=== PATIENT | male | born 1950 | race Caucasian/White ===

== ENCOUNTER 2017-04-18 08:47 | Outpatient (CLI) | payer BC, MEDICARE ==
[2017-04-18] MEDS ORDERED: ADENOSINE 90 MG/30 ML VIAL IVP ONE (10:00)
--- NOTE | 2017-04-18 12:04 | CARDIAC PROCEDURE NOTE ---
DATE OF SERVICE: 04/18/2017 00:00:00 PRIMARY CARE PHYSICIAN: Saadia Diane PA-C PROCEDURE: Pharmacological cardiac stress test. PROCEDURE SYMPTOMS: Chest pain and atrial fibrillation. CARDIAC RISK FACTORS: Include age, hypertension and hyperlipidemia. No previous cardiac procedures. CLINICAL HISTORY: A 66-year-old male without known coronary artery disease. INITIAL RESTING VITAL SIGNS: BP 138/92, heart rate 69, height 71 inches, weight 210 pounds, BMI 29.3. PROCEDURE AND FINDINGS: The patient's identity and date verified. Consent signed. Safety stop. Pharmacologic stress testing was performed with adenosine at a dose of 140 mcg/kg per minute over 6 m inutes. The heart rate increased to 95 beats per minute from the infusion. The blood pressure respons e was normal during the stress procedure. The patient developed minor infusion related symptoms, whic h resolved spontaneously. The resting electrocardiogram demonstrated atrial fibrillation with no ST o r T-wave changes. Maximum ST segment depression with stress was zero. There was no ectopy. FINAL IMPRESSION 1. Negative electrocardiogram for ischemia in the setting of vasodilator stress. 2. Negative stress test for angina. 3. Await myocardial perfusion report. JOB #: [id number] EXT JOB #:[id number]
--- NOTE | 2017-04-18 12:56 | Nuclear Medicine Prelim Report ---
Exam: NM Myocardial Perfusion STR/RST IMPRESSION: 1. Small, mild, fixed distal anteroseptal defect versus chest wall attenuation artifact. No convincin g reversible perfusion defects. 2. Normal left ventricular ejection fraction of 60%. 3. Normal segmental and global wall motion. 4. Normal left ventricular cavity size, no change with stress. [facility] SITE ID: [id number]
--- NOTE | 2017-04-18 12:58 | Nuclear Medicine Report ---
EXAM: SINGLE-ISOTOPE PHARMACOLOGICAL STRESS TEST WITH ADENOSINE. SINGLE-ISOTOPE AND SAME-DAY REST/STRESS MY OCARDIAL PERFUSION SCANS WITH TOMOGRAPHIC IMAGING, QUANTITATIVE ANALYSIS, WALL MOTION ANALYSIS AND CA LCULATION OF EJECTION FRACTION. EXAM DATE: 04/18/2017 09:53 AM. CLINICAL HISTORY: CHEST PAIN, AFIB. COMPARISON: None. TECHNIQUE: Following the intravenous administration of 8.9 mCi of Tc-99m sestamibi, a rest myocardial perfusion scan was done with tomography. Motion correction was applied when appropriate. After a delay of several hours on the same day, a pharmacological stress was performed with the infus ion of 80 mg of adenosine. According to protocol, 37.6 mCi of Tc-99m sestamibi was injected for stres s myocardial perfusion scan. Stress myocardial perfusion was done with tomography without attenuation correction. Motion correction was applied when appropriate. Gated tomographic images were obtained for wall motion analysis and computation of left ventricular ejection fraction. FINDINGS: There is some mild apical thinning noted. There is a small, mild, fixed distal anteroseptal wall defect. No reversible defects are identified. No focal wall motion abnormality is evident. The left ventricular end-diastolic volume is 99 cc. The left ventricular end-systolic volume is 39 cc . The left ventricular ejection fraction is calculated to be 60%. IMPRESSION: 1. Small, mild, fixed distal anteroseptal defect versus chest wall attenuation artifact. No convincin g reversible perfusion defects. 2. Normal left ventricular ejection fraction of 60%. 3. Normal segmental and global wall motion. 4. Normal left ventricular cavity size, no change with stress. [facility] Referring Provider Line: [phone] SITE ID: [id number]
[2017-04-18 13:26] VITALS: BP 136/92
== END 2017-04-18 08:48 | disposition home or self-care (01) ==
LOC: DI 08:47
PROVIDERS: ATTEND Physician Assistant Medical
DX: R07.9 Chest pain, unspecified (principal); I48.0 Paroxysmal atrial fibrillation
CPT/HCPCS: 78452; 93017; A9500; J0153

== ENCOUNTER 2017-06-19 13:53 | Day surgery (SDC) | payer BC, MEDICARE ==
[~2017-06-19 13:53] MED LIST: MIDAZOLAM 2 MG/2 ML VIAL IVP ONE; fentaNYL 100 MCG/2 ML VIAL IVP ONE
[2017-06-19] MEDS ORDERED: LACTATED RINGERS 1,000 ML IV ONE (14:17)
[2017-06-19 16:33] VITALS: BP 122/70
== END 2017-06-19 13:54 | disposition home or self-care (01) ==
LOC: SDS 13:53
PROVIDERS: ATTEND Internal Medicine
PROC: 0DJD8ZZ Inspection of Lower Intestinal Tract, Via Natural or Artificial Opening Endoscopic (ICD-10-PCS; principal; 2017-06-19 15:00)
DX: Z12.11 Encounter for screening for malignant neoplasm of colon (principal); K64.8 Other hemorrhoids; I48.91 Unspecified atrial fibrillation; Z79.01 Long term (current) use of anticoagulants; J45.909 Unspecified asthma, uncomplicated
CPT/HCPCS: G0121; J7120

== ENCOUNTER 2017-08-20 12:55 | Outpatient (CLI) | payer BC, MEDICARE | END 2017-08-20 12:56 | disposition home or self-care (01) | LOC: LAB.WCP 12:55 | PROVIDERS: ATTEND Physician Assistant Medical | DX: Z12.5 Encounter for screening for malignant neoplasm of prostate (principal) | CPT/HCPCS: 84153 ==

== ENCOUNTER 2017-10-15 12:13 | Outpatient (CLI) | payer BC, MEDICARE ==
--- NOTE | 2017-10-15 12:54 | CT Report ---
EXAM: CT HEAD EXAM DATE: 10/15/2017 12:36 PM. CLINICAL HISTORY: HEADACHE, ANTICOAGULATION THERAPY. COMPARISON: None. TECHNIQUE: Multiaxial CT images were obtained from the foramen magnum to the vertex. Reformats: Coron al. IV contrast: None. In accordance with CT protocol optimization, one or more of the following dose reduction techniques w ere utilized for this exam: automated exposure control, adjustment of mA and/or KV based on patient s ize, or use of iterative reconstructive technique. FINDINGS: Parenchyma: No intraparenchymal hemorrhage. No evidence of mass, midline shift, or CT findings of inf arction. Alnd-white differentiation is distinct. Extraaxial Spaces: Normal for age. No subdural or epidural collections identified. Ventricles: Mild enlargement due to age-related tissue loss. No hydrocephalus. Sinuses and Orbits: Trace right maxillary sinus membrane thickening. Bones: No evidence of fracture or calvarial defect. Other: None. IMPRESSION: No acute findings on head CT. [facility] Referring Provider Line: [phone] SITE ID: [id number]
== END 2017-10-15 12:14 | disposition home or self-care (01) ==
LOC: DI 12:13
PROVIDERS: ATTEND Family Medicine
DX: R51 Headache (principal); Z79.01 Long term (current) use of anticoagulants
CPT/HCPCS: 70450

== ENCOUNTER 2017-10-17 08:26 | Outpatient (CLI) | payer BC, MEDICARE ==
--- NOTE | 2017-10-21 08:46 | Ultrasound Report ---
ABDOMEN ULTRASOUND LIMITED RIGHT UPPER QUADRANT: 10/17/2017 COMPARISON: No comparison. INDICATION: Abnormal liver function test. TECHNIQUE: Real-time scanning of the right upper quadrant was performed with financial representative static images obtained. FINDINGS: The liver appears normal in size, contour and echogenicity. No masses. Portal venous flow is directed towards liver. There is no ascites. The gallbladder is unremarkable without stones, wall thickening or pericholecystic fluid. The pancreas is poorly evaluated due to bowel gas. The common duct measures 4 mm. There is no biliary dilation. The right kidney appears unremarkable. 10.5 cm. IMPRESSION: NEGATIVE RIGHT UPPER QUADRANT ULTRASOUND. TD: 10/21/2017 08:45 [place]
== END 2017-10-17 08:27 | disposition home or self-care (01) ==
LOC: DI 08:26
PROVIDERS: ATTEND Family Medicine
DX: R94.5 Abnormal results of liver function studies (principal)
CPT/HCPCS: 76705

== ENCOUNTER 2018-10-16 08:00 | Outpatient (CLI) | payer BC, MEDICARE | END 2018-10-16 23:59 | disposition home or self-care (01) | LOC: LAB.WCP 08:00 | PROVIDERS: ATTEND Family Medicine | DX: I48.91 Unspecified atrial fibrillation (principal); Z79.01 Long term (current) use of anticoagulants ==

== ENCOUNTER 2018-10-27 08:00 | Outpatient (CLI) | payer BC, MEDICARE | END 2018-10-27 23:59 | disposition home or self-care (01) | LOC: LAB.WCP 08:00 | PROVIDERS: ATTEND Family Medicine | DX: I48.91 Unspecified atrial fibrillation (principal); Z79.01 Long term (current) use of anticoagulants ==

== ENCOUNTER 2019-05-13 13:00 | Outpatient (CLI) | payer BC, MEDICARE | END 2019-05-13 23:59 | LOC: LAB.R 13:00 | PROVIDERS: ATTEND Physician Assistant | DX: N39.0 Urinary tract infection, site not specified (principal) | CPT/HCPCS: 87086 ==

== ENCOUNTER 2019-07-08 13:51 | Outpatient (CLI) | payer BC, MEDICARE ==
--- NOTE | 2019-07-09 15:28 | XRAY Report ---
Reason: LOW BACK PAIN Procedure Date: 07/08/2019 Accession Number: [id number] / [id number] Procedure: WCP - Lumbar Spine 2 View CPT Code: Final Report FULL RESULT: EXAM: LUMBOSACRAL SPINE RADIOGRAPHY EXAM DATE: 07/08/2019 01:51 PM. CLINICAL HISTORY: LOW BACK PAIN. COMPARISONS: None. TECHNIQUE: 2 views. FINDINGS: Alignment: Dextroscoliosis of lumbar spine. Bones: Five [id number] lumbar vertebral bodies are present. No fractures or bone lesions. There is bony fusion of the L4-L5 spinous processes. Disks: Severe degenerative disk disease L4-L5 and L5-S1. Facets: No degenerative changes. Sacroiliac Joints: Unremarkable. Soft Tissues: Atherosclerotic disease. IMPRESSION: 1. Severe degenerative disk disease L4-L5 and L5-S1. 2. There is bony fusion of the L4-L5 spinous processes. [facility]
== END 2019-07-08 23:59 | disposition home or self-care (01) ==
LOC: DI.WCP 13:51
PROVIDERS: ATTEND Nurse Practitioner Family
DX: M51.36 Other intervertebral disc degeneration, lumbar region (principal); M51.37 Other intervertebral disc degeneration, lumbosacral region; M43.26 Fusion of spine, lumbar region
CPT/HCPCS: 72100

== ENCOUNTER 2019-08-17 08:41 | Outpatient (CLI) | payer BC, MEDICARE ==
--- NOTE | 2019-08-17 11:31 | CARDIAC PROCEDURE NOTE ---
DATE OF SERVICE: 08/17/2019 Physician: Nolvia Brock MD, [facility] INDICATION: Persistent atrial fibrillation. CARDIAC RISK FACTORS 1. Male gender. 2. Advanced age. DESCRIPTION OF PROCEDURE: After signing informed consent, patient underwent a Francesco-protocol treadmill stress test. There was no imaging ordered with this test. RESTING HEART RATE: 90-120 in atrial fibrillation. PEAK HEART RATE: 176 (116% predicted maximum heart rate for age). RESTING BLOOD PRESSURE: 136/97. PEAK BLOOD PRESSURE: 141/86. SUMMARY: Patient exercised for 3 minutes on a Francesco-protocol treadmill stress test. The patient's resting heart rate was already tachycardic at rest. He achieved a peak heart rate of 176 (116% PMHR) and 4.7 METS. The patient had a normal heart rate and blood pressure response to exercise. He had perceived exertion of 11-13/20 on a Gerardo scale at peak. He denied any significant shortness of breath or chest pain. Oxygen saturation was 95-98% on room air throughout the entire test. RESTING EKG: Atrial fibrillation, rate 90-120, RSR' in V1, snd nonspecific T- wave flattening in leads I and aVL. EKG AT PEAK: No new ST segment or T-wave abnormalities. SUMMARY 1. Abnormal resting EKG. The patient is already tachycardic at rest. He reported that he took no morning medications, but did not know his medication names. 2. No significant ischemic EKG changes develop with exercise. 3. No imaging was ordered with this test. cc: Gama Rivera MD TD: 08/17/2019 11:21 MTDD
== END 2019-08-17 08:42 | disposition home or self-care (01) ==
LOC: DI 08:41
PROVIDERS: ATTEND Internal Medicine Cardiovascular Disease
DX: I48.19 Other persistent atrial fibrillation (principal)
CPT/HCPCS: 93017

== ENCOUNTER 2019-09-04 10:19 | Outpatient (CLI) | payer BC, MEDICARE ==
--- NOTE | 2019-09-04 11:00 | XRAY Report ---
Reason: RIB PAIN Procedure Date: 09/04/2019 Accession Number: [id number] / [id number] Procedure: WCP - Chest 2 View X-Ray CPT Code: 16727 Final Report FULL RESULT: EXAM: CHEST RADIOGRAPHY EXAM DATE: 09/04/2019 10:19 AM. CLINICAL HISTORY: Rib pain. COMPARISON: CHEST 2 VIEW PA/LAT 03/20/2017 11:13 AM. TECHNIQUE: 2 views. FINDINGS: Lungs/Pleura: No focal opacities evident. No pleural effusion. No pneumothorax. Normal volumes. Mediastinum: Heart and mediastinal contours are unremarkable. Other: None. IMPRESSION: No acute cardiopulmonary abnormality is detected. [facility]
== END 2019-09-04 23:59 | disposition home or self-care (01) ==
LOC: DI.WCP 10:19
PROVIDERS: ATTEND Family Medicine
DX: R07.81 Pleurodynia (principal)
CPT/HCPCS: 71046

== ENCOUNTER 2019-09-26 04:37 | Inpatient (IN) | payer BC, MEDICARE ==
[2019-09-26] MEDS ORDERED: SODIUM CHLORIDE 0.9% 1,000 ML IV ONE (05:22)
[2019-09-26 05:24] LABS: BASOPHILS % (AUTO) 0.4 %; EOSINOPHILS % (AUTO) 0.3 %; HGB - HEMOGLOBIN 14.7 g/dL (14.0-18.0); LYMPHOCYTES # (AUTO) 1.4 10^3/uL (1.5-3.5); LYMPHOCYTES % (AUTO) 13.7 %; MEAN CORPUSCULAR HEMOGLOBIN 32.2 pg (27.0-31.0); MEAN CORPUSCULAR HGB CONC 36.1 g/dL (32.0-36.0); MEAN CORPUSCULAR VOLUME 89.3 fL (80.0-94.0); MONOCYTES # (AUTO) 0.3 10^3/uL (0.0-1.0); MONOCYTES % (AUTO) 3.1 %; NEUTROPHILS # (AUTO) 8.3 10^3/uL (1.5-6.6); PLT - PLATELET COUNT 272 10^3/uL (130-450); RED BLOOD COUNT 4.56 10^6/uL (4.70-6.10); RED CELL DISTRIBUTION WIDTH 12.2 % (12.0-15.0); WHITE BLOOD COUNT 10.2 x10^3/uL (4.8-10.8)
[2019-09-26] MEDS ORDERED: diltiaZEM INJ 5 MG/ML VIAL IVP STA ×2 (05:26→08:04)
[2019-09-26 05:32] LABS: CALCIUM 8.6 mg/dL (8.5-10.3); MAGNESIUM 1.5 mg/dL (1.7-2.8)
[2019-09-26 05:37] LABS: ALBUMIN 3.8 g/dL (3.2-5.5); ALBUMIN/GLOBULIN RATIO 1.1 (1.0-2.2); BILIRUBIN,TOTAL 0.9 mg/dL (0.2-1.0); CALCIUM 8.5 mg/dL (8.5-10.3); TOTAL PROTEIN 7.2 g/dL (6.7-8.2)
--- NOTE | 2019-09-26 05:48 | ED Physician Documentation ---
<Dg Barrientos - Last Filed: 09/26/19 05:48> History of Present Illness - Stated complaint Stated Complaint: R LEG CRAMPS - Chief complaint Chief Complaint: Ext Problem PD PAST MEDICAL HISTORY - Past Medical History Past Medical History: Yes Cardiovascular: High cholesterol, Atrial fibrillation Respiratory: COPD, Other GI: GERD, Hiatal hernia : None Psych: None Musculoskeletal: Chronic back pain - Past Surgical History Past Surgical History: Yes General: Colonoscopy Ortho: Spine surgery - Present Medications Home Medications: Ambulatory Orders Medication Instructions Recorded Confirmed Melatonin 5 mg PO DAILY 06/18/17 09/26/19 Omeprazole 20 mg PO DAILY 06/18/17 09/26/19 Trazodone HCl 200 mg PO QPM 06/18/17 09/26/19 Warfarin [Coumadin] 5 mg PO DAILY 06/18/17 09/26/19 Alfuzosin HCl [Alfuzosin HCl ER] 10 mg PO DAILY 09/26/19 09/26/19 Cyclobenzaprine HCl 10 mg PO TID PRN 09/26/19 09/26/19 Famotidine 20 mg PO DAILY 09/26/19 09/26/19 Furosemide [Lasix] 20 mg PO DAILY 09/26/19 09/26/19 Metoclopramide HCl 5 mg PO DAILY 09/26/19 09/26/19 Multivitamin [Multivitamins] 1 cap PO DAILY 09/26/19 09/26/19 Oxybutynin Chloride [Ditropan Xl] 10 mg PO DAILY 09/26/19 09/26/19 Pramipexole [Mirapex] 2 tab PO DAILY 09/26/19 09/26/19 - Allergies Allergies/Adverse Reactions: Allergies Allergy/AdvReac Type Severity Reaction Status Date / Time methadone AdvReac sleep apnea Verified 09/26/19 05:11 - Social History Does the pt smoke?: No Smoking Status: Never smoker Does the pt drink ETOH?: Yes ETOH Use: Beer Does the pt have substance abuse?: No - Immunizations Immunizations are current?: Yes Departure - Departure Disposition: 66 [facility] DC/Xfer Clinical Impression: Atrial fibrillation with RVR, Dehydration Cellulitis Qualifiers: Site of cellulitis: extremity Site of cellulitis of extremity: upper extremity Laterality: right Qualified Code(s): L03.113 - Cellulitis of right upper limb Condition: Stable <Plastino,Robin B - Last Filed: 09/26/19 09:53> History of Present Illness - History obtained from History obtained from: Patient, Family - History of Present Illness Timing: How many days ago (2) - Additonal information Additional information: 69-year-old male with a history of atrial fibrillation that is persistent has d eveloped cramping in his right thigh and in his right arm. He has been in to see his doctor with this was diagnosed with bursitis yesterday he was awakened at 3:00 in the morning with cramping to the right thigh and noticed his right arm is now swollen and red. Review of Systems Constitutional: reports: Chills, Myalgias, Fatigue. denies: Fever Eyes: denies: Decreased vision Ears: denies: Ear pain Nose: denies: Rhinorrhea / runny nose, Congestion Throat: denies: Sore throat Cardiac: reports: Palpitations. denies: Chest pain / pressure Respiratory: denies: Dyspnea, Cough GI: denies: Abdominal Pain, Abdominal Swelling, Nausea, Vomiting : denies: Dysuria Skin: denies: Rash Musculoskeletal: reports: Extremity pain, Joint pain, Extremity swelling. denies: Neck pain, Back pain Neurologic: reports: Generalized weakness. denies: Focal weakness, Numbness PD ED PE NORMAL - Vitals Vital signs reviewed: Yes (Tachycardic and hypertensive) - General General: Alert and oriented X 3, Well developed/nourished, Other (tachypneic with dry mucous membrans ) - HEENT HEENT: Atraumatic, PERRL, EOMI - Cardiac Cardiac: Other (Irregularly irregular rate and rhythm with a 2 out of 6 holosystolic murmur) - Respiratory Respiratory: No respiratory distress, Clear bilaterally - Abdomen Abdomen: Soft, Non tender - Back Back: No CVA TTP, No spinal TTP - Derm Derm: Normal color, Warm and dry, No rash - Extremities Extremities: No deformity, Other (There is erythema to the right arm from the distal forearm to the mid arm with swelling mild tenderness over the olecranon. There is no fluctuance noted. Distal neurovascular components are intact.) - Neuro Neuro: Alert and oriented X 3, doormaker 2-12 intact, No motor deficit, No sensory deficit, Normal speech Eye Opening: Spontaneous Motor: Obeys Commands Verbal: Oriented GCS Score: 15 - Psych Psych: Normal mood, Normal affect Results - Vitals Vitals: Vital Signs - 24 hr 09/26/19 09/26/19 09/26/19 04:40 05:20 05:31 Temperature 37.3 C Heart Rate 140 H 151 H 149 H Respiratory 22 25 H 22 Rate Blood Pressure 148/101 H 165/93 H 152/78 H O2 Saturation 94 95 98 09/26/19 09/26/19 09/26/19 05:39 05:44 06:02 Temperature 37.8 C H Heart Rate 112 H 121 H 153 H Respiratory 25 H 19 23 Rate Blood Pressure 115/68 115/68 105/71 O2 Saturation 95 95 97 09/26/19 09/26/19 09/26/19 06:27 06:54 07:30 Temperature 38.3 C H 37.0 C 38.2 C H Heart Rate 149 H 134 H 150 H Respiratory 22 18 20 Rate Blood Pressure 105/71 122/75 118/73 O2 Saturation 94 94 95 09/26/19 09/26/19 08:30 09:30 Temperature 37.4 C Heart Rate 112 H 106 H Respiratory 16 13 Rate Blood Pressure 97/60 100/70 O2 Saturation 97 94 Oxygen O2 Source Room air - EKG (time done) 0505 QRS: Low voltage Ischemia: ST depression (minimal inferior) Compare to prior EKG: Old EKG unavailable Computer interpretation: Agree with computer - Labs Labs: Laboratory Tests 09/26/19 09/26/19 09/26/19 05:00 05:00 05:00 WBC 10.2 RBC 4.56 L Hgb 14.7 Hct 40.7 L MCV 89.3 MCH 32.2 H MCHC 36.1 H RDW 12.2 Plt Count 272 MPV 10.0 Neut # (Auto) 8.3 H Lymph # (Auto) 1.4 L [place] # (Auto) 0.3 Eos # (Auto) 0.0 Baso # (Auto) 0.0 Absolute Nucleated RBC 0.00 Nucleated RBC % 0.0 PT INR APTT Sodium 130 L Potassium 3.6 Chloride 93 L Carbon Dioxide 25 Anion Gap 12.0 BUN 12 Creatinine 1.0 Estimated GFR (MDRD) 74 L Glucose 121 H Lactic Acid Calcium 8.5 8.6 Magnesium 1.5 L Total Bilirubin 0.9 AST 22 ALT 18 Alkaline Phosphatase 80 Lactate Dehydrogenase Troponin I High Sens Total Protein 7.2 Albumin 3.8 Globulin 3.4 Albumin/Globulin Ratio 1.1 Lipase 22 09/26/19 09/26/19 09/26/19 05:00 05:00 05:20 WBC RBC Hgb Hct MCV MCH MCHC RDW Plt Count MPV Neut # (Auto) Lymph # (Auto) [place] # (Auto) Eos # (Auto) Baso # (Auto) Absolute Nucleated RBC Nucleated RBC % PT 28.6 H INR 2.7 H APTT 36.1 H Sodium Potassium Chloride Carbon Dioxide Anion Gap BUN Creatinine Estimated GFR (MDRD) Glucose Lactic Acid Calcium Magnesium Total Bilirubin AST ALT Alkaline Phosphatase Lactate Dehydrogenase 143 Troponin I High Sens 6.5 Total Protein Albumin Globulin Albumin/Globulin Ratio Lipase 09/26/19 07:00 WBC RBC Hgb Hct MCV MCH MCHC RDW Plt Count MPV Neut # (Auto) Lymph # (Auto) [place] # (Auto) Eos # (Auto) Baso # (Auto) Absolute Nucleated RBC Nucleated RBC % PT INR APTT Sodium Potassium Chloride Carbon Dioxide Anion Gap BUN Creatinine Estimated GFR (MDRD) Glucose Lactic Acid 1.4 Calcium Magnesium Total Bilirubin AST ALT Alkaline Phosphatase Lactate Dehydrogenase Troponin I High Sens Total Protein Albumin Globulin Albumin/Globulin Ratio Lipase Procedures - IVC sono (time) 0815 Bedside IVC sono: IVC measures (cm) (1.18), Dehydration (est 1 liter deficit) PD MEDICAL DECISION MAKING - ED course Complexity details: reviewed results, re-evaluated patient, considered differential, d/w patient, d/w family ED course: 69-year-old male with history of atrial fibrillation who is on Coumadin is developed some cramping in his thigh and pain in his right arm and overnight erythema and swelling is developed in the right arm consistent with acute cellulitis that extends from the distal forearm to the mid arm. The patient arrives to the emergency department tachycardic and febrile with acute onset of febrile illness. He is found to be dehydrated on interrogation of the IVC and he is administered IV saline as well a rocephin. He is administered IV diltiazem 15 and then 20mg IV. This has only minimal effect on the heart rate.
[2019-09-26 06:01] LABS: INR 2.7 (0.8-1.2); PT - PROTHROMBIN TIME 28.6 secs (9.9-12.6)
[2019-09-26 06:08] LABS: PARTIAL THROMBOPLASTIN TIME 36.1 secs (24.9-33.3)
[2019-09-26] MEDS ORDERED: MORPHINE 2 MG/ML CARPUJECT IVP STA (06:26)
[2019-09-26] MEDS ORDERED: ACETAMINOPHEN 500 MG TABLET PO STA (06:27)
[2019-09-26] MEDS ORDERED: MAGNESIUM SULFATE 2 GRAM 2 GM/50 ML BAG IV ONE ×2 (08:25→11:55)
[2019-09-26] MEDS ORDERED: cefTRIAXone 1 GM in SODIUM CHLORIDE 0.9% MINIBAG 100 ML IV STA (09:13)
--- NOTE | 2019-09-26 10:45 | HISTORY & PHYSICAL EXAMINATION ---
Chief Complaint - Chief Complaint Chief Complaint: N/V, right elbow swelling History of Present Illness - Admitted From Admitted From:: ED - History Obtained From Records Reviewed: yes History obtained from: patient, patient's , chart review Exam Limitations: none - History of Present Illness HPI Comment/Other: Eddie Abarca (Nadir) is an ill appearing 69-year old white male with a past medical history of hypertension, hyperlipidemia, chronic atrial fibrillation on Warfarin, abnormal cardiac stress test, enlarged RV, laminectomy in 1998 to repair a herniated disk, staph infection with residual neurogenic bladder, h istory of home self-caths, recurrent UTIs, erectile dysfunction, chronic insomnia, chronic pain syndrome, osteoarthritis, vitamin D deficiency, costochondritis, ARMANDO without the use of a CPAP, peripheral neuropathy, chronic right sided weakness, right foot drop, ataxia, memory loss, esophageal strict ure, GERD, hiatal hernia, BPH with urinary retention, nocturia, abnormal LFTs, narcotic dependence, and 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 The patient was brought in early this morning via private car and his , Sheri for rigors described as more right than left trembling and shaking. The patient states that he woke up from it @ 0300. He went to his PCP, Cindy Garcia yesterday for right elbow pain, and was diagnosed with bursitis. After reviewing the records, he was prescribed prednisone by Cindy Garcia. He states that there was no fluid obtained from the joint, no antibiotics prescribed. The patient notes that he also had nausea with vomiting while at home this morning, but denied fevers, chills, bloody urine, new urinary incontinence, burning with urination, confusion, a new rash (other than his right elbow), diarrhea, weight loss, a recent illness, or any other events similar to this. The patient states that he did fall a few days ago and his right elbow landed on some saw-horses, but the skin remained intact, without bruising. The patient developed a fever up to 101 F while in the ED, was found to be in a fib with RVR heart rates 170s, hypotensive with B/Ps 97/60, on room air, respirations 16-20. Labs showed a normal WBC count, INR 2.7, sodium 130, K+ 3.6, GFR 74, glucose 121, magnesium 1.5 and no other abnormalities. Blood cu ltures were obtained, urine culture is pending, an indwelling stone was ordered, MUDDs tox screen given the patients narcotic abuse history and AMS. The patient was given IV fluids, IV Rocephin, with little improvement. The patient is admitted for inpatient care for sepsis, right arm cellulitis, with a low tolerance for an orthopedic surgery consult if his right elbow shows no improvement in 24 hours. Orders to obtain admission photos are pending. History - Past Medical History Cardiovascular: reports: Hypertension, High cholesterol, Coronary artery disease, Peripheral Vascular Disease, Atrial fibrillation, Murmur, Arrhythmia Respiratory: reports: COPD, Sleep apnea (noncompliant with CPAP) Neuro: reports: Dementia (memory loss for the past 2 years), Headaches, Peripheral neuropathy Endocrine/Autoimmune: reports: None GI: reports: GERD, Hiatal hernia, Other (esophageal dilation x2) : reports: Benign prostate hypertrophy, Retention, Nocturia, Frequency HEENT: reports: Chronic vision loss, Chronic sinusitis, Chronic hearing loss Psych: reports: None Musculoskeletal: reports: Chronic back pain Derm: reports: None MRSA Hx?: No - Past Surgical History General: reports: Colonoscopy, EGD (esophageal dilitation x2) Ortho: reports: Spine surgery (Laminectomy) Cardiovascular: reports: Other (cardiac stress test-abnormal per patient) - Family & Social History Family History: Mother: , Diabetes, Type 2, Father: Family History Comment/Other: Father of old age. Mother had DM, of complications related to her DM Living arrangement: At home Living Situation: With spouse/s.o. (-Sheri), With family (son-Gurdeep) Social History Notes: The patient lives independently with his Sheri, and his son Gurdeep. 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 He was injured while working as he fell off a ladder which required a laminectomy leading to narcotic dependence. He spends his time watching TV or playing on his phone daily. They have no pets at home. He admits to tobacco dependence from age [age], occasional alcohol use (a few beers weekly), and denies illicit drug use. He wishes to be a FULL code. - Substance History Use: Uses substance without health or social issues: NONE Abuse: Recurrent use of substance despite neg consequences: NONE Dependence: Experiences withdrawal or developed tolerances: NONE - POLST Patient has POLST: No POLST Status: Full Code Meds/Allgy - Home Medications Home Medications: Ambulatory Orders Medication Instructions Recorded Confirmed Melatonin 5 mg PO DAILY 06/18/17 09/26/19 Omeprazole 20 mg PO BIDAC 06/18/17 09/26/19 Trazodone HCl 200 mg PO QPM 06/18/17 09/26/19 Warfarin [Coumadin] 5 mg PO SUMOWEFRSA 06/18/17 06/19/17 Alfuzosin HCl [Alfuzosin HCl ER] 10 mg PO DAILY 09/26/19 09/26/19 Cyclobenzaprine HCl 10 mg PO TID PRN 09/26/19 09/26/19 Famotidine 20 mg PO DAILY 09/26/19 09/26/19 Furosemide [Lasix] 20 mg PO DAILY 09/26/19 09/26/19 Metoclopramide HCl 5 mg PO TID 09/26/19 09/26/19 Multivitamin [Multivitamins] 1 cap PO DAILY 09/26/19 09/26/19 Oxybutynin Chloride [Ditropan Xl] 10 mg PO DAILY 09/26/19 09/26/19 Pramipexole [Mirapex] 2 tab PO DAILY 09/26/19 Warfarin [Coumadin] 7.5 mg PO TU 09/26/19 - Allergies Allergies/Adverse Reactions: Allergies Allergy/AdvReac Type Severity Reaction Status Date / Time methadone AdvReac sleep apnea Verified 09/26/19 05:11 Review of Systems - Constitutional Constitutional: reports: Fatigue, Weakness, Poor appetite - Ears, Nose & Throat Ears, Nose & Throat: reports: Hearing loss, Postnasal drainage, Hoarseness, Dental decay - Cardiovascular Cariovascular: reports: Irregular heart rate, Decr. exercise tolerance, Or thopnea - Respiratory Respiratory: reports: Cough (chronic), Orthopnea, SOB with exertion - Gastrointestinal Gastrointestinal: reports: Abdominal distention, Nausea, Vomiting, Reflux/heartburn, Bloating, Poor appetite - Musculoskeletal Musculoskeletal: reports: Back pain, Stiffness, Limited range of motion, Muscle weakness - Integumentary Integumentary: reports: Dryness, Pigment changes - Neurological Neurological: reports: General weakness, Headache, Memory problems, Pre-existing deficit, Abnormal gait (chronic ataxia, right foot drop) - Hematologic/Lymphatic Hematologic/Lymphatic: reports: Bruising, Bleeding tendencies (chronic coumadin) - All Other Systems All Other Systems: reports: Reviewed and negative Prior Level of Functionality: Sedentary life style, recent fall resulting in a right elbow injury (closed), patient has a chronic right foot drop, drives a car, no use of a walker, o ccasional use of a cane. Exam - Vital Signs Reviewed Vital Signs: Yes Vital Signs: Vital Signs x48h Temp Pulse Resp BP Pulse Ox 09/26/19 10:30 98.4 C H 121 H 15 113/85 H 98 09/26/19 09:30 106 H 13 100/70 94 09/26/19 08:30 37.4 C 112 H 16 97/60 97 09/26/19 07:30 38.2 C H 150 H 20 118/73 95 09/26/19 06:54 37.0 C 134 H 18 122/75 94 09/26/19 06:27 38.3 C H 149 H 22 105/71 94 09/26/19 06:02 153 H 23 105/71 97 09/26/19 05:44 37.8 C H 121 H 19 115/68 95 09/26/19 05:39 112 H 25 H 115/68 95 09/26/19 05:31 149 H 22 152/78 H 98 09/26/19 05:20 151 H 25 H 165/93 H 95 09/26/19 04:40 37.3 C 140 H 22 148/101 H 94 - Physical Exam General Appearance: positive: Alert, Mild distress Eyes Bilateral: positive: No lid inflammation ENT: positive: Pharyngeal erythema, Dry mucous membranes Neck: positive: Thyroid nml, No JVD, Trachea midline Respiratory: positive: Chest non-tender, No respiratory distress, Other (scattered crackles in bilateral low lung bases) Cardiovascular: positive: Irregularly irregular, Tachycardia, Systolic murmur, Decreased pulse(s) Peripheral Pulses: positive: 1+ Abdomen: positive: Non-tender, Nml bowel sounds, Hepatomegaly, Other (rounded, soft) Back: positive: Nml inspection Skin: positive: No rash, Warm, Diaphoresis, Other (flushed, increased redness around right elbow (outlined with marking pen)) Extremities: positive: Non-tender, No pedal edema, Joint swelling, Other (Very little hair noted to BLEs, loss of sensation to feet, right chronic foot drop) Neurologic/Psychiatric: positive: Oriented x3, Weakness, Sensory loss, Other (right sided weakness-baseline since laminectomy) Reflexes: Bicep (R): 1+ (unequal hand assistant prosecuting attorney, weaker on right, patient is right handed), Bicep (L): 3+, Ankle (R): 2+, Ankle (L): 2+ Sepsis Event Note (H) - Evaluation Current Stage of Sepsis: Sepsis Possible source of Sepsis: positive: Genitourinary, Skin/soft tissue - Sepsis Criteria Sepsis Criteria: Recorded Temperature greater than 38.3C or Less than 36C, Recorded Heart Rate greater than 90 bpm, Recorded Respiratory Rate greater than 20, HAND CANDY DIPPER: altered consciousness (unrelated to primary neuro pathology), SBP drop more than 40mHg, SBP less than 90 mmHg Conclusion/Plan - Problem List (1) Sepsis Conclusion/Plan: -Patient had rigors at home, leading to coming to the ED -Hypotension, a fib RVR with rates in the 170s, febrile, temp max 101, nausea, vomiting, slight confusion -Blood cultures are pending, chest x-ray obtained, UA with culture pending -Patient is dehydrated, dry mucous membranes, now with fevers -Start IV vanco, IV cefepime, IV fluids, await echo Acute metabolic encephalopathy -Baseline memory impairment (dementia) -No history of strokes, but with chronic right sided weakness, right foot drop -No hallucinations -Sheri notes that the patient has not been acting his normal self -Likely due to sepsis -Monitor for improvement Hypomagnesaemia -Serum magnesium is only 1.5 -May have contributed to RVR -Magnesium rider x1, start oral magnesium oxide at 400 mg PO BID -Routine labs, continue telemetry Right elbow cellulitis -Saw at PCP office on 09/25/2019, no noted redness, just swelling, diagnosed with bursitis -Prescribed Prednisone, 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 Pendleton, Cardiology on 06/11/2019, who recommended a repeat nuclear stress test since he continues to have angina. Last stress test was in 2017 -Abnormal stress test noting a small, mixed fixed distal anteroseptal defect -Anticoagulated with Coumadin -INR 2.7 -Ordering Warfarin per pharmacy to help with appropriate dose, labs -No rate control medications, was given IV diltiazem in the ED -Consider adding rate control meds after echo results -Monitor on telemetry Fall -Patient has baseline ataxia since having the staph infection which caused a right sided weakness & neurogenic bladder -Patient denies a loss of consciousness -Patient does not use a walker at home -Patient admits to chronic peripheral neuropathy, claudication bilaterally, and notes that he has chronic numbness to his feet, very little hair found on legs upon my exam -Admits to a fall a few days ago resulting in soreness/pain to his right elbow -PT/OT if indicated, no needed right now Essential hypertension -Takes only furosemide at home without any other antihypertensive medication -Holding all home meds for now -Continue on telemetry, await echo results, and monitor vital signs Hyperlipidemia -Takes nothing at home, no fish oil, no statins -No recent lipid panel -Sees Dr. Pendleton Cardiology, who recommended a repeat cardiac nuclear stress test from June 2019, no follow up yet -History of elevated LFTs, may be a contraindication to statin therapy -Suggest a statin upon discharge Neurogenic bladder -Last seen by Urology on 08/25/2019 Allie Ye MD -No longer requires self catheterizations, no recent UTI, history of recurrent infections -Medically treated using uroxatral, trospium, & oxybutynin -Now home meds are on hold to allow for aggressive treatment of sepsis as we will be using IV therapy, which could potentially be too nephrotoxic in com bination with his usual meds -Indwelling stone for accurate I/Os, patient comfort -Resume when patient has improved clinical findings and infection is determined GERD -Patient is prescribed a PPI, Reglan, and famotidine at home -Hx of hiatal hernia -Status post esophageal dilations x2, sees GI for this -Continue usual home meds, monitor labs for low magnesium Restless leg syndrome -Patient was prescribed flexeril, and Mirapex at home, waiting for pharmacy to review -Also with a history of insomnia, narcotic dependence -Resume home meds after pharmacy review Insomnia -Takes high dose Trazadone 200 mg at night, melatonin -Untreated ARMANDO, nocturia getting up at least 3 times per night are contributing factors -Resume of trazodone dose due to confusion, sepsis -Monitor ARMANDO (obstructive sleep apnea) -Patient cannot recall his age when first diagnosed -Noncompliant with home CPAP, did not like the way the mask fit -No recent sleep study -No recent echo -History of RV enlargement -Exam findings of a very enlarged abdomen, gastric complaints, chronic atrial fibrillation -Await echo results, suggest a sleep study outpatient in the near future Osteoarthritis -Since laminectomy surgery in 1998, patient has been on narcotics -Consequently, has vitamin D deficiency, micro and macro vessel dysfunction -Chronic, hospice music therapy PPI use, leading to chronically low magnesium, consequently potentially leading to bone loss -No recent bone scan -No recent fractures -Chronic pain syndrome, neck and joint pain -Treat acute pain using IV pain meds, tylenol - Lab Results Lab results reviewed: Yes Fish Bones: 09/26/19 05:00 09/26/19 05:00 Core Measures - Anticipated LOS I expect patient to be DC'd or transferred within 96 hours.: Yes - DVT/VTE - Prophylaxis VTE/DVT Device ordered at admit?: Yes VTE/DVT Prophylaxis med ordered at admit?: No Not Ordered - Medical Reason: Contraindicated - Stroke - Rehab Assessment Rehab services assessment to be ordered?: No Not Ordered - Medical Reason: Contraindicated - AMI - Statin at Admit Aspirin Prescribed on Admit: Yes
--- NOTE | 2019-09-26 11:05 | XRAY Report ---
Reason: sepsis, fever, chronic cough Procedure Date: 09/26/2019 Accession Number: [id number] / [id number] Procedure: XR - Chest 1 View X-Ray CPT Code: 97396 Final Report FULL RESULT: EXAM: CHEST RADIOGRAPHY EXAM DATE: 09/26/2019 10:54 AM. CLINICAL HISTORY: Sepsis, fever, chronic cough. COMPARISON: CHEST 2 VIEW 09/04/2019 9:52 AM. TECHNIQUE: 1 view. FINDINGS: Lungs/Pleura: New patchy opacity at the left mid to lower lung consistent with pneumonia in the correct clinical context. No significant pleural effusion or evidence of pneumothorax. Mediastinum: Within exam limitations, the cardiomediastinal contour is normal. Other: None. IMPRESSION: Left mid to lower lung opacity consistent with pneumonia in the correct clinical context. This finding should be followed radiographically to resolution. RADIA
[2019-09-26] MEDS ORDERED: LIDOCAINE 2% URO-JET 5 ML SYRINGE UR ONE (11:53)
[2019-09-26] MEDS ORDERED: VANCOMYCIN PER PHARMACY 100 GM in SODIUM CHLORIDE 0.9% 250 ML IV SCH (12:00)
[2019-09-26] MEDS: LACTATED RINGERS 1,000 ML IV SCH (12:39)
--- NOTE | 2019-09-26 13:03 | PHARMACY PROGRESS NOTE ---
- Therapy Status Vancomycin regimen day #: 1 Therapy status: Awaiting steady state Basis for treatment: Empirical Treatment indication: UROSEPSIS Trough goal: 15-20 Concurrent antibiotics: CEFEPIME Q12H + ROCEPINX1 IN ED - ALICIA Risk Risk level for Acute Kidney Injury: Moderate Acute Kidney Injury risk factors: Goal trough >15, Acute hypotensive event, S epsis - Monitoring and Recommendation Clinical response to treatment: I&O Previous 24 hours 09/24/19 09/25/19 09/26/19 23:59 23:59 23:59 Intake Total 1168 Balance 1168 Lab Results 09/26/19 05:00 BUN 12 Creatinine 1.0 Estimated GFR (MDRD) 74 L Monitoring plan: Daily serum creatinine Next trough due prior to maintenance dose #: 5 Next trough due (date/time): 09/28 @ 1330 Areas for additional monitoring: Therapy de-escalation based on culture results Pharmacy recommendation: Continue current regime
[2019-09-26 13:20] LABS: MUDS CUTOFF CONCENTRATIONS CUTOFF CONC BELOW:
[2019-09-26 13:28] LABS: BILIRUBIN,URINE NEGATIVE (NEGATIVE); GLUCOSE, URINE (UA) NEGATIVE (NEGATIVE); KETONES,URINE (UA) NEGATIVE (NEGATIVE); LEUKOCYTE ESTERASE, URINE NEGATIVE (NEGATIVE); NITRITE,URINE NEGATIVE (NEGATIVE); OCCULT BLOOD,URINE NEGATIVE (NEGATIVE); PROTEIN,URINE NEGATIVE (NEGATIVE); UROBILINOGEN,URINE 0.2 (NORMAL) E.U./dL (NORMAL)
[2019-09-26 13:34] LABS: CLARITY,URINE CLEAR (CLEAR)
[2019-09-26 13:35] LABS: AMPHETAMINE SCREEN,URINE NEGATIVE (NEGATIVE); BENZODIAZEPINES SCREEN, URINE NEGATIVE (NEGATIVE); COCAINE SCREEN URINE NEGATIVE (NEGATIVE); METHADONE SCREEN, URINE NEGATIVE (NEGATIVE); METHAMPHETAMINES SCREEN, URINE NEGATIVE (NEGATIVE); OPIATE SCREEN, URINE POSITIVE (NEGATIVE); TRICYCLIC ANTIDEPRESSANT,URINE POSITIVE (NEGATIVE)
[2019-09-26 13:36] LABS: OXYCODONE SCREEN, URINE NEGATIVE (NEGATIVE); PROPOXYPHENE SCREEN, URINE NEGATIVE (NEGATIVE)
[2019-09-26] MEDS: CEFEPIME 2 GM in SODIUM CHLORIDE 0.9% MINIBAG 100 ML IV SCH (13:55)
[2019-09-26] MEDS: FAMOTIDINE 20 MG TABLET PO SCH (13:56)
[2019-09-26 14:03] LABS: RBC,URINE None Seen /HPF (0-5)
[2019-09-26 14:04] LABS: BACTERIA,URINE None Seen /HPF (None Seen); EPITHELIAL CELLS,UR RARE Renal Tubular /HPF (<= Few); SQUAMOUS EPITHELIAL CELL,UR NONE SEEN (<= Few)
[2019-09-26] MEDS: VANCOMYCIN INJ 1 GM, VANCOMYCIN INJ 500 MG in SODIUM CHLORIDE 0.9% 500 ML IV SCH (14:52)
--- NOTE | 2019-09-26 15:43 | PHARMACY PROGRESS NOTE ---
- Best Possible Medication History Admit Date and Time: 09/26/19 1033 Processed by: Pharmacy Medication History completed: Yes Patient Interview: Completed Secondary Source(s): Pharmacy records, Insurance records As the person ultimately responsible for medication therapy, providers are able to order a medication from an existing home medication list in [facility] via the "Reconcile Routine" prior to Confirmation of that medication by developer support engineer. Such practice is discouraged except when the physician, in their clinical judgment, deems that a medical need exists for a medication without regard to previous use.
[2019-09-26] MEDS: MAGNESIUM OXIDE 400 MG TABLET PO SCH (16:11)
[2019-09-26] MEDS: METOPROLOL SUCCINATE 25 MG TABLET PO SCH (16:11)
[2019-09-26] MEDS: ACETAMINOPHEN 325 MG TABLET PO PRN ×2 (16:11→20:07)
[2019-09-26] MEDS: SODIUM CHLORIDE FLUSH 0.9% 10 ML SYRINGE IVP SCH (16:11)
[2019-09-26] MEDS: WARFARIN 5 MG TABLET PO SCH (17:17)
[2019-09-26] MEDS: traZODone 50 MG TABLET PO SCH (20:08)
[2019-09-26] MEDS: NON FORMULARY MED (Melatonin [Melatonin] 10 MG) PO SCH (20:09)
[2019-09-27] MEDS: SODIUM CHLORIDE FLUSH 0.9% 10 ML SYRINGE IVP SCH ×3 (00:40→15:58)
[2019-09-27] MEDS: CEFEPIME 2 GM in SODIUM CHLORIDE 0.9% MINIBAG 100 ML IV SCH ×2 (00:40→14:15)
[2019-09-27] MEDS: ACETAMINOPHEN 325 MG TABLET PO PRN ×4 (00:46→20:19)
[2019-09-27] MEDS: VANCOMYCIN INJ 1 GM, VANCOMYCIN INJ 500 MG in SODIUM CHLORIDE 0.9% 500 ML IV SCH ×2 (02:11→14:59)
[2019-09-27 05:51] LABS: BASOPHILS % (AUTO) 0.4 %; EOSINOPHILS # (AUTO) 0.1 10^3/uL (0.0-0.7); EOSINOPHILS % (AUTO) 0.9 %; HGB - HEMOGLOBIN 12.2 g/dL (14.0-18.0); LYMPHOCYTES # (AUTO) 1.5 10^3/uL (1.5-3.5); LYMPHOCYTES % (AUTO) 13.7 %; MEAN CORPUSCULAR HEMOGLOBIN 31.5 pg (27.0-31.0); MEAN CORPUSCULAR HGB CONC 34.6 g/dL (32.0-36.0); MEAN CORPUSCULAR VOLUME 91.2 fL (80.0-94.0); MEAN PLATELET VOLUME 9.7 fL (7.4-11.4); MONOCYTES # (AUTO) 0.7 10^3/uL (0.0-1.0); NEUTROPHILS # (AUTO) 8.6 10^3/uL (1.5-6.6); NEUTROPHILS % (AUTO) 78.5 %; PLT - PLATELET COUNT 200 10^3/uL (130-450); RED BLOOD COUNT 3.87 10^6/uL (4.70-6.10); RED CELL DISTRIBUTION WIDTH 12.7 % (12.0-15.0); WHITE BLOOD COUNT 10.9 x10^3/uL (4.8-10.8)
[2019-09-27 05:55] LABS: INR 3.4 (0.8-1.2); PT - PROTHROMBIN TIME 36.6 secs (9.9-12.6)
[2019-09-27 06:01] LABS: CALCIUM 7.9 mg/dL (8.5-10.3); CREATININE 0.9 mg/dL (0.6-1.2); MAGNESIUM 2.3 mg/dL (1.7-2.8)
[2019-09-27] MEDS: FAMOTIDINE 20 MG TABLET PO SCH (08:45)
[2019-09-27] MEDS: MAGNESIUM OXIDE 400 MG TABLET PO SCH ×2 (08:46→15:58)
[2019-09-27] MEDS: METOPROLOL SUCCINATE 25 MG TABLET PO SCH ×2 (08:46→17:22)
[2019-09-27] MEDS: LACTATED RINGERS 1,000 ML IV SCH (08:47)
--- NOTE | 2019-09-27 10:37 | PROVIDER PROGRESS NOTE ---
Subjective - Prog Note Date Prog Note Date: 09/27/19 Prog Note Time: 10:34 - Subjective Pt reports feeling: Improved Subjective: Nadir complains of increased pain to his right elbow, more swelling to the area, and a new dry cough. He states that his bladder sometimes feels as if he needs to urinate, despite the new indwelling stone. He was given a medical update regarding his medical condition with family present. He was given a copy of his diagnosis list for future use. Teaching about new medications was thankfully performed by his superb RN Saadia. His IV fluids are stopped, spironolactone started, resumed his muscle relaxer to help with the bladder spasms, and we will slowly resume his urinary retention meds. Current Medications - Current Medications Current Medications: Active Medications: Acetaminophen (Tylenol) 650 mg PO Q4HR PRN Famotidine (Pepcid) 20 mg PO DAILY [facility] Cefepime HCl 2 gm/ Sodium (Chloride) 100 mls @ 200 mls/hr IV Q12H [facility] Vancomycin HCl 500 mls @ 250 mls/hr IV Q12H [facility] Magnesium Oxide (Mag Ox) 400 mg PO BIDWM [facility] Metoprolol Succinate (Toprol Xl) 25 mg PO BIDWM [facility] Non-Formulary Medication (Melatonin [Melatonin]) 10 mg PO QPM [facility] Spironolactone (Aldactone) 25 mg PO DAILY [facility] Trazodone HCl (Desyrel) 100 mg PO QPM [facility] Warfarin Sodium (Coumadin) 5 mg PO QDDINNER [facility] Warfarin Sodium (Coumadin) 7.5 mg PO TuFr@1700 [facility] HOME meds: Melatonin 10 mg PO QPM 06/18/17 Omeprazole 20 mg PO BIDAC 06/18/17 Trazodone HCl 100 mg PO QPM 06/18/17 Warfarin [Coumadin] 5 mg PO [place] 06/18/17 Alfuzosin HCl [Alfuzosin HCl ER] 10 mg PO DAILY 09/26/19 Cyclobenzaprine HCl 10 mg PO TID PRN 09/26/19 Famotidine 20 mg PO DAILY 09/26/19 Furosemide [Lasix] 20 mg PO DAILY 09/26/19 Metoclopramide HCl 5 mg PO TID 09/26/19 Multivitamin [Multivitamins] 1 cap PO DAILY 09/26/19 Oxybutynin Chloride [Ditropan Xl] 10 mg PO DAILY 09/26/19 Pramipexole [Mirapex] 0.25 mg PO DAILY 09/26/19 Warfarin [Coumadin] 7.5 mg PO TUFR 09/26/19 Objective - Vital Signs/Intake & Output Reviewed Vital Signs: Yes Vital Signs: Vital Signs x48h Temp Pulse Pulse Resp BP Pulse Ox 09/27/19 08:00 36.4 C L 87 18 125/85 H 96 09/27/19 04:06 36.4 C L 104 H 20 93 Intake & Output: Intake & Output 09/24/19 09/25/19 09/26/19 09/27/19 23:59 23:59 23:59 23:59 Intake Total 3638.663 1169.337 Output Total 2975 450 Balance 663.663 719.337 - Objective General Appearance: positive: No acute distress, Alert Eyes Bilateral: positive: Normal inspection, No lid inflammation Eyes: OU Conjunctivae pale ENT: positive: Pharyngeal erythema, Dry mucous membranes Neck: positive: Thyroid nml, Trachea midline, Stiff neck Respiratory: positive: Chest non-tender, No respiratory distress, Wheezes (scant expiratory), Other (scattered crackles, bilaterally, + cough today) Cardiovascular: positive: No gallop, Irregularly irregular, Tachycardia, Systo lic murmur Peripheral Pulses: 1+ Radial (R), 1+ Radial (L) Abdomen: positive: Non-tender, Nml bowel sounds, Hepatomegaly, Other (rounded, soft) Back: positive: Nml inspection Skin: positive: No rash, Warm, Dry Extremities: positive: Non-tender, Full ROM, Nml appearance, Pedal edema (trace, bilaterally, + abdominal edema), Joint swelling Neurologic/Psychiatric: positive: Oriented x3, CN's nml (2-12), Motor nml, Weakness, Sensory loss, Depressed mood/affect (flat) Reflexes: Bicep (R): 1+, Bicep (L): 3+ - Lab Results Fish Bones: 09/27/19 05:39 09/27/19 05:39 Other Labs: Lab Results x24hrs 09/27/19 09/27/19 09/27/19 Range/Units 05:39 05:39 05:39 WBC (4.8-10.8) x10^3/uL RBC (4.70-6.10) 10^6/uL Hgb (14.0-18.0) g/dL Hct (42.0-52.0) % MCV (80.0-94.0) fL MCH (27.0-31.0) pg MCHC (32.0-36.0) g/dL RDW (12.0-15.0) % Plt Count (130-450) 10^3/uL MPV (7.4-11.4) fL Neut # (Auto) (1.5-6.6) 10^3/uL Lymph # (Auto) (1.5-3.5) 10^3/uL Atlantic # (Auto) (0.0-1.0) 10^3/uL Eos # (Auto) (0.0-0.7) 10^3/uL Baso # (Auto) (0.0-0.1) 10^3/uL Absolute Nucleated RBC x10^3/uL Nucleated RBC % /100WBC PT 36.6 H (9.9-12.6) secs INR 3.4 H (0.8-1.2) Sodium 135 (135-145) mmol/L Potassium 3.5 (3.5-5.0) mmol/L Chloride 103 (101-111) mmol/L Carbon Dioxide 23 (21-32) mmol/L Anion Gap 9.0 (6-13) BUN 15 (6-20) mg/dL Creatinine 0.9 (0.6-1.2) mg/dL Estimated GFR (MDRD) 84 L (>89) Glucose 101 H (70-100) mg/dL Lactic Acid 0.8 (0.5-2.2) mmol/L Calcium 7.9 L (8.5-10.3) mg/dL Magnesium 2.3 (1.7-2.8) mg/dL Urine Color Urine Clarity (CLEAR) Urine pH (5.0-7.5) PH Ur Specific Shelly (1.002-1.030) Urine Protein (NEGATIVE) mg/dL Urine Glucose (UA) (NEGATIVE) mg/dL Urine Ketones (NEGATIVE) mg/dL Urine Occult Blood (NEGATIVE) Urine Nitrite (NEGATIVE) Urine Bilirubin (NEGATIVE) Urine Urobilinogen (NORMAL) E.U./dL Ur Leukocyte Esterase (NEGATIVE) Urine RBC (0-5) /HPF Urine WBC (0-3) /HPF Ur Epithelial Cells (<= Few) /HPF Ur Squamous Epith Cells (<= Few) Urine Bacteria (None Seen) /HPF Urine Culture Comments Urine Opiates Screen (NEGATIVE) Ur Oxycodone Screen (NEGATIVE) Urine Methadone Screen (NEGATIVE) Ur Propoxyphene Screen (NEGATIVE) Ur Barbiturates Screen (NEGATIVE) Ur Tricyclics Screen (NEGATIVE) Ur Phencyclidine Scrn (NEGATIVE) Ur Amphetamine Screen (NEGATIVE) U Methamphetamines Scrn (NEGATIVE) U Benzodiazepines Scrn (NEGATIVE) Urine Cocaine Screen (NEGATIVE) U Cannabinoids Screen (NEGATIVE) 09/27/19 09/26/19 Range/Units 05:39 13:10 WBC 10.9 H (4.8-10.8) x10^3/uL RBC 3.87 L (4.70-6.10) 10^6/uL Hgb 12.2 L (14.0-18.0) g/dL Hct 35.3 L (42.0-52.0) % MCV 91.2 (80.0-94.0) fL MCH 31.5 H (27.0-31.0) pg MCHC 34.6 (32.0-36.0) g/dL RDW 12.7 (12.0-15.0) % Plt Count 200 (130-450) 10^3/uL MPV 9.7 (7.4-11.4) fL Neut # (Auto) 8.6 H (1.5-6.6) 10^3/uL Lymph # (Auto) 1.5 (1.5-3.5) 10^3/uL Atlantic # (Auto) 0.7 (0.0-1.0) 10^3/uL Eos # (Auto) 0.1 (0.0-0.7) 10^3/uL Baso # (Auto) 0.0 (0.0-0.1) 10^3/uL Absolute Nucleated RBC 0.00 x10^3/uL Nucleated RBC % 0.0 /100WBC PT (9.9-12.6) secs INR (0.8-1.2) Sodium (135-145) mmol/L Potassium (3.5-5.0) mmol/L Chloride (101-111) mmol/L Carbon Dioxide (21-32) mmol/L Anion Gap (6-13) BUN (6-20) mg/dL Creatinine (0.6-1.2) mg/dL Estimated GFR (MDRD) (>89) Glucose (70-100) mg/dL Lactic Acid (0.5-2.2) mmol/L Calcium (8.5-10.3) mg/dL Magnesium (1.7-2.8) mg/dL Urine Color YELLOW Urine Clarity CLEAR (CLEAR) Urine pH 6.0 (5.0-7.5) PH Ur Specific Shelly <=1.005 (1.002-1.030) Urine Protein NEGATIVE (NEGATIVE) mg/dL Urine Glucose (UA) NEGATIVE (NEGATIVE) mg/dL Urine Ketones NEGATIVE (NEGATIVE) mg/dL Urine Occult Blood NEGATIVE (NEGATIVE) Urine Nitrite NEGATIVE (NEGATIVE) Urine Bilirubin NEGATIVE (NEGATIVE) Urine Urobilinogen 0.2 (NORMAL) (NORMAL) E.U./dL Ur Leukocyte Esterase NEGATIVE (NEGATIVE) Urine RBC None Seen (0-5) /HPF Urine WBC 0-3 (0-3) /HPF Ur Epithelial Cells RARE Renal Tubular (<= Few) /HPF Ur Squamous Epith Cells NONE SEEN (<= Few) Urine Bacteria None Seen (None Seen) /HPF Urine Culture Comments NOT INDICATED Urine Opiates Screen POSITIVE H (NEGATIVE) Ur Oxycodone Screen NEGATIVE (NEGATIVE) Urine Methadone Screen NEGATIVE (NEGATIVE) Ur Propoxyphene Screen NEGATIVE (NEGATIVE) Ur Barbiturates Screen NEGATIVE (NEGATIVE) Ur Tricyclics Screen POSITIVE H (NEGATIVE) Ur Phencyclidine Scrn NEGATIVE (NEGATIVE) Ur Amphetamine Screen NEGATIVE (NEGATIVE) U Methamphetamines Scrn NEGATIVE (NEGATIVE) U Benzodiazepines Scrn NEGATIVE (NEGATIVE) Urine Cocaine Screen NEGATIVE (NEGATIVE) U Cannabinoids Screen NEGATIVE (NEGATIVE) ABX Reporting Has patient been on IV antibiotics over the past 48 hours?: Yes Sepsis Event Note (H) - Evaluation Current Stage of Sepsis: Resolved - Sepsis Criteria Sepsis Criteria: Recorded Heart Rate greater than 90 bpm Assessment/Plan - Problem List (1) Sepsis Impression: -Patient had rigors at home, leading to coming to the ED -Hypotension, a fib RVR with rates in the 170s, febrile, temp max 101, nausea, vomiting, slight confusion -Blood cultures show no growth, chest x-ray obtained, UA with culture without results -Sepsis is resolving today -Echo was negative for vegetation -Continue with IV vanco, IV cefepime Acute metabolic encephalopathy -Baseline memory impairment (dementia) -No history of strokes, but with chronic right sided weakness, right foot drop -No hallucinations -Resolved today -Monitor for improvement Hypomagnesaemia -Serum magnesium is only 1.5, now 2.3 -May have contributed to RVR -Continue oral magnesium oxide at 400 mg PO BID -Routine labs, continue telemetry Right elbow cellulitis -Saw at PCP office on 09/25/2019, no noted redness, just swelling, diagnosed with bursitis -Prescribed Prednisone, 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 Pendleton, Cardiology on 06/11/2019, who recommended a repeat nuclear stress test since he continues to have angina. 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 which caused a right sided weakness & neurogenic bladder -Patient denies a loss of consciousness -Patient does not use a walker at home -Patient admits to chronic peripheral neuropathy, claudication bilaterally, and notes that he has chronic numbness to his feet, very little hair found on legs upon my exam -Admits to a fall a few days ago resulting in soreness/pain to his right elbow -PT/OT if indicated, no needed right now Essential hypertension -Takes only furosemide at home without any other antihypertensive medication -Started on metoprolol, spironolactone -Continue to monitor vital signs Hyperlipidemia -Takes nothing at home, no fish oil, no statins -No recent lipid panel -Sees Dr. Pendleton Cardiology, who recommended a repeat cardiac nuclear stress test from June 2019, no follow up yet -History of elevated LFTs, may be a contraindication to statin therapy -Suggest a statin upon discharge Neurogenic bladder -Last seen by Urology on 08/25/2019 Allie Ye MD -No longer requires self catheterizations, no recent UTI, history of recurrent infections -Medically treated using uroxatral, trospium, & oxybutynin -Now home meds are on hold to allow for aggressive treatment of sepsis as we will be using IV therapy, which could potentially be too nephrotoxic in combination with his usual meds -Indwelling stone for accurate I/Os, patient comfort -Resumed muscle relaxer, resuming usual home meds for urinary retention in the AM -Resume when patient has improved clinical findings and infection is determined GERD -Patient is prescribed a PPI, Reglan, and famotidine at home -Hx of hiatal hernia -Status post esophageal dilations x2, sees GI for this -Only resumed famotidine for now -Continue usual home meds, monitor labs for low magnesium Restless leg syndrome -Continues on flexeril, holding Mirapex -Also with a history of insomnia, narcotic dependence -Continue to monitor Insomnia -Takes high dose Trazadone 200 mg at night, melatonin -Untreated ARMANDO, nocturia getting up at least 3 times per night are contributing factors -Resume of trazodone dose due to infection -Monitor ARMANDO (obstructive sleep apnea) -Patient cannot recall his age when first diagnosed -Noncompliant with home CPAP, did not like the way the mask fit -No recent sleep study -No recent echo -History of RV enlargement -Exam findings of a very enlarged abdomen, gastric complaints, chronic atrial fibrillation -Await echo results, suggest a sleep study outpatient in the near future Osteoarthritis -Since laminectomy surgery in 1998, patient has been on narcotics -Consequently, has vitamin D deficiency, micro and macro vessel dysfunction -Chronic, [facility] PPI use, leading to chronically low magnesium, consequently potentially leading to bone loss -No recent bone scan -No recent fractures -Chronic pain syndrome, neck and joint pain -Treat acute pain using IV pain meds, tylenol
[2019-09-27] MEDS: SPIRONOLACTONE 25 MG TABLET PO SCH (10:51)
[2019-09-27] MEDS: CYCLOBENZAPRINE 10 MG TABLET PO PRN ×2 (14:15→20:20)
[2019-09-27] MEDS: WARFARIN 5 MG TABLET PO SCH (17:23)
[2019-09-27] MEDS: traZODone 50 MG TABLET PO SCH (20:20)
[2019-09-27] MEDS: OXYBUTYNIN 5MG TABLET PO SCH (20:20)
[2019-09-27] MEDS: NON FORMULARY MED (Melatonin [Melatonin] 10 MG) PO SCH (20:21)
[2019-09-28] MEDS: ACETAMINOPHEN 325 MG TABLET PO PRN ×5 (01:10→21:33)
[2019-09-28] MEDS: CEFEPIME 2 GM in SODIUM CHLORIDE 0.9% MINIBAG 100 ML IV SCH ×2 (01:10→13:01)
[2019-09-28] MEDS: SODIUM CHLORIDE FLUSH 0.9% 10 ML SYRINGE IVP SCH ×3 (01:20→16:35)
[2019-09-28] MEDS: VANCOMYCIN INJ 1 GM, VANCOMYCIN INJ 500 MG in SODIUM CHLORIDE 0.9% 500 ML IV SCH ×2 (01:54→14:26)
[2019-09-28] MEDS: SODIUM CHLORIDE FLUSH 0.9% 10 ML SYRINGE IVP PRN (04:46)
[2019-09-28 05:28] LABS: BASOPHILS % (AUTO) 0.3 %; EOSINOPHILS # (AUTO) 0.2 10^3/uL (0.0-0.7); EOSINOPHILS % (AUTO) 1.7 %; HGB - HEMOGLOBIN 11.4 g/dL (14.0-18.0); LYMPHOCYTES # (AUTO) 1.5 10^3/uL (1.5-3.5); LYMPHOCYTES % (AUTO) 17.4 %; MEAN CORPUSCULAR HEMOGLOBIN 30.6 pg (27.0-31.0); MEAN CORPUSCULAR HGB CONC 33.4 g/dL (32.0-36.0); MEAN CORPUSCULAR VOLUME 91.7 fL (80.0-94.0); MONOCYTES # (AUTO) 0.6 10^3/uL (0.0-1.0); NEUTROPHILS # (AUTO) 6.3 10^3/uL (1.5-6.6); NEUTROPHILS % (AUTO) 73.1 %; PLT - PLATELET COUNT 210 10^3/uL (130-450); RED BLOOD COUNT 3.72 10^6/uL (4.70-6.10); RED CELL DISTRIBUTION WIDTH 12.8 % (12.0-15.0); WHITE BLOOD COUNT 8.7 x10^3/uL (4.8-10.8)
[2019-09-28 05:41] LABS: INR 2.4 (0.8-1.2); PT - PROTHROMBIN TIME 25.9 secs (9.9-12.6)
[2019-09-28 05:44] LABS: CALCIUM 8.1 mg/dL (8.5-10.3); CREATININE 0.8 mg/dL (0.6-1.2); CRP - C-REACTIVE PROTEIN 12.9 mg/dL (0-1.0); MAGNESIUM 2.1 mg/dL (1.7-2.8)
[2019-09-28] MEDS: MAGNESIUM OXIDE 400 MG TABLET PO SCH ×2 (07:55→17:07)
[2019-09-28] MEDS: METOPROLOL SUCCINATE 25 MG TABLET PO SCH (07:56)
[2019-09-28] MEDS: OXYBUTYNIN 5MG TABLET PO SCH ×2 (07:56→20:57)
[2019-09-28] MEDS: MULTIVITAMIN TABLET PO SCH (07:56)
[2019-09-28] MEDS: SPIRONOLACTONE 25 MG TABLET PO SCH (07:56)
[2019-09-28] MEDS: FAMOTIDINE 20 MG TABLET PO SCH (07:56)
[2019-09-28] MEDS: TAMSULOSIN 0.4 MG CAPSULE PO SCH (08:04)
[2019-09-28] MEDS: CYCLOBENZAPRINE 10 MG TABLET PO PRN (08:04)
--- NOTE | 2019-09-28 08:38 | PROVIDER PROGRESS NOTE ---
Subjective - Prog Note Date Prog Note Date: 09/28/19 Prog Note Time: 08:45 - Subjective Pt reports feeling: Improved Subjective: Nadir complains of new left knee stiffness, soreness which has developed just this AM. He wishes to have his stone out since his kidney labs have been favorable. He notes that he is not clausterphobic, and will do fine at this morning's MRI for his right elbow. He understands that this is the first day of slight improvement for his cellulitis, and will require at least one more day of IV treatment for this right bursa cellulitis, which has improved in the past 12 hours. He feels constipated this morning, and wishes to ambulate in the halls. Current Medications - Current Medications Current Medications: Active Medications: Acetaminophen (Tylenol) 650 mg PO Q4HR PRN Cyclobenzaprine HCl (Flexeril) 10 mg PO TID PRN Famotidine (Pepcid) 20 mg PO DAILY [facility] Furosemide (Lasix) 20 mg PO DAILY [facility] Cefepime HCl 2 gm/ Sodium (Chloride) 100 mls @ 200 mls/hr IV Q12H [facility] Vancomycin HCl 1 gm/Vancomycin HCl 500 mg/ Sodium Chloride 500 mls @ 250 mls/hr IV Q12H [facility] Lactulose (Enulose) 10 gm PO DAILY [facility] Magnesium Oxide (Mag Ox) 400 mg PO BIDWM [facility] Metoprolol Succinate (Toprol Xl) 25 mg PO BIDWM [facility] Multivitamins (Theragran) 1 tab PO DAILYWM [facility] Non-Formulary Medication (Melatonin [Melatonin]) 10 mg PO QPM [facility] Non-Formulary Medication (Omeprazole [Omeprazole]) 20 mg PO BIDAC [facility] Oxybutynin Chloride (Ditropan) 5 mg PO BID [facility] Polyethylene Glycol (Miralax) 17 gm PO DAILY [facility] Spironolactone (Aldactone) 25 mg PO DAILY [facility] Tamsulosin HCl (Flomax) 0.4 mg PO DAILY [facility] Trazodone HCl (Desyrel) 100 mg PO QPM [facility] Warfarin Sodium (Coumadin) 5 mg PO QDDINNER [facility] Warfarin Sodium (Coumadin) 7.5 mg PO TuFr@1700 [facility] meds: Melatonin 10 mg PO QPM 06/18/17 Omeprazole 20 mg PO BIDAC 06/18/17 Trazodone HCl 100 mg PO QPM 06/18/17 Warfarin [Coumadin] 5 mg PO [place] 06/18/17 Alfuzosin HCl [Alfuzosin HCl ER] 10 mg PO DAILY 09/26/19 Cyclobenzaprine HCl 10 mg PO TID PRN 09/26/19 Famotidine 20 mg PO DAILY 09/26/19 Furosemide [Lasix] 20 mg PO DAILY 09/26/19 Metoclopramide HCl 5 mg PO TID 09/26/19 Multivitamin [Multivitamins] 1 cap PO DAILY 09/26/19 Oxybutynin Chloride [Ditropan Xl] 10 mg PO DAILY 09/26/19 Pramipexole [Mirapex] 0.25 mg PO DAILY 09/26/19 Warfarin [Coumadin] 7.5 mg PO TUFR 09/26/19 Objective - Vital Signs/Intake & Output Reviewed Vital Signs: Yes Vital Signs: Vital Signs x48h Temp Pulse Resp BP Pulse Ox 09/28/19 07:51 36.7 C 86 20 138/90 H 94 Intake & Output: Intake & Output 09/25/19 09/26/19 09/27/19 09/28/19 23:59 23:59 23:59 23:59 Intake Total 3638.663 3153.337 1000 Output Total 2975 1550 500 Balance 173.773 7233.337 500 - Objective General Appearance: positive: Alert, Mild distress Eyes Bilateral: positive: PERRL, No lid inflammation Eyes: OU Conjunctivae pale ENT: positive: No signs of dehydration, Pharyngeal erythema Neck: positive: Thyroid nml, Trachea midline Respiratory: positive: Chest non-tender, No respiratory distress, Other (scattered crackles in low bases, clears after coughing, no wheezing) Cardiovascular: positive: No gallop, Irregularly irregular, Tachycardia, JVD present (scant), Systolic murmur Peripheral Pulses: 1+ Radial (R), 1+ Radial (L) Abdomen: positive: Non-tender, Nml bowel sounds, Hepatomegaly, Other (rounded, firm, enlarged compared to previous) Back: positive: Nml inspection Skin: positive: Color nml, No rash, Warm, Dry, Other (mildly flushed cheeks, no fevers) Extremities: positive: No pedal edema, Joint swelling (left knee mild swelling, no redness Right elbow, less redness than last PM, swelling with pitting edema, today redness is finally receding back from markers) Neurologic/Psychiatric: positive: Oriented x3, CN's nml (2-12), Motor nml, Sensation nml, Mood/affect nml Reflexes: Bicep (R): 1+, Bicep (L): 3+ - Lab Results Fish Bones: 09/28/19 04:50 09/28/19 04:50 Other Labs: Lab Results x24hrs 09/28/19 09/28/19 09/28/19 Range/Units 04:50 04:50 04:50 WBC 8.7 (4.8-10.8) x10^3/uL RBC 3.72 L (4.70-6.10) 10^6/uL Hgb 11.4 L (14.0-18.0) g/dL Hct 34.1 L (42.0-52.0) % MCV 91.7 (80.0-94.0) fL MCH 30.6 (27.0-31.0) pg MCHC 33.4 (32.0-36.0) g/dL RDW 12.8 (12.0-15.0) % Plt Count 210 (130-450) 10^3/uL MPV 10.0 (7.4-11.4) fL Neut # (Auto) 6.3 (1.5-6.6) 10^3/uL Lymph # (Auto) 1.5 (1.5-3.5) 10^3/uL Harmon # (Auto) 0.6 (0.0-1.0) 10^3/uL Eos # (Auto) 0.2 (0.0-0.7) 10^3/uL Baso # (Auto) 0.0 (0.0-0.1) 10^3/uL Absolute Nucleated RBC 0.00 x10^3/uL Nucleated RBC % 0.0 /100WBC PT 25.9 H (9.9-12.6) secs INR 2.4 H (0.8-1.2) Sodium 134 L (135-145) mmol/L Potassium 3.4 L (3.5-5.0) mmol/L Chloride 105 (101-111) mmol/L Carbon Dioxide 23 (21-32) mmol/L Anion Gap 6.0 (6-13) BUN 14 (6-20) mg/dL Creatinine 0.8 (0.6-1.2) mg/dL Estimated GFR (MDRD) 96 (>89) Glucose 90 (70-100) mg/dL Calcium 8.1 L (8.5-10.3) mg/dL Magnesium 2.1 (1.7-2.8) mg/dL C-Reactive Protein 12.9 H (0-1.0) mg/dL ABX Reporting Has patient been on IV antibiotics over the past 48 hours?: Yes Sepsis Event Note (H) - Evaluation Current Stage of Sepsis: Resolved Possible source of Sepsis: positive: Skin/soft tissue - Sepsis Criteria Sepsis Criteria: Recorded Heart Rate greater than 90 bpm Assessment/Plan - Problem List (1) Sepsis Impression: -Patient had rigors at home, leading to coming to the ED -Hypotension, a fib RVR with rates in the 170s, febrile, temp max 101, nausea, vomiting, slight confusion -Blood cultures show no growth, chest x-ray obtained, UA with culture without results -Sepsis is resolved -Echo was negative for vegetation -Continue with IV vanco, IV cefepime Acute metabolic encephalopathy -Baseline memory impairment (dementia) -No history of strokes, but with chronic right sided weakness, right foot drop -No hallucinations -Resolved -Monitor for improvement Hypomagnesaemia -Serum magnesium is only 1.5, now 2.1 -Continue oral magnesium oxide at 400 mg PO BID -Routine labs, continue telemetry Right elbow cellulitis -Saw at PCP office on 09/25/2019, no noted redness, just swelling, diagnosed with bursitis -Prescribed Prednisone, 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 Pendleton, Cardiology on 06/11/2019, who recommended a repeat nuclear stress test since he continues to have angina. Last stress test was in 2017 -Abnormal stress test noting a small, mixed fixed distal anteroseptal defect -Anticoagulated with Coumadin -INR 3.4, likely due to fluid overload (early liver congestion), now 2.4 since starting BB and Spironolactone -Warfarin per pharmacy to help with appropriate dose, labs -Continues on metoprolol for rate control -Xarelto sent to his regular pharmacy to check on the cost, since Silvino was al ready sent, but not covered by his insurance -Continue to monitor VS Fall -Patient has baseline ataxia since having the staph infection which caused a right sided weakness & neurogenic bladder -Patient denies a loss of consciousness -Patient does not use a walker at home -Patient admits to chronic peripheral neuropathy, claudication bilaterally, and notes that he has chronic numbness to his feet, very little hair found on legs upon my exam -Admits to a fall a ~5 days prior to admission; resulting in soreness/pain to his right elbow -PT/OT if indicated, no needed right now Essential hypertension -Takes only furosemide at home without any other antihypertensive medication -Continues on metoprolol, spironolactone, resuming home dose of lasix -Continue to monitor vital signs Hyperlipidemia -Takes nothing at home, no fish oil, no statins -No recent lipid panel -Sees Dr. Pendleton Cardiology, who recommended a repeat cardiac nuclear stress test from June 2019, no follow up yet -History of elevated LFTs, may be a contraindication to statin therapy -Suggest a statin upon discharge Neurogenic bladder -Last seen by Urology on 08/25/2019 Allie Ye MD -No longer requires self catheterizations, no recent UTI, history of recurrent infections -Medically treated using uroxatral, trospium, & oxybutynin -Now home meds are on hold to allow for aggressive treatment of sepsis as we will be using IV therapy, which could potentially be too nephrotoxic in combination with his usual meds -Indwelling stone for accurate I/Os, patient comfort -Resumed muscle relaxer, resuming usual home meds for urinary retention in the AM -Resume when patient has improved clinical findings and infection is determined GERD -Patient is prescribed a PPI, Reglan, and famotidine at home -Hx of hiatal hernia -Status post esophageal dilations x2, sees GI for this -Continues on famotidine, resumed PPI today -Continue usual home meds, monitor labs for low magnesium Restless leg syndrome -Continues on flexeril, holding Mirapex -Also with a history of insomnia, narcotic dependence -Continue to monitor Insomnia -Takes high dose Trazadone 200 mg at night, melatonin -Untreated ARMANDO, nocturia getting up at least 3 times per night are contributing factors -Resume of trazodone dose due to infection -Monitor ARMANDO (obstructive sleep apnea) -Patient cannot recall his age when first diagnosed -Noncompliant with home CPAP, did not like the way the mask fit -No recent sleep study -No recent echo -History of RV enlargement -Exam findings of a very enlarged abdomen, gastric complaints, chronic atrial fibrillation -Await echo results, suggest a sleep study outpatient in the near future Osteoarthritis -Since laminectomy surgery in 1998, patient has been on narcotics -Consequently, has vitamin D deficiency, micro and macro vessel dysfunction -Chronic, nursing home PPI use, leading to chronically low magnesium, consequently potentially leading to bone loss -No recent bone scan -No recent fractures -Chronic pain syndrome, neck and joint pain -Treat acute pain using pain meds, tylenol
[2019-09-28] MEDS ORDERED: ALFUZOSIN HCL 10 MG PO SCH (09:00)
[2019-09-28] MEDS: LACTULOSE 10 GM /15 ML UDC PO SCH (09:34)
[2019-09-28] MEDS: FUROSEMIDE 20 MG TABLET PO SCH (09:34)
[2019-09-28] MEDS: polyethylene glycoL 3350 17 GM PACKET PO SCH (09:34)
[2019-09-28] MEDS ORDERED: GADOBUTROL 10 MMOL/10 ML VIAL ONE (10:20)
[2019-09-28] MEDS ORDERED: GADOBUTROL 10 MMOL/10 ML VIAL IVP ONE (11:07)
--- NOTE | 2019-09-28 11:48 | MRI Report ---
Reason: bursitis Procedure Date: 09/28/2019 Accession Number: [id number] / [id number] Procedure: MRI - Elbow RT W/WO CPT Code: Final Report FULL RESULT: EXAM: RIGHT ELBOW MRI WITHOUT AND WITH CONTRAST EXAM DATE: 09/28/2019 11:26 AM. CLINICAL HISTORY: Redness/swelling since last Saturday. Pain throughout elbow. COMPARISON: None. TECHNIQUE: Multiplanar, multisequence T1-weighted and fluid-sensitive sequences of the elbow before and after administration of intravenous contrast. IV contrast: 10 mL of Gadavist. Other: None. FINDINGS: Bones: There are small osteophytes at the trochlea and olecranon, consistent with mild osteoarthritis. Articular Cartilage: Mild erosion of the humeral ulna cartilage. Ligaments: The ulnar collateral, lateral ulnar collateral, radial collateral, and annular ligaments are intact. Tendons: The common flexor and extensor tendons are unremarkable. The distal biceps, brachialis, and triceps tendons are unremarkable. Musculature: Unremarkable. Other: The cubital tunnel and ulnar nerve are unremarkable. The olecranon bursa is filled with fluid but does not enhance, which may indicate low-grade olecranon bursitis. There is extensive subcutaneous edema and enhancement surrounding the elbow, which may indicate cellulitis. There is no appreciable subcutaneous abscess. IMPRESSION: 1. Extensive subcutaneous edema without a visible abscess. 2. Fluid in the olecranon bursa which may indicate bursitis. 3. Mild osteoarthritis of the humeroulnar articulation. RADIA
[2019-09-28] MEDS: PANTOPRAZOLE 40 MG TABLET PO SCH (12:10)
[2019-09-28 14:22] LABS: VANCOMYCIN,TROUGH 17.8 ug/mL (10.0-20.0)
--- NOTE | 2019-09-28 16:01 | PHARMACY PROGRESS NOTE ---
- Therapy Status Vancomycin regimen day #: 3 Therapy status: Trough therapeutic Basis for treatment: Empirical Treatment indication: sepsis, right elbow cellulitis Trough goal: 15-20 Concurrent antibiotics: cefepime - ALICIA Risk Risk level for Acute Kidney Injury: Moderate Acute Kidney Injury risk factors: Goal trough >15, Acute hypotensive event, Sepsis - Monitoring and Recommendation Clinical response to treatment: I&O Previous 24 hours 09/26/19 09/27/19 09/28/19 23:59 23:59 23:59 Intake Total 3638.663 3153.337 1700 Output Total 2975 1550 1620 Balance 453.197 4456.337 80 Lab Results 09/28/19 09/27/19 09/26/19 04:50 05:39 05:00 BUN 14 15 12 Creatinine 0.8 0.9 1.0 Estimated GFR (MDRD) 96 84 L 74 L Vancomycin Monitoring 09/28/19 13:54 Vancomycin Trough 17.8 Cultures 09/26/19 07:10 Blood Blood Culture - Preliminary NO GROWTH AFTER 2 DAYS 09/26/19 07:00 Blood Blood Culture - Preliminary NO GROWTH AFTER 2 DAYS Monitoring plan: Daily serum creatinine Areas for additional monitoring: IV to PO when appropriate, Therapy de- escalation based on culture results, Acute Kidney Injury Pharmacy recommendation: Continue current regime
[2019-09-28] MEDS ORDERED: POTASSIUM CHLORIDE 10 MEQ CAPSULE PO ONE (16:05)
--- NOTE | 2019-09-28 16:26 | PHARMACY PROGRESS NOTE ---
- Monitoring Indication for anticoagulation: Atrial Fibrillation Goal INR: 2-3 (per provider) Previous home regime: warfarin 5 mg po daily except TUFR = 7.5 mg Potentially interacting medications: cefepime, trazodon, lactulose, spironolactone, vancomycin, melatonin,ac taminophen Risk factors for bleed: Hypertension, Heart disease or MT, Age >65 - Recommendations Dosing: Anticoagulation Monitoring 09/28/19 09/28/19 09/27/19 04:50 04:50 05:39 Hgb 11.4 L Hct 34.1 L PT 25.9 H 36.6 H INR 2.4 H 3.4 H 09/27/19 09/26/19 09/26/19 05:39 05:00 05:00 Hgb 12.2 L 14.7 Hct 35.3 L 40.7 L PT 28.6 H INR 2.7 H Last Dose Given: S&S of bleeding: home dosing was resumed, recommending daily INR monitoring, signs and symptoms of bleeding
[2019-09-28] MEDS ORDERED: PIPERACILLIN/TAZOBACTAM 3.375 GM in SODIUM CHLORIDE 0.9% MINIBAG 100 ML IV ONE (17:00)
[2019-09-28] MEDS: WARFARIN 5 MG TABLET PO SCH (17:07)
[2019-09-28] MEDS: NON FORMULARY MED (Melatonin [Melatonin] 10 MG) PO SCH (20:57)
[2019-09-28] MEDS: traZODone 50 MG TABLET PO SCH (20:57)
[2019-09-28] MEDS: PIPERACILLIN/TAZOBACTAM 3.375 GM in SODIUM CHLORIDE 0.9% MINIBAG 100 ML IV SCH (21:25)
[2019-09-29] MEDS: VANCOMYCIN INJ 1 GM, VANCOMYCIN INJ 500 MG in SODIUM CHLORIDE 0.9% 500 ML IV SCH ×2 (01:51→14:32)
[2019-09-29] MEDS: SODIUM CHLORIDE FLUSH 0.9% 10 ML SYRINGE IVP SCH ×3 (01:52→13:16)
[2019-09-29 05:22] LABS: BASOPHILS % (AUTO) 0.6 %; EOSINOPHILS # (AUTO) 0.2 10^3/uL (0.0-0.7); EOSINOPHILS % (AUTO) 2.4 %; HGB - HEMOGLOBIN 11.9 g/dL (14.0-18.0); LYMPHOCYTES # (AUTO) 1.4 10^3/uL (1.5-3.5); LYMPHOCYTES % (AUTO) 19.4 %; MEAN CORPUSCULAR HEMOGLOBIN 30.8 pg (27.0-31.0); MEAN CORPUSCULAR HGB CONC 34.2 g/dL (32.0-36.0); MEAN CORPUSCULAR VOLUME 90.2 fL (80.0-94.0); MEAN PLATELET VOLUME 9.6 fL (7.4-11.4); MONOCYTES # (AUTO) 0.5 10^3/uL (0.0-1.0); MONOCYTES % (AUTO) 7.1 %; NEUTROPHILS % (AUTO) 69.9 %; PLT - PLATELET COUNT 221 10^3/uL (130-450); RED BLOOD COUNT 3.86 10^6/uL (4.70-6.10); RED CELL DISTRIBUTION WIDTH 12.6 % (12.0-15.0); WHITE BLOOD COUNT 7.2 x10^3/uL (4.8-10.8)
[2019-09-29 05:26] LABS: INR 1.8 (0.8-1.2); PT - PROTHROMBIN TIME 19.8 secs (9.9-12.6)
[2019-09-29 05:42] LABS: ALBUMIN 2.8 g/dL (3.2-5.5); ALBUMIN/GLOBULIN RATIO 0.9 (1.0-2.2); BILIRUBIN,TOTAL 0.8 mg/dL (0.2-1.0); CALCIUM 8.2 mg/dL (8.5-10.3); CREATININE 0.9 mg/dL (0.6-1.2); CRP - C-REACTIVE PROTEIN 8.5 mg/dL (0-1.0); MAGNESIUM 1.8 mg/dL (1.7-2.8)
[2019-09-29] MEDS: PIPERACILLIN/TAZOBACTAM 3.375 GM in SODIUM CHLORIDE 0.9% MINIBAG 100 ML IV SCH ×3 (05:55→17:59)
[2019-09-29] MEDS: ACETAMINOPHEN 325 MG TABLET PO PRN ×2 (06:00→13:15)
[2019-09-29] MEDS ORDERED: METOPROLOL SUCCINATE 25 MG TABLET PO SCH (08:00)
[2019-09-29] MEDS: CYCLOBENZAPRINE 10 MG TABLET PO PRN (08:51)
[2019-09-29] MEDS: MULTIVITAMIN TABLET PO SCH (08:51)
[2019-09-29] MEDS: OXYBUTYNIN 5MG TABLET PO SCH ×2 (08:51→20:35)
[2019-09-29] MEDS: FAMOTIDINE 20 MG TABLET PO SCH (08:52)
[2019-09-29] MEDS: MAGNESIUM OXIDE 400 MG TABLET PO SCH ×2 (08:52→17:59)
[2019-09-29] MEDS: PANTOPRAZOLE 40 MG TABLET PO SCH (08:53)
[2019-09-29] MEDS: TAMSULOSIN 0.4 MG CAPSULE PO SCH (08:53)
[2019-09-29] MEDS: SPIRONOLACTONE 25 MG TABLET PO SCH (08:54)
[2019-09-29] MEDS: FUROSEMIDE 20 MG TABLET PO SCH (08:54)
[2019-09-29] MEDS: polyethylene glycoL 3350 17 GM PACKET PO SCH (08:55)
[2019-09-29] MEDS: LACTULOSE 10 GM /15 ML UDC PO SCH (08:55)
[2019-09-29] MEDS: oxyCODONE 5 MG TABLET PO PRN (14:59)
--- NOTE | 2019-09-29 16:47 | XRAY Report ---
Reason: swelling, pain, fall Procedure Date: 09/29/2019 Accession Number: [id number] / [id number] Procedure: XR - Knee 2 View LT CPT Code: Final Report FULL RESULT: EXAM: LEFT KNEE RADIOGRAPHY EXAM DATE: 09/29/2019 03:49 PM. CLINICAL HISTORY: Swelling, pain, fall. COMPARISON: None. TECHNIQUE: 3 views. FINDINGS: Bones: Normal. No fractures or bone lesions. Joints: Moderate tricompartmental degenerative changes of left knee joint Soft Tissues: Normal. No soft tissue swelling. IMPRESSION: Moderate tricompartmental degenerative changes of left knee joint. No acute displaced fracture or malalignment in clinical setting of trauma. RADIA
[2019-09-29] MEDS ORDERED: WARFARIN 2.5 MG TABLET PO SCH (17:00)
--- NOTE | 2019-09-29 17:23 | PROVIDER PROGRESS NOTE ---
Subjective - Prog Note Date Prog Note Date: 09/29/19 Prog Note Time: 17:21 - Subjective Pt reports feeling: Improved Subjective: Nadir continues to complain of pain in his left knee, and is concerned that is is related to his current right elbow cellulitis. There is obvious swelling and decreased ROM related to this. He notes that it is more painful when he puts weight on it. X-ray results of the left knee were shared, in that there are no fractures, arthritis, no other abnormalities. His family is at his bedside. The patient states he would like to have Xarelto at home, despite the $50 per month co-pay since this will require no INR labs. Current Medications - Current Medications Current Medications: Active Medications: Acetaminophen (Tylenol) 650 mg PO Q4HR PRN Cyclobenzaprine HCl (Flexeril) 10 mg PO TID PRN Famotidine (Pepcid) 20 mg PO DAILY DYLON Furosemide (Lasix) 20 mg PO DAILY DYLON Vancomycin HCl 1 gm/Vancomycin HCl 500 mg/ Sodium Chloride 500 mls @ 250 mls/hr IV Q12H DYLON Piperacillin Sod/[id number] mls @ 200 mls/hr IV Q6HR DYLON Ketorolac Tromethamine (Toradol Inj (15mg) 15 mg IVP Q6HR PRN Lactulose (Enulose) 10 gm PO DAILY DYLON Lisinopril (Zestril) 5 mg PO DAILY DYLON Magnesium Oxide (Mag Ox) 400 mg PO BIDWM [facility] Metoprolol Succinate (Toprol Xl) 25 [facility] Multivitamins (Theragran) 1 tab PO DAILY[facility] Non-Formulary Medication (Melatonin [Melatonin]) 10 mg PO QPM DYLON Ondansetron HCl (Zofran Inj) 4 mg IVP Q6HR PRN Oxybutynin Chloride (Ditropan) 5 mg PO BID DYLON Oxycodone HCl (Roxicodone) 5 mg PO Q4HR PRN Pantoprazole Sodium (Protonix) 40 mg PO DAILY DYLON Polyethylene Glycol (Miralax) 17 gm PO DAILY DYLON Rivaroxaban (Xarelto) 20 mg PO 1700 DYLON Spironolactone (Aldactone) 25 mg PO DAILY DYLON Tamsulosin HCl (Flomax) 0.4 mg PO DAILY DYLON Trazodone HCl (Desyrel) 100 mg PO QPM DYLON HOME meds: Melatonin 10 mg PO QPM 06/18/17 Omeprazole 20 mg PO BIDAC 06/18/17 Trazodone HCl 100 mg PO QPM 06/18/17 Alfuzosin HCl [Alfuzosin HCl ER] 10 mg PO DAILY 09/26/19 Cyclobenzaprine HCl 10 mg PO TID PRN 09/26/19 Famotidine 20 mg PO DAILY 09/26/19 Furosemide [Lasix] 20 mg PO DAILY 09/26/19 Metoclopramide HCl 5 mg PO TID 09/26/19 Multivitamin [Multivitamins] 1 cap PO DAILY 09/26/19 Oxybutynin Chloride [Ditropan Xl] 10 mg PO DAILY 09/26/19 Pramipexole [Mirapex] 0.25 mg PO DAILY 09/26/19 Xarelto 20mg PO daily (new), replaces Warfarin Objective - Vital Signs/Intake & Output Reviewed Vital Signs: Yes Vital Signs: Vital Signs x48h Temp Pulse Resp BP Pulse Ox 09/29/19 15:54 36.2 C L 90 20 130/99 H 100 Intake & Output: Intake & Output 09/26/19 09/27/19 09/28/19 09/29/19 23:59 23:59 23:59 23:59 Intake Total 3638.663 3153.337 2870 2256.667 Output Total 2975 1550 2170 2000 Balance 181.902 6514.337 700 256.667 - Objective General Appearance: positive: No acute distress, Alert Eyes Bilateral: positive: PERRL, No lid inflammation ENT: positive: Pharynx nml, No signs of dehydration Neck: positive: No JVD, Trachea midline Respiratory: positive: Chest non-tender, No respiratory distress, Breath sounds nml Cardiovascular: positive: Regular rate & rhythm, No gallop, Tachycardia, Systolic murmur, Decreased pulse(s) Peripheral Pulses: 1+ Radial (R), 1+ Radial (L) Abdomen: positive: Non-tender, Nml bowel sounds, Other (rounded, firm) Back: positive: Nml inspection Skin: positive: Color nml, No rash, Warm, Dry Extremities: positive: Pedal edema, Joint swelling (left knee) Neurologic/Psychiatric: positive: Oriented x3, CN's nml (2-12), Motor nml, Sensation nml, Weakness Reflexes: Bicep (R): 3+, Bicep (L): 3+ - Lab Results Fish Bones: 09/29/19 05:15 09/29/19 05:15 Other Labs: Lab Results x24hrs 09/29/19 09/29/19 09/29/19 Range/Units 05:15 05:15 05:15 WBC 7.2 (4.8-10.8) x10^3/uL RBC 3.86 L (4.70-6.10) 10^6/uL Hgb 11.9 L (14.0-18.0) g/dL Hct 34.8 L (42.0-52.0) % MCV 90.2 (80.0-94.0) fL MCH 30.8 (27.0-31.0) pg MCHC 34.2 (32.0-36.0) g/dL RDW 12.6 (12.0-15.0) % Plt Count 221 (130-450) 10^3/uL MPV 9.6 (7.4-11.4) fL Neut # (Auto) 5.0 (1.5-6.6) 10^3/uL Lymph # (Auto) 1.4 L (1.5-3.5) 10^3/uL [place] # (Auto) 0.5 (0.0-1.0) 10^3/uL Eos # (Auto) 0.2 (0.0-0.7) 10^3/uL Baso # (Auto) 0.0 (0.0-0.1) 10^3/uL Absolute Nucleated RBC 0.00 x10^3/uL Nucleated RBC % 0.0 /100WBC PT (9.9-12.6) secs INR (0.8-1.2) Sodium 137 (135-145) mmol/L Potassium 3.5 (3.5-5.0) mmol/L Chloride 104 (101-111) mmol/L Carbon Dioxide 24 (21-32) mmol/L Anion Gap 9.0 (6-13) BUN 11 (6-20) mg/dL Creatinine 0.9 (0.6-1.2) mg/dL Estimated GFR (MDRD) 84 L (>89) Glucose 108 H (70-100) mg/dL Lactic Acid 0.7 (0.5-2.2) mmol/L Uric Acid 4.0 (2.6-7.2) mg/dL Calcium 8.2 L (8.5-10.3) mg/dL Magnesium 1.8 (1.7-2.8) mg/dL Total Bilirubin 0.8 (0.2-1.0) mg/dL AST 21 (10-42) IU/L ALT 19 (10-60) IU/L Alkaline Phosphatase 84 (42-121) IU/L C-Reactive Protein 8.5 H (0-1.0) mg/dL Total Protein 6.0 L (6.7-8.2) g/dL Albumin 2.8 L (3.2-5.5) g/dL Globulin 3.2 (2.1-4.2) g/dL Albumin/Globulin Ratio 0.9 L (1.0-2.2) //20 Range/Units 05:15 WBC (4.8-10.8) x10^3/uL RBC (4.70-6.10) 10^6/uL Hgb (14.0-18.0) g/dL Hct (42.0-52.0) % MCV (80.0-94.0) fL MCH (27.0-31.0) pg MCHC (32.0-36.0) g/dL RDW (12.0-15.0) % Plt Count (130-450) 10^3/uL MPV (7.4-11.4) fL Neut # (Auto) (1.5-6.6) 10^3/uL Lymph # (Auto) (1.5-3.5) 10^3/uL [place] # (Auto) (0.0-1.0) 10^3/uL Eos # (Auto) (0.0-0.7) 10^3/uL Baso # (Auto) (0.0-0.1) 10^3/uL Absolute Nucleated RBC x10^3/uL Nucleated RBC % /100WBC PT 19.8 H (9.9-12.6) secs INR 1.8 H (0.8-1.2) Sodium (135-145) mmol/L Potassium (3.5-5.0) mmol/L Chloride (101-111) mmol/L Carbon Dioxide (21-32) mmol/L Anion Gap (6-13) BUN (6-20) mg/dL Creatinine (0.6-1.2) mg/dL Estimated GFR (MDRD) (>89) Glucose (70-100) mg/dL Lactic Acid (0.5-2.2) mmol/L Uric Acid (2.6-7.2) mg/dL Calcium (8.5-10.3) mg/dL Magnesium (1.7-2.8) mg/dL Total Bilirubin (0.2-1.0) mg/dL AST (10-42) IU/L ALT (10-60) IU/L Alkaline Phosphatase (42-121) IU/L C-Reactive Protein (0-1.0) mg/dL Total Protein (6.7-8.2) g/dL Albumin (3.2-5.5) g/dL Globulin (2.1-4.2) g/dL Albumin/Globulin Ratio (1.0-2.2) ABX Reporting Has patient been on IV antibiotics over the past 48 hours?: Yes Sepsis Event Note (H) - Evaluation Current Stage of Sepsis: Resolved Possible source of Sepsis: positive: Skin/soft tissue - Sepsis Criteria Sepsis Criteria: Recorded Heart Rate greater than 90 bpm Assessment/Plan - Problem List (1) Sepsis Impression: -Patient had rigors at home, leading to coming to the ED -Hypotension, a fib RVR with rates in the 170s, febrile, temp max 101, nausea, vomiting, slight confusion -Blood cultures show no growth, chest x-ray obtained, UA with culture without results -Sepsis is resolved -Echo was negative for vegetation -Continue with IV vanco, IV Zosyn Hypomagnesaemia -Serum magnesium is only 1.5, now 2.1 -Continue oral magnesium oxide at 400 mg PO BID -Routine labs, continue telemetry Right elbow cellulitis -Saw at PCP office on 09/25/2019, no noted redness, just swelling, diagnosed with bursitis -Prescribed Prednisone, but 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 Pendleton, Cardiology on 06/11/2019, who recommended a repeat nuclear stress test since he continues to have angina. 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 & neurogenic bladder -Patient denies a loss of consciousness -Patient does not use a walker at home -Patient admits to chronic peripheral neuropathy, claudication bilaterally, and notes that he has chronic numbness to his feet, very little hair found on legs upon my exam -Admits to a fall a ~5 days prior to admission; resulting in soreness/pain to his right elbow -2 day history of left knee discomfort, likely related to his recent fall, imaging is negative -PT/OT if indicated, not needed right now Essential hypertension -Takes only furosemide at home without any other antihypertensive medication -Continues on metoprolol, spironolactone, home dose of lasix -Continue to monitor vital signs Hyperlipidemia -Takes nothing at home, no fish oil, no statins -No recent lipid panel -Sees Dr. Pendleton Cardiology, who recommended a repeat cardiac nuclear stress test from June 2019, no follow up yet -History of elevated LFTs, may be a contraindication to statin therapy -Suggest a statin upon discharge Neurogenic bladder -Last seen by Urology on 08/25/2019 Allie Ye MD -No longer requires self catheterizations, no recent UTI, history of recurrent infections -Medically treated using uroxatral, trospium, & oxybutynin -Now home meds are on hold to allow for aggressive treatment of sepsis as we will be using IV therapy, which could potentially be too nephrotoxic in combination with his usual meds -Indwelling stone has been discontinued -Resumed muscle relaxer, resuming usual home meds for urinary retention -Resume when patient has improved clinical findings and infection is determined GERD -Patient is prescribed a PPI, Reglan, and famotidine at home -Hx of hiatal hernia -Status post esophageal dilations x2, sees GI for this -Continues on famotidine, resumed PPI -Continue usual home meds, monitor labs for low magnesium Restless leg syndrome -Continues on flexeril, holding Mirapex -Also with a history of insomnia, narcotic dependence -Continue to monitor Insomnia -Takes high dose Trazadone 200 mg at night, melatonin -Untreated ARMANDO, nocturia getting up at least 3 times per night are contributing factors -Resume of trazodone dose due to infection -Monitor ARMANDO (obstructive sleep apnea) -Patient cannot recall his age when first diagnosed -Noncompliant with home CPAP, did not like the way the mask fit -No recent sleep study -No recent echo -History of RV enlargement -Exam findings of a very enlarged abdomen, gastric complaints, chronic atrial fibrillation -Await echo results, suggest a sleep study outpatient in the near future Osteoarthritis -Since laminectomy surgery in 1998, patient has been on narcotics -Consequently, has vitamin D deficiency, micro and macro vessel dysfunction -Chronic, terminal makeup operator PPI use, leading to chronically low magnesium, consequently potentially leading to bone loss -No recent bone scan -No recent fractures -Chronic pain syndrome, neck and joint pain -Treat acute pain using pain meds, tylenol Acute metabolic encephalopathy -Baseline memory impairment (dementia) -No history of strokes, but with chronic right sided weakness, right foot drop -No hallucinations -Resolved -Monitor for improvement
[2019-09-29] MEDS ORDERED: MAGNESIUM CITRATE 296 ML BOTTLE PO ONE (17:54)
[2019-09-29] MEDS: RIVAROXABAN 10 MG TABLET PO SCH (18:39)
[2019-09-29] MEDS: lisinopriL 5 MG TABLET PO SCH (18:39)
[2019-09-29] MEDS: METOPROLOL SUCCINATE 25 MG TABLET PO SCH (18:39)
[2019-09-29] MEDS ORDERED: KETOROLAC 15 MG/ML VIAL IVP PRN (19:32)
[2019-09-29] MEDS ORDERED: ONDANSETRON 4 MG/2 ML VIAL IVP PRN (20:01)
[2019-09-29] MEDS: SODIUM CHLORIDE FLUSH 0.9% 10 ML SYRINGE IVP PRN (20:33)
[2019-09-29] MEDS: NON FORMULARY MED (Melatonin [Melatonin] 10 MG) PO SCH (20:35)
[2019-09-29] MEDS: traZODone 50 MG TABLET PO SCH (20:35)
[2019-09-29] MEDS ORDERED: SODIUM CHLORIDE 0.9% 500 ML ONE (23:47)
[2019-09-30] MEDS: SODIUM CHLORIDE FLUSH 0.9% 10 ML SYRINGE IVP SCH ×3 (00:07→16:38)
[2019-09-30] MEDS: PIPERACILLIN/TAZOBACTAM 3.375 GM in SODIUM CHLORIDE 0.9% MINIBAG 100 ML IV SCH ×2 (00:07→05:39)
[2019-09-30] MEDS: CYCLOBENZAPRINE 10 MG TABLET PO PRN (01:36)
[2019-09-30] MEDS: VANCOMYCIN INJ 1 GM, VANCOMYCIN INJ 500 MG in SODIUM CHLORIDE 0.9% 500 ML IV SCH (01:37)
--- NOTE | 2019-09-30 08:16 | Discharge Plan ---
Discharge Plan Problem Reviewed?: Yes Disposition: Home, Self Care Condition: Good Prescriptions: Clindamycin HCl [Clindamycin 300MG CAP] 300 mg PO QID #40 capsule lisinopriL [Lisinopril] 2.5 mg PO DAILY #30 tablet Magnesium Oxide [Mag Ox] 400 mg PO BIDWM #60 tablet Metoprolol Succinate [Toprol Xl] 25 mg PO BIDWM #60 tablet polyethylene glycoL 3350 [Miralax] 17 gm PO DAILY #30 packet Rivaroxaban [Xarelto] 20 mg PO DAILY #30 tablet Spironolactone [Aldactone] 25 mg PO DAILY #30 tablet Diet: Low Sodium Activity Restrictions: Activity as Tolerated Shower Restrictions: No Instruction Topics: Rivaroxaban oral tablets, Metoprolol extended-release tablets, Lisinopril tablets, Spironolactone tablets, ED CHF Right Side Health Concerns: Sepsis (This has resolved, but at first you had these symptoms including fevers, white blood cell count, low blood pressures, fast heart rate, all indicating a more severe infection) Hypomagnesemia (low magnesium in your blood) Cellulitis of right elbow (infection which became severe enough to be in the hospital, which originated from your right elbow bursa) Atrial fibrillation with Rapid Ventricular Rate (This has remained stable, but you have been started on a rate control medication to help preserve your heart, and changed from Coumadin to Xarelto) Fall (determined to be an accidental, mechanical fall, in other words, you did not lose consciousness) Essential hypertension (Added very low dose lisinopril, indicated for preservation of your heart) Cor Pulmonale (Right heart failure, your right heart is severely enlarged, resulting in fluid retention, and as a result you have an enlarged abdomen) Obstructive sleep apnea (You will need a sleep study to slow the progression of your right heart failure) Plan of Treatment: Continue to treat the cellulitis with Clindamyacin to be picked up at the pharmacy and taken with food four times per day x10 days Continue all medications which were stared to preserve your heart See your PCP within one week as a follow up to this hospital stay Expect a call from our [facility]-Pulmonary rehab to ensure you develop a good routine Care Goals: Have a complete recovery of the right elbow cellulitis Continue to have left knee resolution Prevent ED visits, or hospital stays Get routine checkups by your PCP or specialists Start to treat your sleep apnea after your sleep study Complete Pulmonary rehab Assessment: You were admitted for right elbow cellulitis and early sepsis, which improved with IV antibiotics. You had underlying right elbow bursitis caused by trauma, also a risk factor is (male gender). The final diagnosis is complicated bursitis since you had cellulitis as well. Current recommendations are to evaluate 2 sets of blood cultures to ensure the infection stays localized. The first set was negative, I will call you if the 2nd set shows anything. A right elbow MRI was obtained, showing no osteomyelitis, and no abscess, which would require surgical intervention. The MRI did show things we already knew such as extensive subcutaneous edema (swelling), & bursitis. An echocardiogram was done due to the sepsis, and a heart murmur heard on exam. The final conclusion was right sided heart failure due to your longstanding enlarged right heart. You have been on proper medical management including a rate control medication called metoprolol, a gentle diuretic to compliment the lasix called spironolactone, and a low dose lisinopril to preserve your heart. Reglan that you take at home should be stopped, unless the benefit will out weigh the risk, as it can cause the potential of a fatal heart arrhythmia. You developed left knee pain which is thought to be a late sign of your prior fall. Imaging of your left knee showed nothing concerning, just arthritis. Your bowels have been sluggish, and you were given magnesium citrate with r esults. Stay active at home to prevent this, the urinary medications that you take can have some drying effects. We spoke about the blood thinner options and the most preferred way to be anticoagulated is using Xarelto or Eliquis. Eliquis is not an option since your insurance will not cover this at all. We called your pharmacy to discuss what your cost would be, which is $50 per month. I gave you some time to consider this due to the cost. This will eliminate the need for your to get your ProTime or INR blood drawn regularly. After discussion, not getting the labs will be favorable, so Xarelto was prescribed. You had your first dose last evening, so we recommend continuing this each evening to stay on the same schedule. I have included a chart for comparing all the blood thinners for your information. You tolerated the new medications started to preserve your heart very well, which need to continue at home and have been sent to the pharmacy. Follow-Up Care: [facility] - Pulmonary No Smoking: If you smoke, Please STOP! Call for help. Follow-up with: Cindy Garcia PA [Primary Care Provider] -
[2019-09-30] MEDS: TAMSULOSIN 0.4 MG CAPSULE PO SCH (08:37)
[2019-09-30] MEDS: MULTIVITAMIN TABLET PO SCH (08:37)
[2019-09-30] MEDS: FAMOTIDINE 20 MG TABLET PO SCH (08:37)
[2019-09-30] MEDS: SPIRONOLACTONE 25 MG TABLET PO SCH (08:37)
[2019-09-30] MEDS: oxyCODONE 5 MG TABLET PO PRN (08:37)
[2019-09-30] MEDS: OXYBUTYNIN 5MG TABLET PO SCH (08:37)
[2019-09-30] MEDS: lisinopriL 5 MG TABLET PO SCH (08:37)
[2019-09-30] MEDS: MAGNESIUM OXIDE 400 MG TABLET PO SCH ×2 (08:37→17:10)
[2019-09-30] MEDS: PANTOPRAZOLE 40 MG TABLET PO SCH (08:37)
[2019-09-30] MEDS: METOPROLOL SUCCINATE 25 MG TABLET PO SCH ×2 (08:38→17:13)
[2019-09-30] MEDS: FUROSEMIDE 20 MG TABLET PO SCH (08:38)
[2019-09-30] MEDS: polyethylene glycoL 3350 17 GM PACKET PO SCH (08:38)
[2019-09-30] MEDS: LACTULOSE 10 GM /15 ML UDC PO SCH (08:38)
[2019-09-30] MEDS: CLINDAMYCIN 150 MG CAPSULE PO SCH ×2 (11:34→17:10)
[2019-09-30] MEDS ORDERED: RIVAROXABAN 10 MG TABLET PO SCH (17:00)
[2019-09-30 17:07] VITALS: BP 158/86
[2019-09-30] MEDS: RIVAROXABAN 10 MG TABLET PO SCH (17:10)
--- NOTE | 2019-09-30 17:40 | DISCHARGE SUMMARY ---
Discharge Summary Admit Date: 09/26/19 Discharge Date: 09/30/19 Discharging Provider: JASBIR Whitley Primary Care Provider: Cindy Garcia Code Status: Attempt Resuscitation Condition at Discharge: Good Discharge Disposition: 01 Home, Self Care - DIAGNOSES Admission Diagnoses: Sepsis Acute metabolic encephalopathy Hypomagnesemia Cellulitis of right elbow Atrial fibrillation with RVR Fall Essential hypertension Hyperlipidemia Neurogenic bladder GERD (gastroesophageal reflux disease) Restless leg syndrome Insomnia ARMANDO (obstructive sleep apnea) Osteoarthritis Discharge Diagnoses with Status of Each Condition: Sepsis-Present on admission, did not progress to severe sepsis, resolved Acute metabolic encephalopathy-Present on admission, resolved Hypomagnesemia-Chronic, continue magnesium at home Cellulitis of right elbow-Present on admission, stable, continue antibiotics Atrial fibrillation with RVR-Present on admission, resolved, remained in atrial fibrillation at a controlled rate, continue BB at home Cor Pulmonale-Found on echo, stable Chronic systolic right heart failure-Chronic, stable Fall-Chronic, stable Essential hypertension-Chronic, stable Hyperlipidemia-Chronic, stable Neurogenic bladder-Chronic, stable GERD (gastroesophageal reflux disease)-Chronic, stable Restless leg syndrome-Chronic, stable Insomnia-Chronic, stable ARMANDO (obstructive sleep apnea)-Chronic, stable Osteoarthritis-Chronic, stable Acute metabolic encephalopathy-Chronic, stable Left knee pain-Chronic, stable - HPI History of Present Illness: Eddie Abarca (Nadir) is an ill appearing 69-year old white male with a past medical history of hypertension, hyperlipidemia, chronic atrial fibrillation on Warfarin, abnormal cardiac stress test, enlarged RV, laminectomy in 1998 to r epair a herniated disk, staph infection with residual neurogenic bladder, history of home self-caths, recurrent UTIs, erectile dysfunction, chronic insomnia, chronic pain syndrome, osteoarthritis, vitamin D deficiency, costochondritis, ARMANDO without the use of a CPAP, peripheral neuropathy, chronic right sided weakness, right foot drop, ataxia, memory loss, esophageal stricture, GERD, hiatal hernia, BPH with urinary retention, nocturia, abnormal LFTs, narcotic dependence, and 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 The patient was brought in early this morning via private car and his , Sheri for rigors described as more right than left trembling and shaking. The patient states that he woke up from it @ 0300. He went to his PCP, Cindy Garcia yesterday for right elbow pain, and was diagnosed with bursitis. After reviewing the records, he was prescribed prednisone by Cindy Garcia. He states that there was no fluid obtained from the joint, no antibio tics prescribed. The patient notes that he also had nausea with vomiting while at home this morning, but denied fevers, chills, bloody urine, new urinary incontinence, burning with urination, confusion, a new rash (other than his right elbow), diarrhea, weight loss, a recent illness, or any other events similar to this. The patient states that he did fall a few days ago and his right elbow landed on some saw-horses, but the skin remained intact, without bruising. The patient developed a fever up to 101 F while in the ED, was found to be in a fib with RVR heart rates 170s, hypotensive with B/Ps 97/60, on room air, respirations 16-20. Labs showed a normal WBC count, INR 2.7, sodium 130, K+ 3.6, GFR 74, glucose 121, magnesium 1.5 and no other abnormalities. Blood cultures were obtained, urine culture is pending, an indwelling stone was ordered, MUDDs tox screen given the patients narcotic abuse history and AMS. The patient was given IV fluids, IV Rocephin, with little improvement. The patient is admitted for inpatient care for sepsis, right arm cellulitis, with a low tolerance for an orthopedic surgery consult if his right elbow shows no improvement in 24 hours. Orders to obtain admission photos are pending. - HOSPITAL COURSE Hospital Course: The patient was admitted for right elbow cellulitis and early sepsis, which improved with IV antibiotics. The patient had underlying right elbow bursitis caused by trauma, also a risk factor is (male gender). The final diagnosis is complicated bursitis since he had cellulitis as well. Current recommendations are to evaluate 2 sets of blood cultures to ensure the infection stays loc alized. The first set was negative, the 2nd is pending. A right elbow MRI was obtained, showing no osteomyelitis, and no abscess, which would require surgical intervention. The MRI did show things we already knew such as extensive subcutaneous edema (swelling), & bursitis. An echocardiogram was done due to the sepsis, and a heart murmur heard on exam. The final conclusion was right sided heart failure due to your longstanding enlarged right heart. The patient was started on proper medical management including a beta natty, a gentle diuretic to compliment the lasix, spironolactone, and a low dose lisinopril to preserve the ejection fraction of the heart. Reglan that the patient was taking was stopped, as it can cause the potential of a fatal heart arrhythmia. The patient developed left knee pain which is thought to be a late sign of his prior fall. Imaging of the left knee showed nothing concerning, just arthritis. The patient had sluggish bowels, with good results after he was given magnesium citrate. The patient was encouraged to stay active at home to prevent this. We spoke about the blood thinner options and the most preferred way to be anticoagulated is using Xarelto or Eliquis. Eliquis is not an option since his insurance will not cover this at all. We called his pharmacy to discuss what the cost would be, which is $50 per month. I gave the patient and his some time to consider this due to the cost. After discussion, not getting the labs was favorable, so Xarelto was prescribed. He was started on the Xarelto while in the hosptial. - ALLERGIES Allergies/Adverse Reactions: Allergies Allergy/AdvReac Type Severity Reaction Status Date / Time methadone AdvReac sleep apnea Verified 09/26/19 05:11 - MEDICATIONS Home Medications: Ambulatory Orders Medication Instructions Recorded Confirmed Melatonin 10 mg PO QPM 06/18/17 09/26/19 Omeprazole 20 mg PO BIDAC 06/18/17 09/26/19 Trazodone HCl 100 mg PO QPM 06/18/17 09/26/19 Alfuzosin HCl [Alfuzosin HCl ER] 10 mg PO DAILY 09/26/19 09/26/19 Cyclobenzaprine HCl 10 mg PO TID PRN 09/26/19 09/26/19 Famotidine 20 mg PO DAILY 09/26/19 09/26/19 Furosemide [Lasix] 20 mg PO DAILY 09/26/19 09/26/19 Multivitamin [Multivitamins] 1 cap PO DAILY 09/26/19 09/26/19 Oxybutynin Chloride [Ditropan Xl] 10 mg PO DAILY 09/26/19 09/26/19 Pramipexole [Mirapex] 0.25 mg PO DAILY 09/26/19 09/26/19 Rivaroxaban [Xarelto] 20 mg PO DAILY #30 tablet 09/27/19 Acetaminophen [Tylenol] 650 mg PO Q4HR PRN #0 tablet 09/30/19 Clindamycin HCl [Clindamycin 300MG 300 mg PO QID #40 capsule 09/30/19 CAP] Magnesium Oxide [Mag Ox] 400 mg PO BIDWM #60 tablet 09/30/19 Metoprolol Succinate [Toprol Xl] 25 mg PO BIDWM #60 tablet 09/30/19 Spironolactone [Aldactone] 25 mg PO DAILY #30 tablet 09/30/19 lisinopriL [Lisinopril] 2.5 mg PO DAILY #30 tablet 09/30/19 polyethylene glycoL 3350 [Miralax] 17 gm PO DAILY #30 packet 09/30/19 - PHYSICAL EXAM AT DISCHARGE General Appearance: positive: No acute distress, Alert Eyes Bilateral: positive: Normal inspection, PERRL ENT: positive: ENT inspection nml, Pharynx nml Neck: positive: Nml inspection, Thyroid nml, No JVD, Trachea midline Respiratory: positive: Chest non-tender, No respiratory distress, Breath sounds nml Cardiovascular: positive: Regular rate & rhythm, No gallop, Systolic murmur Peripheral Pulses: positive: 2+ Abdomen: positive: Non-tender, Nml bowel sounds, Other (rounded, soft) Back: positive: Nml inspection Skin: positive: Color nml, No rash, Warm, Dry Extremities: positive: No pedal edema, Joint swelling (left knee swelling with out redness, right elbow with only localized swelling, still with edema-reduced) Neurologic/Psychiatric: positive: Oriented x3, CN's nml (2-12), Motor nml, Sensation nml, Mood/affect nml Reflexes: Bicep (R): 2+, Bicep (L): 3+ - LABS Result Diagrams: 09/29/19 05:15 09/29/19 05:15 - SEPSIS Current Stage of Sepsis: Resolved Possible source of Sepsis: Skin/soft tissue - FOLLOW UP Follow Up: See your PCP within one week as a follow up to this hospital stay Expect a call from our [facility] to ensure you develop a good routine, PCP to re-order please. - TIME SPENT Time Spent in Discharge (Minutes): 55
== END 2019-09-30 17:30 | disposition home or self-care (01) | DRG 871 ==
LOC: ED 04:37 → MS2 10:33
PROVIDERS: ADMIT Nurse Practitioner; ATTEND Nurse Practitioner
DX: A41.9 Sepsis, unspecified organism (principal); G93.41 Metabolic encephalopathy; L03.113 Cellulitis of right upper limb; I48.19 Other persistent atrial fibrillation; F11.20 Opioid dependence, uncomplicated; M70.31 Other bursitis of elbow, right elbow; I10 Essential (primary) hypertension; E78.5 Hyperlipidemia, unspecified; N31.9 Neuromuscular dysfunction of bladder, unspecified; K21.9 Gastro-esophageal reflux disease without esophagitis; G25.81 Restless legs syndrome; F51.04 Psychophysiologic insomnia; G47.33 Obstructive sleep apnea (adult) (pediatric); I27.81 Cor pulmonale (chronic); M25.562 Pain in left knee; M17.12 Unilateral primary osteoarthritis, left knee; J43.9 Emphysema, unspecified; G89.4 Chronic pain syndrome; E55.9 Vitamin D deficiency, unspecified; N40.1 Benign prostatic hyperplasia with lower urinary tract symptoms; R33.8 Other retention of urine; R35.1 Nocturia; E86.0 Dehydration; R11.2 Nausea with vomiting, unspecified; I95.9 Hypotension, unspecified; F03.90 Unspecified dementia, unspecified severity, without behavioral disturbance, psychotic disturbance, mood disturbance, and anxiety; M21.371 Foot drop, right foot; R27.0 Ataxia, unspecified; T38.0X6A Underdosing of glucocorticoids and synthetic analogues, initial encounter; Z91.128 Patient's intentional underdosing of medication regimen for other reason; Y92.009 Unspecified place in unspecified non-institutional (private) residence as the place of occurrence of the external cause; G62.9 Polyneuropathy, unspecified; I73.9 Peripheral vascular disease, unspecified; K44.9 Diaphragmatic hernia without obstruction or gangrene; M54.2 Cervicalgia; N32.89 Other specified disorders of bladder; I25.119 Atherosclerotic heart disease of native coronary artery with unspecified angina pectoris; K59.00 Constipation, unspecified; Z87.891 Personal history of nicotine dependence; Z79.899 Other long term (current) drug therapy; Z91.19 Patient's noncompliance with other medical treatment and regimen; Z87.440 Personal history of urinary (tract) infections; Z79.01 Long term (current) use of anticoagulants; Z91.81 History of falling; Z86.19 Personal history of other infectious and parasitic diseases
CPT/HCPCS: 36415; 71045; 73223; 73560; 80048; 80053; 80202; 80306; 81001; 82310; 83605; 83615; 83690; 83735; 84484; 84550; 85025; 85610; 85730; 86140; 87040; 93005; 93306; 96361; 96365; 96368; 96375; 96376; 99285; A9270; A9585; J3370; J7120; 87086

== ENCOUNTER 2020-02-18 10:59 | Outpatient (CLI) | payer BC, MEDICARE ==
--- NOTE | 2020-02-18 11:47 | XRAY Report ---
PROCEDURE: Chest 2 View X-Ray INDICATIONS: Cough TECHNIQUE: 2 view(s) of the chest. COMPARISON: 09/26/2019 FINDINGS: Surgical changes and devices: None. Lungs and pleura: No pleural effusions or pneumothorax. Lungs are clear. Mediastinum: Mediastinal contours are normal. Heart size is normal. Bones and chest wall: No suspicious bony abnormalities. Soft tissues appear unremarkable. IMPRESSION: No acute cardiopulmonary process demonstrated radiographically. Reviewed by: Gurdeep Campbell MD on 02/18/2020 11:46 AM PDT Approved by: Gurdeep Campbell MD on 02/18/2020 11:46 AM PDT Station ID: [id number]
== END 2020-02-18 11:00 | disposition home or self-care (01) ==
LOC: DI.N 10:59
PROVIDERS: ATTEND Physician Assistant Medical
DX: R05 Cough (principal)
CPT/HCPCS: 71046

== ENCOUNTER 2020-05-18 10:01 | Outpatient (CLI) | payer BC, MEDICARE ==
--- NOTE | 2020-05-18 11:14 | SLEEP CARE CONSULTATION ---
Information from patient questionnaire entered by Lorna Najera. I have reviewed and concur with the information entered by Lorna Najera. This document represents the service I personally performed and the decisions made by me, Alicia Bundy ARNP. History of Present Illness Service Date and Time: 05/18/2020 1001 Reason for Visit: New patient, Previously diagnosed sleep apnea (16.6 in 2015) Chief Complaint: reports: Insomnia (hard to get to sleep and wake up frequently), Snoring, Observed pauses in breathing, Frequent awakenings at night. denies: Unrefreshed sleep, Excessive daytime sleepiness, Fatigue, Other Date of Onset: 5 years Usual bedtime: 10:30-11 pm Time it takes to fall asleep: 30-60 minutes Snores at night: Yes Observed to quit breathing while asleep: Yes Sleeps alone due to snoring: Yes Number of times waking at night: 3-4 Reasons for waking at night: reports: Pain, Bathroom, Other (restless legs and spacticity). denies: Choking, Snoring, Gasping for air Toss, Turn, or Twitch while sleeping: Yes Recalls having dreams: Yes Usually gets out of bed at: 9-10 am; wakes up about 3-4 AM and lays in bed until 9-10 Feels refreshed in the morning: Yes (sometimes) Morning headache: No Sleepy or fatigued during the day: Yes Ever fallen asleep while driving: No Takes day naps: No (can't fall asleep if lays down) Dreams during day naps: No Prior sleep studies: Yes Year and Where: [facility] Additional HPI information: I had the pleasure of seeing VIOLETA HASKINS today regarding the possibility of him having a sleep disorder. He is accompanied by his daughter today. His current complaints are insomnia, snoring, observed pauses in breathing, and frequent awakenings at night. He does have a previous diagnosis of ARMANDO on CPAP but has not been using it for over a year ago. He stopped using it because he felt he slept better without it and just did not feel it was comfortable. He may not have used it for more than a month before stopping treatment but he is not really clear on this. He states he did communicate with his previous sleep doctor's office but did not have a lot of followup, then he states he had them stop calling him after he stopped using the CPAP machine. He does have hypertension, atrial fibrillation, COPD and acid reflux. - Parasomnia Symptoms Ever been unable to move upon waking from sleep: No Walks in sleep: No Talks in sleep: No Ever acted out dreams in sleep: No Ever felt weak in the knees when startled or emotional: No Bothered by creepy, crawly, restless sensations in legs: Yes Problems with memory or concentration: Yes Subjective Initial [place] Sleepiness Scale score: 0 (in 2019) Past Medical History Past Medical History: reports: Hypertension, Arrythmia (atrial fibrillation), GERD, Other (hiatal hernia). denies: Congestive Heart Failure, Diabetes, Stroke, Coronary Heart Disease, Hypothyroidism, Anemia, Anxiety, Impotence, Depression, Mood disorder, Attention deficit Social History The patient's occupation is a Retired. Patient is and lives in [place]. Have you smoked in the past 12 months: No Cigarettes per day (20/pack): 40 Years of smokin Quit date: 1989 Smoking Pack Years: 44.0 Alcohol use: Yes Alcohol amount and frequency: 2-3 beers 2-3 times a week Caffeine use: Yes Caffeine amount and frequency: 4 cups a day Family History Family history of sleep disordered breathing: No Allergies and Home Medications Drug allergies reviewed: Yes (methadone) Home medication list reviewed: Yes Allergy and home medication list: multivitamin omeprazole 20 mg bid famotidine 20 mg daily alfuzosin 10 mg daily furosemide 20 mg daily oxybutynin 10 mg daily metoclopromide 5 mg 3 times a day pramipexole 0.125 mg bid trazadone 100 mg daily xarelto 20 mg daily spirolactone 25 mg daily metoprolol 50 mg bid melatonin 10 mg nightly cyclobenzaprine, prn Review of Systems Cardiovascular: reports: high blood pressure, irregular heart rate or pulse, leg or foot swelling. denies: palpitations, chest pain Respiratory: reports: chronic cough. denies: shortness of breath Gastrointestinal: reports: heartburn, difficulty swallowing Urinary: reports: incontinence, frequency, urgency Neurological: reports: gait or balance problems. denies: headaches, seizure, head trauma, speech dysfunction Psychiatric: denies: Attention Deficit Hyperactivity, anxiety, depression, mood disorder, claustrophobia Ear/Nose/Throat: reports: dry mouth/throat (dry mouth nightly, contributes to waking up), wisdom teeth removed. denies: nasal congestion, sinus problems, nose bleeds, injury to nose, tonsillectomy Endocrine: reports: increased urination. denies: thyroid disease Musculoskeletal: reports: neck pain, back pain, muscle pain or cramping, mobility problems Immunologic: reports: sneezing. denies: allergies to food or environment Physical Exam Blood Pressure: 112/81 Cuff size: wrist Heart Rate: 59 O2 Saturation: 96 Height: 5 ft 11 in Weight: 199 lb Body Mass Index: 27.7 BMI Classification: Overweight Neck circumference: 17.5 (inches) HEENT: No craniofacial malformation Nostrils: patent to airflow Turbinates: normal Septum: midline Mouth and throat: narrow oropharynx Soft palate: normal Hard palate: normal Uvula: normal Uvula visualization: 100% Mallampati Class I Tongue: enlarged in size with teeth stevens on lateral edges Tonsils: 2+ Chin and jaw: normal size and position Neck: normal w/o lymphadenopathy or thyromegaly Heart: irregular rhythm Lungs: clear bilaterally Impression and Plan 1. Suspected Obstructive Sleep Apnea-Hypopnea Syndrome, as previously diagnosed. He has not been using the CPAP therapy as prescribed by his last physician. He is here to re-establish care and will need to have another study to verify his diagnosis and severity. He continues to have irregular snoring, observed cessation of breath while asleep, frequent awakening during the night, insomnia and cognitive impairment. I reviewed with patient that a narrow oropharynx and obesity are common predisposing factors for obstructive sleep apnea-hypopnea syndrome. I recommend proceeding to polysomnography to confirm the diagnosis and to assess severity. If the patient has significant sleep disordered breathing, a manual CPAP titration study will also be performed to find the optimal treatment pressure. I informed the patient of what the sleep studies involve and after some discussion, obtained agreement to proceed. The pathophysiology of obstructive sleep apnea-hypopnea syndrome was discussed with the patient and health risks of cardiovascular and cerebrovascular disease if not treated. AASM brochure for obstructive sleep apnea-hypopnea syndrome given and reviewed. Risks of drowsy driving discussed in detail and patient advised to avoid long distance driving and to puller out at the first sign of drowsiness. Patient agreed to plan. * Schedule polysomnography +- manual CPAP titration study. * Avoid long distance driving or driving when feeling sleepy. * Avoid alcohol, sedative and muscle relaxant around bedtime. * Attempt to lose weight. * Review instructions provided by trained office staff on how to prepare for the sleep study. * Return for follow-up after sleep study completed. Counseling Topics: Weight loss health impact, Activity level Time Spent with Patient (minutes): 40
[2020-05-18 11:15] VITALS: BP 112/81
== END 2020-05-18 10:02 | disposition home or self-care (01) ==
LOC: SC 10:01
PROVIDERS: ATTEND Nurse Practitioner Family
DX: G47.8 Other sleep disorders (principal); R06.83 Snoring; R06.81 Apnea, not elsewhere classified; I48.91 Unspecified atrial fibrillation; E66.3 Overweight; Z68.27 Body mass index [BMI] 27.0-27.9, adult
CPT/HCPCS: 99203; 99212

== ENCOUNTER 2020-08-15 14:20 | Outpatient (CLI) | payer BC, MEDICARE ==
--- NOTE | 2020-08-15 16:22 | CT Report ---
PROCEDURE: HEAD WO INDICATIONS: MEMORY LOSS TECHNIQUE: Noncontrast 4.5 mm thick angled axial sections acquired from the foramen magnum to the vertex. For r adiation dose reduction, the following was used: automated exposure control, adjustment of mA and/or kV according to patient size. COMPARISON: 10/15/2017 FINDINGS: Image quality: Excellent. CSF spaces: Basal cisterns are patent. No extra-axial fluid collections. The ventricles are symmet aneta in size and shape. Brain: No intracranial bleeds or masses. There is cerebral volume loss for age, with resultant vent ricular and sulcal prominence. There are periventricular and deep white matter chronic small vessel ischemic changes. There is intracranial internal carotid artery and vertebral artery atherosclerosis . Skull and face: Calvarium and visualized facial bones appear intact, without suspicious lesions. Sinuses: Visualized sinuses and mastoids are clear. IMPRESSION: No acute intracranial disease process. Reviewed by: Re Waldrop MD, PhD on 08/15/2020 4:21 PM PST Approved by: Re Waldrop MD, PhD on 08/15/2020 4:21 PM PST Station ID: [id number]
--- NOTE | 2020-08-15 20:32 | Ultrasound Report ---
PROCEDURE: Carotid Doppler Complete INDICATIONS: MEMORY LOSS TECHNIQUE: Color and pulse Doppler interrogation was performed of both carotid systems, with image documentation and velocity measurements. COMPARISON: None. FINDINGS: Right side: Common carotid artery peak systolic velocity: 85 cm/sec. Internal carotid artery peak systolic velocity: 59 cm/sec. Internal carotid artery end diastolic velocity: 24 cm/sec. External carotid artery peak systolic velocity: 59 cm/sec. ICA/CCA peak systolic ratio: 0.69 . Land scale imaging description: Scattered atherosclerotic calcifications at the carotid bulb and lamin gin of the right internal carotid artery with less than 50% narrowing of the lumen. Percent internal carotid artery stenosis: Less than 50% stenosis . Vertebral artery: Flow direction is antegrade. Left side: Common carotid artery peak systolic velocity: 71 cm/sec. Internal carotid artery peak systolic velocity: 56 cm/sec. Internal carotid artery end diastolic velocity: 25 cm/sec. External carotid artery peak systolic velocity: 46 cm/sec. ICA/CCA peak systolic ratio: 0.79 . Land scale imaging description: Scattered atherosclerotic calcifications at the origin of the left i nternal carotid artery. Less than 50% stenosis of the lumen. Percent internal carotid artery stenosis: Less than 50% stenosis . Vertebral artery: Flow direction is antegrade. IMPRESSION: Proximal internal carotid atherosclerosis with less than 50% stenosis bilaterally. The estimate of stenosis included in the report of the imaging study was calculated using the NASCET method Reviewed by: Case Carter MD on 08/15/2020 7:31 PM [place] Approved by: Case Carter MD on 08/15/2020 7:31 PM [place] Station ID: [id number]
== END 2020-08-15 14:21 | disposition home or self-care (01) ==
LOC: DI 14:20
PROVIDERS: ATTEND Physician Assistant Medical
DX: R41.3 Other amnesia (principal); I65.23 Occlusion and stenosis of bilateral carotid arteries
CPT/HCPCS: 70450; 93880

== ENCOUNTER 2020-10-28 12:08 | Outpatient (CLI) | payer BC, MEDICARE ==
--- NOTE | 2020-10-28 12:58 | XRAY Report ---
PROCEDURE: Ribs w/PA Chest LT INDICATIONS: LEFT RIB PAIN TECHNIQUE: 2 views of the right ribs were acquired, along with a single view chest. COMPARISON: Prior chest plain film 09/26/2019 FINDINGS: Surgical changes and devices: None. Bones and chest wall: No fractures or dislocations. No suspicious bony lesions. Overlying soft tis sues appear unremarkable. Lungs and pleura: No pleural effusions or pneumothorax. Lungs appear clear. Mediastinum: Mediastinal contours appear normal. Heart size is normal. IMPRESSION: No rib fracture found, no pneumothorax seen. The area of surface marker placed indicating the site of maximal tenderness is low in position, superimposed on the upper abdomen in the area of the right up per quadrant laterally, and for this reason quality of visualization of the ribs is very limited area . Delayed plain films or nuclear medicine bone scan can improve accuracy of detection of nondisplaced rib fractures. Reviewed by: Walker Saenz MD on 10/28/2020 12:56 PM PDT Approved by: Walker Saenz MD on 10/28/2020 12:56 PM PDT Station ID: [id number]
== END 2020-10-28 12:09 | disposition home or self-care (01) ==
LOC: DI.N 12:08
PROVIDERS: ATTEND Physician Assistant Medical
DX: R07.81 Pleurodynia (principal)

== ENCOUNTER 2021-01-05 08:00 | Outpatient (CLI) | payer BC, MEDICARE | END 2021-01-05 23:59 | disposition home or self-care (01) | LOC: LAB.N 08:00 | PROVIDERS: ATTEND Family Medicine | DX: R30.0 Dysuria (principal) | CPT/HCPCS: 87086 ==

== ENCOUNTER 2021-05-29 16:21 | Emergency (ER) | payer BC, MEDICARE ==
[2021-05-29] MEDS ORDERED: IOVERSOL 320 100 ML VIAL IVP ONE ×2 (16:22→16:50)
--- NOTE | 2021-05-29 16:39 | ED Physician Documentation ---
PD HPI HEADACHE - Stated complaint Stated Complaint: VISION BLURRY,CONFUSSION - History obtained from History obtained from: Patient - Additional information Additional information: 70-year-old gentleman with history of A. fib on a DOAC presents with memory loss starting around 3 PM today. He states that he just cannot remember simple things. He has had an on and off mild headache at the vertex ever since. Currently no pain. Also has some blurry vision with this. No history of stroke or TIA. Review of Systems Ten Systems: 10 systems reviewed and negative Constitutional: reports: Reviewed and negative Eyes: reports: Reviewed and negative Ears: reports: Reviewed and negative Nose: reports: Reviewed and negative Throat: reports: Reviewed and negative Cardiac: reports: Reviewed and negative PD PAST MEDICAL HISTORY - Past Medical History Cardiovascular: Hypertension, High cholesterol, Coronary artery disease, Peripheral Vascular Disease, Atrial fibrillation, Murmur, Arrhythmia Respiratory: COPD, Sleep apnea Neuro: Dementia, Headaches, Peripheral neuropathy Endocrine/Autoimmune: None GI: GERD, Hiatal hernia, Other : Benign prostate hypertrophy, Retention, Nocturia, Frequency HEENT: Chronic vision loss, Chronic sinusitis, Chronic hearing loss Psych: None Musculoskeletal: Chronic back pain Derm: None - Past Surgical History Past Surgical History: Yes General: Colonoscopy, EGD Ortho: Spine surgery Cardiovascular: Other (cardiac stress test-abnormal per patient) - Present Medications Home Medications: Ambulatory Orders Medication Instructions Recorded Confirmed Melatonin 10 mg PO QPM 06/18/17 05/29/21 Omeprazole 20 mg PO BIDAC 06/18/17 05/29/21 Trazodone HCl 100 mg PO QPM 06/18/17 05/29/21 Alfuzosin HCl [Alfuzosin HCl ER] 10 mg PO DAILY 09/26/19 05/29/21 Cyclobenzaprine HCl 10 mg PO TID PRN 09/26/19 05/29/21 Famotidine 20 mg PO DAILY 09/26/19 05/29/21 Furosemide [Lasix] 20 mg PO DAILY 09/26/19 05/29/21 Multivitamin [Multivitamins] 1 cap PO DAILY 09/26/19 05/29/21 Oxybutynin Chloride [Ditropan Xl] 10 mg PO DAILY 09/26/19 05/29/21 Pramipexole [Mirapex] 0.25 mg PO DAILY 09/26/19 05/29/21 Rivaroxaban [Xarelto] 20 mg PO DAILY #30 tablet 09/27/19 05/29/21 Acetaminophen [Tylenol] 650 mg PO Q4HR PRN #0 tablet 09/30/19 05/29/21 Spironolactone [Aldactone] 25 mg PO DAILY #30 tablet 09/30/19 05/29/21 Diclofenac Sodium [Voltaren] 2 gm TP Q8H PRN #1 gel..gram. 01/15/20 05/29/21 Metoprolol Succinate [Toprol Xl] 50 mg PO BIDWM 01/15/20 05/29/21 Losartan Potassium 12.5 mg PO DAILY 05/29/21 05/29/21 Magnesium Oxide [Mag Ox] 400 mg PO DAILY 05/29/21 05/29/21 polyethylene glycoL 3350 [Miralax] 17 gm PO DAILY PRN 05/29/21 05/29/21 - Allergies Allergies/Adverse Reactions: Allergies Allergy/AdvReac Type Severity Reaction Status Date / Time methadone AdvReac sleep apnea Verified 05/29/21 16:38 - Social History Does the pt smoke?: No Smoking Status: Never smoker Does the pt drink ETOH?: Yes Does the pt have substance abuse?: No - Immunizations Immunizations are current?: Yes - POLST Patient has POLST: No POLST Status: Full Code PD ED PE NORMAL - Vitals Vital signs reviewed: Yes - General General: Alert and oriented X 3, Other (He is alert and oriented to person and place, thinks the month is April, and after struggling with it gets the year right. He is able to state his address. He knows his age. He remembers the events of earlier in the day.) - HEENT HEENT: PERRL, EOMI - Neck Neck: Supple, no meningeal sign, No bony TTP - Cardiac Cardiac: Other (Irregularly irregular) - Respiratory Respiratory: No respiratory distress, Clear bilaterally - Abdomen Abdomen: Soft, Non tender - Back Back: No CVA TTP, No spinal TTP - Derm Derm: Normal color, Warm and dry - Extremities Extremities: No edema, No calf tenderness / cord - Neuro Neuro: magnetizer 2-12 intact, No motor deficit, No sensory deficit, Normal speech, Other (NIH stroke scale of 1 for missing the month) Eye Opening: Spontaneous Motor: Obeys Commands Results - Vitals Vitals: Vital Signs - 24 hr 05/29/21 05/29/21 05/29/21 16:35 16:43 17:13 Temperature 36.6 C Heart Rate 81 67 74 Respiratory 17 12 16 Rate Blood Pressure 131/83 H 118/93 H 109/81 H O2 Saturation 99 98 97 05/29/21 05/29/21 05/29/21 17:48 18:16 18:30 Temperature 36.5 C 36.4 C L Heart Rate 74 69 86 Respiratory 14 14 12 Rate Blood Pressure 130/79 107/85 H 127/74 O2 Saturation 96 99 98 Oxygen O2 Source Room air - EKG (time done) 1646 Rate: Rate (enter#) (66) Rhythm: Atrial fibrillation [place]: Normal QRS: Low voltage Ischemia: Non specific changes. No: ST elevation c/w ischemia, ST depression - Labs Labs: Laboratory Tests 05/29/21 05/29/21 16:37 16:40 WBC 6.0 RBC 4.14 L Hgb 13.4 L Hct 37.8 L MCV 91.3 MCH 32.4 H MCHC 35.4 RDW 12.1 Plt Count 240 MPV 9.4 Neut # (Auto) 3.4 Lymph # (Auto) 1.9 [place] # (Auto) 0.5 Eos # (Auto) 0.1 Baso # (Auto) 0.0 Absolute Nucleated RBC 0.00 Nucleated RBC % 0.0 Sodium 125 L Potassium 4.0 Chloride 91 L Carbon Dioxide 25 Anion Gap 9.0 BUN 19 Creatinine 1.6 H Estimated GFR (MDRD) 43 L Glucose 123 H Calcium 8.6 - Rads (name of study) Angiography of the head and neck demonstrates mild bilateral carotid atherosclerosis without other focal or concerning findings. Radiology: Final report received, See rad report PD MEDICAL DECISION MAKING - ED course ED course: This is a 70-year-old gentleman who presents with a syndrome most consistent with transient global amnesia. During the course of his ED stay his memory returned to normal, he was remain able to remember the events earlier in the day as well as the month. Offered to place him in observation for observation and further work-up such as MRI in the morning, after discussion he and the declined and the will watch him at home. Departure - Departure Disposition: Home, Self Care Condition: Good Record reviewed to determine appropriate education?: Yes Instructions: ED Transient Ischemic Attack Comments: As discussed, it seems today that you likely had an episode of transient global amnesia which is a not common but not rare episode where you have trouble with memory, generally lasting a day or so. Follow-up with Regina Reilly for further evaluation and treatment. Return if worsening. Do not drive tonight.
[2021-05-29 16:46] LABS: BASOPHILS % (AUTO) 0.7 %; EOSINOPHILS # (AUTO) 0.1 10^3/uL (0.0-0.7); EOSINOPHILS % (AUTO) 1.7 %; HCT - HEMATOCRIT 37.8 % (42.0-52.0); HGB - HEMOGLOBIN 13.4 g/dL (14.0-18.0); LYMPHOCYTES # (AUTO) 1.9 10^3/uL (1.5-3.5); LYMPHOCYTES % (AUTO) 32.1 %; MEAN CORPUSCULAR HEMOGLOBIN 32.4 pg (27.0-31.0); MEAN CORPUSCULAR HGB CONC 35.4 g/dL (32.0-36.0); MEAN CORPUSCULAR VOLUME 91.3 fL (80.0-94.0); MEAN PLATELET VOLUME 9.4 fL (7.4-11.4); MONOCYTES # (AUTO) 0.5 10^3/uL (0.0-1.0); NEUTROPHILS # (AUTO) 3.4 10^3/uL (1.5-6.6); NEUTROPHILS % (AUTO) 56.2 %; PLT - PLATELET COUNT 240 10^3/uL (130-450); RED BLOOD COUNT 4.14 10^6/uL (4.70-6.10); RED CELL DISTRIBUTION WIDTH 12.1 % (12.0-15.0)
[2021-05-29 16:54] LABS: CALCIUM 8.6 mg/dL (8.5-10.3); CREATININE 1.6 mg/dL (0.6-1.2)
--- NOTE | 2021-05-29 18:38 | CT Report ---
PROCEDURE: ANGIO HEAD W/WO INDICATIONS: stroke like symptoms CONTRAST: IV CONTRAST: Optiray 320 ml: 80 PO CONTRAST: *NO PO CONTRAST TECHNIQUE: Precontrast 4.5 mm thick angled axial sections acquired from the foramen magnum to the vertex. Afte r the administration of intravenous contrast, 1 mm thick sections acquired through the [place] of [place] is. Postcontrast 4.5 mm thick sections then re-acquired from the foramen magnum to the vertex. 3-di mensional atbgtbw-zoiqtoqyy-tzujiwxqxd (MIP) and/or volume rendering reformats were acquired of the c entral intracranial vasculature. For radiation dose reduction, the following was used: automated ex posure control, adjustment of mA and/or kV according to patient size. COMPARISON: None. FINDINGS: Image quality: Excellent. Anterior circulation: Intracranial internal carotid arteries are normal in size and flow. Short sing le A2 segment with distal bifurcation, the flow within the paired anterior cerebral arteries distally is normal and symmetric. The flow within the middle cerebral arteries is normal and symmetric. The anterior communicating artery is seen. No aneurysms are seen. Posterior circulation: Visualized portions of the vertebral arteries demonstrate normal caliber, and join to form a normal appearing basilar artery. Flow within the posterior cerebral arteries is norm al and symmetric. No aneurysms are seen. CSF spaces: Ventricles are normal in size and shape. Basal cisterns are patent. No extra-axial flu id collections. Brain: No midline shift. No intracranial bleeds or masses. Land-white matter interface appears int act. There is prominent anterior falx calcification. Skull and face: Calvarium and facial bones appear intact, without suspicious lesions. Sinuses: Visualized sinuses and mastoids are clear. IMPRESSION: No focal intracranial stenosis or occlusion. No acute intracranial process. Reviewed by: Aramis Renner MD on 05/29/2021 6:36 PM PDT Approved by: Aramis Renner MD on 05/29/2021 6:36 PM PDT Station ID: [id number]
[2021-05-29] MEDS: HYDROcod/ACETAM 5/325 MG TABLET PO STA (18:39)
[2021-05-29 18:40] VITALS: BP 127/74
--- NOTE | 2021-05-29 18:42 | CT Report ---
PROCEDURE: ANGIO NECK W INDICATIONS: stroke like symptoms CONTRAST: IV CONTRAST: Optiray 320 ml: 80 PO CONTRAST: *NO PO CONTRAST TECHNIQUE: After the administration of intravenous contrast, 1.5 mm axial sections acquired from the aortic arch to the [place] of [place]. Coronal 3-D maximum intensity projection (MIP) and/or volume rendering ref ormats were then performed. For radiation dose reduction, the following was used: automated exposur e control, adjustment of mA and/or kV according to patient size. COMPARISON: None. FINDINGS: Image quality: Excellent. Carotid system: The great vessels demonstrate a conventional anatomy as they arise from the aortic a rc. The origins of the common carotid arteries appear patent. The common carotid arteries demonstr ate normal calibers and courses. The bifurcation regions appear normal bilaterally. The internal ca rotid arteries demonstrate normal caliber and course. Posterior circulation: The origins of the vertebral arteries appear patent. The more superior porti ons of the vertebral arteries demonstrate normal course and caliber. They join to form a normal appe aring basilar artery. Soft tissues: Visualized neck soft tissues demonstrate no suspicious abnormalities. The thyroid is normal in size and there are no incidental findings. Bones: No suspicious bony lesions. Visualized cervical spine appears normally aligned. IMPRESSION: Mild bilateral carotid atherosclerosis. No hemodynamically significant ICA stenosis. The estimate of stenosis included in the report of the imaging study was calculated using the NASCET method CLINICAL RECOMMENDATION STATEMENTS: In patients <35 years with an ITN detected on CT, MRI, or extrathyroidal ultrasound, the Committee re commends further evaluation with dedicated thyroid ultrasound if the nodule is "e1 cm and has no susp icious imaging features, and if the patient has normal life expectancy. In patients "e35 years with an ITN detected on CT, MRI, or extrathyroidal ultrasound, the Committee r ecommends further evaluation with dedicated thyroid ultrasound if the nodule is "e1.5 cm and has no s uspicious imaging features, and if the patient has normal life expectancy. (ACR, 2014) Reviewed by: Aramis Eddy MD on 05/29/2021 6:40 PM PDT Approved by: Aramis Eddy MD on 05/29/2021 6:40 PM PDT Station ID: [id number]
[2021-05-29] MEDS: IOVERSOL 320 100 ML VIAL IVP ONE (20:01)
== END 2021-05-29 19:07 | disposition home or self-care (01) ==
LOC: ED 16:21
DX: G45.4 Transient global amnesia (principal); I10 Essential (primary) hypertension; I48.91 Unspecified atrial fibrillation; Z79.01 Long term (current) use of anticoagulants
CPT/HCPCS: 36415; 70496; 70498; 80048; 85025; 93005; 99283; 99284; A9270; Q9967

== ENCOUNTER 2021-10-26 08:40 | Outpatient (CLI) | payer BC, MEDICARE ==
--- NOTE | 2021-10-26 10:45 | CARDIAC PROCEDURE NOTE ---
Stress Test Report Service Date: 10/26/21 Service Time: 09:00 Ordering Provider: Patrick Pendleton Indication for Test: Assess precordial chest pain. Significant Medical History: Eddie reports a history of hypertension treated for many years and diagnosis of atrial fibrillation 3 to 5 years ago, for which he remains on Xarelto and twice daily metoprolol. He is referred for stress imaging today, to assess the implication of intermittent episodes of upper chest pressure that have been present for several months, perhaps nearly 1 year. The episodes have never been exertional in occurrence and are not associated with diaphoresis or increased work of breathing. Symptoms come on at rest and typically last 1 to 2 hours in duration, without a discernible pattern. The discomfort is not such that he has sought any interventions to relieve it. Episodes are occurring about twice a month. Perhaps the discomfort becomes less noticeable if he becomes active with symptom onset. He notes that on one occasion he felt his chest wall was a lit tle bit tender in conjunction with the discomfort. He has a history of lower back issues post surgery and typically walks with a cane to stabilize his balance. He is modestly active at home, walking around the neighborhood a few times a week and sometimes pushing a powered lawnmower. He does not believe he has had any loss in stamina recently. Cardiac Risk Factors: Positive for history of hypertension and hyperlipidemia; negative for diabetes, known family history of coronary artery disease and significant smoking history (quit 30 yrs ago). Type of Stress Test: ETT with Myocardial Perfusion Imaging Procedure: -Exercise Treadmill Test- After signing informed consent, the patient underwent rest SPECT imaging and then performed treadmill exercise using a Modified Francesco protocol. The patient exercised for 9 minutes 22 seconds and achieved a peak heart rate of 174 (117 percent predicted maximum heart rate for age), and an estimated workload of 5.1 METS. The test was terminated due to shortness of breath and decreasing blood pressure. Resting heart rate: 88 Peak heart rate: 174 Normal response to exercise in patient with atrial fibrillation off metoprolol 24 hours prior to the test. Resting BP: 137/95 Peak BP: 147/102 Borderline hypertensive at rest with physiologic increase in stages 1 & 2 (to 147/102) with abnormal BP decrease in stage 3 (96-135/63-75). Rhythm during exercise: Atrial fibrillation throughout, with occasional aberrantly conducted versus premature ventricular complexes. Symptoms: Shortness of breath with walking was approaching being limiting; no description of any chest discomfort. EKG at rest showed atrial fibrillation, low limb lead and precordial QRS voltages, with minor ST segment "scooping" abnormality in some leads (especially inferior and lateral). EKG at peak stress showed ST depression of nearly 1.0 mm, but in leads with resting abnormality, thus reducing specificity for ischemia. ST segments returned to resting baseline early in Recovery. Nuclear imaging performed at rest and with stress and will be reported separately. IDylan MD, was present throughout this treadmill stress study and supervised it in its entirety. Summary: 1) Above average exercise tolerance for age as evidenced by TANK of -34.7%. 2) Abnormal resting EKG. 3) Adequate level of exercise was achieved on this treadmill stress test. 4) Abnormal BP response to exercise. 5) Borderline ischemic changes by EKG criteria were seen at peak stress. 6) Analysis of gated nuclear images reveals normal left ventricular size and systolic function; SPECT analysis reveals a small fixed anteroseptal defect (smaller than on prior study in 2016 and likely an attenuation artifact) with normal perfusion of the left ventricle otherwise at rest and following treadmill stress, thus no evidence of inducible ischemia. See separate report for more detail. CONCLUSIONS: 1) No chest discomfort reported with exercise, with equivocal EKG response. 2) Abnormal decrease in BP in stage 3, along with dyspnea, prompting test conclusion. 3) Small fixed anteroseptal defect, likely attenuation artifact, without SPECT evidence of inducible ischemia.
--- NOTE | 2021-10-26 13:56 | Nuclear Medicine Report ---
PROCEDURE: Rest and exercise myocardial perfusion SPECT with gated imaging and ejection fraction INDICATIONS: A FIB / JOCELYN RADIOPHARMACEUTICAL: 13.7 mCi Tc-99m Myoview IV at rest and 34.7 mCi Tc-99m Myoview IV at peak exerc ise. Oje-tkw-epebient was performed. TECHNIQUE: Radiopharmaceutical was injected at peak stress test, and also at rest. SPECT images wer e obtained. SPECT myocardial perfusion images were displayed in short axis, horizontal long axis, an d vertical long axis views. Gated images were reviewed using Auto[employer] software. COMPARISON: Myocardial perfusion scan, 04/18/2017. FINDINGS: Raw data: There is good myocardial labeling by radiotracer. No significant motion artifacts. Lung- to-heart ratio is 0.42 (normal is less than 0.46 for tetrafosmin tracer). Left ventricle function: Gated images demonstrate normal left ventricle wall thickening. No segment al wall motion abnormality. No transient ischemic dilation; TID is 0.94 (normal less than 1.30). Th e left ventricle resting end-diastolic volume is 58 mL. Left ventricle stress ejection fraction is 7 7%; normal values are above 45%. Myocardial perfusion: Small fixed anteroseptal defect seen on the last examination is less prominent , likely caused by attenuation artifact. There is otherwise normal distribution of activity in the le ft and right ventricular myocardium. No reversible perfusion defects to suggest myocardial ischemia. IMPRESSION: 1. Normal myocardial perfusion images. No perfusion defect to suggest myocardial ischemia or infarct. 2. Normal left ventricular volume and systolic function. 3. Please correlate with stress EKG result. PQRS ATTESTATIONS: Measure 322 - Is this imaging test primarily performed on a low-risk surgery patient for preoperative evaluation within 30 days preceding their low-risk non-cardiac surgery? Low-risk surgery is defined as cardiac or myocardial infarction less than 1%, including (but not limited to) endoscopic pr ocedures, superficial procedures, cataract surgery, and excisional breast surgery: Answer: No Measure 323 - Is this imaging test performed primarily for the monitoring of an asymptomatic patient who had percutaneous coronary intervention on the visit date or within 2 years of the visit date? An swer: No Measure 324 - Is this imaging test performed primarily for the initial detection and risk assessment on an asymptomatic, low coronary heart disease patient? Low CHD risk definition = clinicians should consider the maximum number of available patient factors used to estimate risk based on [place] (A TP III criteria), typically age, gender, diabetes, smoking status, and use of blood pressure medicati on, and integrate age appropriate estimates for missing elements, such as LDL or standard blood press ure. Answer: No Reviewed by: Mannie Figueroa MD on 10/26/2021 1:55 PM PDT Approved by: Mannie Figueroa MD on 10/26/2021 1:55 PM PDT Station ID: [id number]
== END 2021-10-26 08:41 | disposition home or self-care (01) ==
LOC: DI 08:40
PROVIDERS: ATTEND Internal Medicine Cardiovascular Disease
DX: R07.2 Precordial pain (principal); I48.91 Unspecified atrial fibrillation; Z79.01 Long term (current) use of anticoagulants; I10 Essential (primary) hypertension; R94.31 Abnormal electrocardiogram [ECG] [EKG]
CPT/HCPCS: 78452; 93016; 93017; 93018; A9500

== ENCOUNTER 2022-06-13 09:00 | Outpatient (CLI) | payer BC, MEDICARE ==
--- NOTE | 2022-06-13 16:25 | Mammography Report ---
MALE BILATERAL DIGITAL DIAGNOSTIC MAMMOGRAM 3D/2D: 06/13/2022 CLINICAL: Baseline exam.Patient has focal pain x2-3 months. lump palpated by referring physician. No prior exams were available for comparison. There is gynecomastia in both breasts. No significant masses, calcifications, or other findings are seen in either breast. Bilateral gyneco mastia. IMPRESSION: BENIGN Bilateral gynecomastia. Clinical followup and evaluation are recommended. This exam was interpreted at Station ID: [id number]. NOTE: For mammograms, a report in lay terms will be sent to the patient. Approximately 15% of breast malignancies will not be visualized mammographically. In the management of a palpable breast mass, a negative mammogram must not discourage biopsy of a clinically suspicious lesion. Electronically Signed By: Ajay Villalobos M.D. lc/:06/13/2022 10:09:16 ACR BI-RADS Category 2: Benign Finding(s) 3342F PARENCHYMAL PATTERN: (F) - The breast(s) demonstrate(s) diffuse fatty replacement. BI-RADS CATEGORY: (2) - 2 Unspecified - other recall n/a LATERALITY: (B)
== END 2022-06-13 09:01 | disposition home or self-care (01) ==
LOC: DI 09:00
PROVIDERS: ATTEND Physician Assistant Medical
DX: N64.4 Mastodynia (principal); N62 Hypertrophy of breast

== ENCOUNTER 2022-06-15 10:13 | Outpatient (CLI) | payer BC, MEDICARE ==
[2022-06-15 18:43] LABS: ALBUMIN 3.8 g/dL (3.2-5.5); ALKALINE PHOSPHATASE 78 IU/L (42-121); ALT ALANINE AMINOTRANSFERASE 16 IU/L (10-60); AST ASPARTATE AMINOTRANSFERASE 19 IU/L (10-42); BILIRUBIN,TOTAL 0.8 mg/dL (0.2-1.0); BUN - BLOOD UREA NITROGEN 14 mg/dL (6-20); CALCIUM 9.2 mg/dL (8.5-10.3); CARBON DIOXIDE - CO2 27 mmol/L (21-32); CHLORIDE 99 mmol/L (101-111); CHOL/HDL RATIO 2.7 (<5.0); CHOLESTEROL 147 mg/dL; GFR - MDRD 73 (>89); GLUCOSE 110 mg/dL (70-100); HDL CHOLESTEROL 54 mg/dL; LDL CHOLESTEROL,CALCULATED 78 mg/dL; LDL/HDL RATIO 1.4 (<3.6); POTASSIUM 4.2 mmol/L (3.5-5.0); SODIUM 135 mmol/L (135-145); TOTAL PROTEIN 7.7 g/dL (6.7-8.2); TRIGLYCERIDES 73 mg/dL; VLDL CHOLESTEROL 15 mg/dL
== END 2022-06-15 10:14 | disposition home or self-care (01) ==
LOC: LAB.N 10:13
PROVIDERS: ATTEND Physician Assistant Medical
DX: E78.5 Hyperlipidemia, unspecified (principal)
CPT/HCPCS: 36415; 80053; 80061; 83721

== ENCOUNTER 2022-08-21 22:47 | Emergency (ER) | payer BC, MEDICARE ==
[2022-08-21 23:44] LABS: BASOPHILS % (AUTO) 0.5 %; EOSINOPHILS % (AUTO) 0.5 %; HCT - HEMATOCRIT 37.6 % (42.0-52.0); HGB - HEMOGLOBIN 12.7 g/dL (14.0-18.0); LYMPHOCYTES # (AUTO) 1.2 10^3/uL (1.5-3.5); LYMPHOCYTES % (AUTO) 20.4 %; MEAN CORPUSCULAR HGB CONC 33.8 g/dL (32.0-36.0); MEAN CORPUSCULAR VOLUME 91.7 fL (80.0-94.0); MEAN PLATELET VOLUME 9.5 fL (7.4-11.4); MONOCYTES # (AUTO) 0.8 10^3/uL (0.0-1.0); MONOCYTES % (AUTO) 13.2 %; NEUTROPHILS # (AUTO) 3.7 10^3/uL (1.5-6.6); NEUTROPHILS % (AUTO) 65.2 %; PLT - PLATELET COUNT 213 10^3/uL (130-450); RED CELL DISTRIBUTION WIDTH 12.4 % (12.0-15.0); WHITE BLOOD COUNT 5.7 x10^3/uL (4.8-10.8)
[2022-08-22 00:03] LABS: ALBUMIN 3.3 g/dL (3.2-5.5); BILIRUBIN,TOTAL 0.9 mg/dL (0.2-1.0); CALCIUM 8.4 mg/dL (8.5-10.3); CREATININE 1.3 mg/dL (0.6-1.2); POTASSIUM 3.3 mmol/L (3.5-5.0); TOTAL PROTEIN 6.5 g/dL (6.7-8.2)
[2022-08-22 00:23] LABS: VBG BASE EXCESS 1.4 mmol/L (-2 - +2); VBG HCO3 24.4 mmol/L (23-28); VBG PCO2 33.8 mmHg (41-51); VBG PH 7.477 (7.31-7.41); VBG PO2 193.4 mmHg (25-47); VBG TOTAL CO2 25.5 mmol/L (24-29)
[2022-08-22 00:24] LABS: VBG OXYGEN SATURATION 99.1 % (60-80)
--- NOTE | 2022-08-22 01:00 | XRAY Report ---
PROCEDURE: Chest 2 View X-Ray INDICATIONS: soa, covid-19 TECHNIQUE: 2 views of the chest were acquired. COMPARISON: Chest x-ray 10/28/2020 FINDINGS: Surgical changes and devices: None. Lungs and pleura: No pleural effusions or pneumothorax. Lungs are clear. There is hyperinflation of the lungs with flattening of the hemidiaphragms compatible with COPD. Mediastinum: Mediastinal contours are normal. Heart size is normal. Bones and chest wall: No suspicious bony abnormalities. Soft tissues appear unremarkable. IMPRESSION: 1. No acute cardiopulmonary disease. Reviewed by: Angel Gautam MD on 08/22/2022 12:58 AM [facility] Approved by: Angel Gautam MD on 08/22/2022 12:58 AM [facility] Station ID: [id number]
--- NOTE | 2022-08-22 01:03 | ED Physician Documentation ---
History of Present Illness - Stated complaint Stated Complaint: C+,SOA,COUGH - Chief complaint Chief Complaint: General - History obtained from History obtained from: Patient, Family () - Additonal information Additional information: 72-year-old male with past medical History of atrial fibrillation, high blood pressure, stroke without residual defects, presents with cough that is nonproductive, sore throat, mild shortness of breath and COVID-positive from test today. He had low oxygen reading on home pulse oximeter so came to get checked. Patient underwent all his vaccine and booster shots. Denies chest pain, dizziness, nausea. Review of Systems Constitutional: reports: Fever, Chills Cardiac: denies: Chest pain / pressure Respiratory: reports: Dyspnea, Cough PD PAST MEDICAL HISTORY - Past Medical History Cardiovascular: Hypertension, High cholesterol, Coronary artery disease, Peripheral Vascular Disease, Atrial fibrillation, Murmur, Arrhythmia Respiratory: COPD, Sleep apnea Neuro: Dementia, Headaches, Peripheral neuropathy Endocrine/Autoimmune: None GI: GERD, Hiatal hernia, Other : Benign prostate hypertrophy, Retention, Nocturia, Frequency HEENT: Chronic vision loss, Chronic sinusitis, Chronic hearing loss Psych: None Musculoskeletal: Chronic back pain Derm: None - Past Surgical History Past Surgical History: Yes General: Colonoscopy, EGD Ortho: Spine surgery Cardiovascular: Other (cardiac stress test-abnormal per patient) - Present Medications Home Medications: Ambulatory Orders Medication Instructions Recorded Confirmed Melatonin 10 mg PO QPM 06/18/17 05/29/21 Omeprazole 20 mg PO BIDAC 06/18/17 05/29/21 Trazodone HCl 100 mg PO QPM 06/18/17 05/29/21 Alfuzosin HCl [Alfuzosin HCl ER] 10 mg PO DAILY 09/26/19 05/29/21 Cyclobenzaprine HCl 10 mg PO TID PRN 09/26/19 05/29/21 Famotidine 20 mg PO DAILY 09/26/19 05/29/21 Furosemide [Lasix] 20 mg PO DAILY 09/26/19 05/29/21 Multivitamin [Multivitamins] 1 cap PO DAILY 09/26/19 05/29/21 Oxybutynin Chloride [Ditropan Xl] 10 mg PO DAILY 09/26/19 05/29/21 Pramipexole [Mirapex] 0.25 mg PO DAILY 09/26/19 05/29/21 Rivaroxaban [Xarelto] 20 mg PO DAILY #30 tablet 09/27/19 05/29/21 Acetaminophen [Tylenol] 650 mg PO Q4HR PRN #0 tablet 09/30/19 05/29/21 Spironolactone [Aldactone] 25 mg PO DAILY #30 tablet 09/30/19 05/29/21 Diclofenac Sodium [Voltaren] 2 gm TP Q8H PRN #1 gel..gram. 01/15/20 05/29/21 Metoprolol Succinate [Toprol Xl] 50 mg PO BIDWM 01/15/20 05/29/21 Losartan Potassium 12.5 mg PO DAILY 05/29/21 05/29/21 Magnesium Oxide [Mag Ox] 400 mg PO DAILY 05/29/21 05/29/21 polyethylene glycoL 3350 [Miralax] 17 gm PO DAILY PRN 05/29/21 05/29/21 Benzonatate [Tessalon] 100 mg PO TID PRN #20 tab 08/22/22 - Allergies Allergies/Adverse Reactions: Allergies Allergy/AdvReac Type Severity Reaction Status Date / Time methadone AdvReac sleep apnea Verified 08/21/22 22:53 - Social History Does the pt smoke?: No Smoking Status: Never smoker Does the pt drink ETOH?: Yes Does the pt have substance abuse?: No - Immunizations Immunizations are current?: Yes - POLST Patient has POLST: No POLST Status: Full Code PD ED PE NORMAL - Vitals Vital signs reviewed: Yes - General General: Alert and oriented X 3, No acute distress, Well developed/nourished - HEENT HEENT: Atraumatic, PERRL, EOMI, Moist mucous membranes - Neck Neck: Supple, no meningeal sign - Cardiac Cardiac: RRR - Respiratory Respiratory: No respiratory distress, Clear bilaterally - Abdomen Abdomen: Non tender, Non distended Results - Vitals Vitals: Vital Signs - 24 hr 08/21/22 08/22/22 22:53 01:01 Temperature 36.9 C Heart Rate 80 75 Respiratory 16 16 Rate Blood Pressure 90/60 111/70 O2 Saturation 96 97 Oxygen O2 Source Room air - Labs Labs: Laboratory Tests 08/21/22 08/21/22 08/21/22 23:40 23:40 23:56 WBC 5.7 RBC 4.10 L Hgb 12.7 L Hct 37.6 L MCV 91.7 MCH 31.0 MCHC 33.8 RDW 12.4 Plt Count 213 MPV 9.5 Neut # (Auto) 3.7 Lymph # (Auto) 1.2 L Winston # (Auto) 0.8 Eos # (Auto) 0.0 Baso # (Auto) 0.0 Absolute Nucleated RBC 0.00 Nucleated RBC % 0.0 VBG pH 7.477 H VBG pCO2 33.8 L VBG pO2 193.4 H VBG HCO3 24.4 VBG Total CO2 25.5 VBG O2 Saturation 99.1 H VBG Base Excess 1.4 Sodium 132 L Potassium 3.3 L Chloride 97 L Carbon Dioxide 27 Anion Gap 8.0 BUN 17 Creatinine 1.3 H Estimated GFR (MDRD) 54 L Glucose 100 Lactic Acid Calcium 8.4 L Total Bilirubin 0.9 AST 25 ALT 19 Alkaline Phosphatase 72 Total Protein 6.5 L Albumin 3.3 Globulin 3.2 Albumin/Globulin Ratio 1.0 Lipase 28 08/21/22 23:56 WBC RBC Hgb Hct MCV MCH MCHC RDW Plt Count MPV Neut # (Auto) Lymph # (Auto) Winston # (Auto) Eos # (Auto) Baso # (Auto) Absolute Nucleated RBC Nucleated RBC % VBG pH VBG pCO2 VBG pO2 VBG HCO3 VBG Total CO2 VBG O2 Saturation VBG Base Excess Sodium Potassium Chloride Carbon Dioxide Anion Gap BUN Creatinine Estimated GFR (MDRD) Glucose Lactic Acid 1.0 Calcium Total Bilirubin AST ALT Alkaline Phosphatase Total Protein Albumin Globulin Albumin/Globulin Ratio Lipase PD Medical Decision Making - ED course ED course: 72-year-old man presents with COVID-19 infection. His chest x-ray ordered and is without signs of acute cardiopulmonary disease per independent radiologist. I concur with the radiology report after independently reviewing the chest x- ray. CBC and abdominal panel was ordered with stable anemia from previous as well as mild ALICIA with creatinine 1.3. His venous blood gaswas benign. I discussed this with the patient and advised hydration and repeat labs with primary care provider.Symptomatic care discussed and prescription sent to pharmacy for cough suppressant. Return precautions given. Departure - Departure Disposition: 01 Home, Self Care Clinical Impression: COVID-19, ALICIA (acute kidney injury) Condition: Good Instructions: COVID-19 [facility], COVID-19 [facility] Department Statement Prescriptions: Benzonatate [Tessalon] 100 mg PO TID PRN #20 tab PRN Reason: Cough Comments: You were seen in the emergency department for management of covid-19. Your vital signs and exam uncovered no dangerous findings. You did have some inflammation on kidney labwork. You should stay well hydrated and drink 6-10 servings of liquid daily. Please follow-up with your primary care provider for repeat labs and return to the emergency department if you have any new or worsening symptoms or other concerns. Electronic prescription for anti-cough medicine was sent to [facility]. Discharge Date/Time: 08/22/22 01:06
[2022-08-22 01:06] VITALS: BP 111/70
== END 2022-08-22 01:06 | disposition home or self-care (01) ==
LOC: ED 22:47
DX: U07.1 COVID-19 (principal); N17.9 Acute kidney failure, unspecified
CPT/HCPCS: 36415; 80053; 82803; 83605; 83690; 85025; 99284

== ENCOUNTER 2022-08-28 13:02 | Outpatient (CLI) | payer BC, MEDICARE ==
[2022-08-28 18:12] LABS: ALBUMIN 3.7 g/dL (3.2-5.5); ALBUMIN/GLOBULIN RATIO 0.9 (1.0-2.2); BILIRUBIN,TOTAL 0.8 mg/dL (0.2-1.0); CALCIUM 9.4 mg/dL (8.5-10.3); CREATININE 1.1 mg/dL (0.6-1.2); POTASSIUM 4.3 mmol/L (3.5-5.0)
== END 2022-08-28 13:03 | disposition home or self-care (01) ==
LOC: LAB.N 13:02
PROVIDERS: ATTEND Physician Assistant
DX: I10 Essential (primary) hypertension (principal)
CPT/HCPCS: 36415; 80053

== ENCOUNTER 2022-11-16 23:43 | Emergency (ER) | payer BC, MEDICARE ==
[2022-11-17] MEDS ORDERED: LIDOCAINE PATCH 5% TOP STA (00:09)
[2022-11-17] MEDS ORDERED: oxyCODONE 5 MG TABLET PO STA (00:10)
--- NOTE | 2022-11-17 01:12 | XRAY Report ---
PROCEDURE: Shoulder 3 View BILAT INDICATIONS: pain TECHNIQUE: 4 views of the left and 5 views of the right shoulders. COMPARISON: Left shoulder radiographs 01/15/2020.. FINDINGS: Bones: No fractures or dislocations. Severe degenerative change at the right AC joint. Moderate dege nerative change at the left AC joint, similar. No suspicious bony lesions. Visualized ribs appear in tact. Soft tissues: No suspicious soft tissue calcifications. 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 Moderate degenerative change at the left AC joint. Reviewed by: Abebe Fried MD on 11/17/2022 1:10 AM PDT Approved by: Abebe Fried MD on 11/17/2022 1:10 AM PDT Station ID: [id number]
[2022-11-17] MEDS ORDERED: MORPHINE 2 MG/ML CARPUJECT IVP STA (01:17)
[2022-11-17] MEDS ORDERED: DEXAMETHASONE 10 MG/ML VIAL IVP STA (01:17)
[2022-11-17 01:35] LABS: BASOPHILS % (AUTO) 0.4 %; EOSINOPHILS # (AUTO) 0.1 10^3/uL (0.0-0.7); EOSINOPHILS % (AUTO) 0.8 %; HGB - HEMOGLOBIN 12.7 g/dL (14.0-18.0); LYMPHOCYTES # (AUTO) 1.5 10^3/uL (1.5-3.5); MEAN CORPUSCULAR HGB CONC 34.3 g/dL (32.0-36.0); MEAN CORPUSCULAR VOLUME 90.2 fL (80.0-94.0); MEAN PLATELET VOLUME 10.1 fL (7.4-11.4); MONOCYTES # (AUTO) 1.1 10^3/uL (0.0-1.0); MONOCYTES % (AUTO) 11.4 %; PLT - PLATELET COUNT 201 10^3/uL (130-450); RED CELL DISTRIBUTION WIDTH 13.2 % (12.0-15.0); WHITE BLOOD COUNT 9.7 x10^3/uL (4.8-10.8)
--- NOTE | 2022-11-17 01:49 | ED Physician Documentation ---
History of Present Illness - Stated complaint Stated Complaint: LT SHOULDER/NECK/HAND PX - Chief complaint Chief Complaint: Ext Problem - History obtained from History obtained from: Patient - Additonal information Additional information: Patient is a 72-year-old male presenting for evaluation of worsening neck pain and bilateral shoulder pain for the past 3 to days. However for the past 3 days he has been having sharp pains in his neck as well as into his bilateral shoulders that come in waves. He has history of prior cervical fusions as well as lower back surgeries. 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 He states that he did have issues at that time with a neurogenic bladder And did require intermittent catheterizations for some time but recently he has been able to Urinate on his own without difficulty. He also has residual right-sided weakness in his leg from the prior staph infection which is unchanged. He is on Xarelto for A-fib. He denies fever. He denies recent trauma or injury. He denies chest pain or shortness of breath. Patient states that the day prior he was using a spade in the garden. Per his daughter he does not usually do activities like that and is usually mostly sitting. Review of Systems Constitutional: denies: Fever Cardiac: denies: Chest pain / pressure Respiratory: denies: Dyspnea GI: denies: Abdominal Pain, Vomiting Musculoskeletal: reports: Neck pain Neurologic: denies: Headache PD PAST MEDICAL HISTORY - Past Medical History Past Medical History: Yes Cardiovascular: Hypertension, High cholesterol, Coronary artery disease, Peripheral Vascular Disease, Atrial fibrillation, Murmur, Arrhythmia Respiratory: COPD, Sleep apnea Neuro: Dementia, Headaches, Peripheral neuropathy Endocrine/Autoimmune: None GI: GERD, Hiatal hernia, Other : Benign prostate hypertrophy, Retention, Nocturia, Frequency HEENT: Chronic vision loss, Chronic sinusitis, Chronic hearing loss Psych: None Musculoskeletal: Chronic back pain Derm: None - Past Surgical History Past Surgical History: Yes General: Colonoscopy, EGD Ortho: Spine surgery Cardiovascular: Other - Present Medications Home Medications: Ambulatory Orders Medication Instructions Recorded Confirmed Melatonin 10 mg PO QPM 06/18/17 05/29/21 Omeprazole 20 mg PO BIDAC 06/18/17 05/29/21 Trazodone HCl 100 mg PO QPM 06/18/17 05/29/21 Alfuzosin HCl [Alfuzosin HCl ER] 10 mg PO DAILY 09/26/19 05/29/21 Cyclobenzaprine HCl 10 mg PO TID PRN 09/26/19 05/29/21 Famotidine 20 mg PO DAILY 09/26/19 05/29/21 Furosemide [Lasix] 20 mg PO DAILY 09/26/19 05/29/21 Multivitamin [Multivitamins] 1 cap PO DAILY 09/26/19 05/29/21 Oxybutynin Chloride [Ditropan Xl] 10 mg PO DAILY 09/26/19 05/29/21 Pramipexole [Mirapex] 0.25 mg PO DAILY 09/26/19 05/29/21 Rivaroxaban [Xarelto] 20 mg PO DAILY #30 tablet 09/27/19 05/29/21 Acetaminophen [Tylenol] 650 mg PO Q4HR PRN #0 tablet 09/30/19 05/29/21 Spironolactone [Aldactone] 25 mg PO DAILY #30 tablet 09/30/19 05/29/21 Diclofenac Sodium [Voltaren] 2 gm TP Q8H PRN #1 gel..gram. 01/15/20 05/29/21 Metoprolol Succinate [Toprol Xl] 50 mg PO BIDWM 01/15/20 05/29/21 Losartan Potassium 12.5 mg PO DAILY 05/29/21 05/29/21 Magnesium Oxide [Mag Ox] 400 mg PO DAILY 05/29/21 05/29/21 polyethylene glycoL 3350 [Miralax] 17 gm PO DAILY PRN 05/29/21 05/29/21 Benzonatate [Tessalon] 100 mg PO TID PRN #20 tab 08/22/22 Cyclobenzaprine [Flexeril] 10 mg PO TID PRN #20 tablet 11/17/22 Lidocaine Patch 5% [Lidoderm Patch] 1 patch TOP DAILY PRN #10 patch 11/17/22 Oxycodone HCl/Acetaminophen 1 each PO Q6H PRN #14 tablet 11/17/22 [Percocet 5-325 mg Tablet] predniSONE [Deltasone] 20 mg PO [id number] #21 tab 11/17/22 - Allergies Allergies/Adverse Reactions: Allergies Allergy/AdvReac Type Severity Reaction Status Date / Time methadone AdvReac sleep apnea Verified 11/16/22 23:47 - Social History Does the pt smoke?: No Smoking Status: Never smoker Does the pt drink ETOH?: Yes Does the pt have substance abuse?: No - Immunizations Immunizations are current?: Yes - POLST Patient has POLST: No POLST Status: Full Code PD ED PE NORMAL - General General: Alert and oriented X 3, No acute distress, Well developed/nourished - HEENT HEENT: Atraumatic, Moist mucous membranes, Pharynx benign - Neck Neck: Supple, no meningeal sign, No bony TTP - Cardiac Cardiac: RRR, No murmur, Strong equal pulses - Respiratory Respiratory: No respiratory distress, Clear bilaterally - Abdomen Abdomen: Soft, Non tender - Back Back: No spinal TTP - Derm Derm: Normal color - Extremities Extremities: No deformity, No edema, Other (Sensation and strength grossly intact in bilateral upper extremities). No: Normal ROM s pain (Pain on range of motion of bilateral shoulders) Results - Vitals Vitals: Vital Signs - 24 hr 11/16/22 11/17/22 23:47 02:58 Temperature 36.5 C 37.1 C Heart Rate 90 93 Respiratory 16 17 Rate Blood Pressure 120/66 150/98 H O2 Saturation 98 96 Oxygen O2 Source Room air - Labs Labs: Laboratory Tests 11/17/22 11/17/22 11/17/22 01:24 01:24 01:24 WBC 9.7 RBC 4.10 L Hgb 12.7 L Hct 37.0 L MCV 90.2 MCH 31.0 MCHC 34.3 RDW 13.2 Plt Count 201 MPV 10.1 Neut # (Auto) 7.0 H Lymph # (Auto) 1.5 Cochran # (Auto) 1.1 H Eos # (Auto) 0.1 Baso # (Auto) 0.0 Absolute Nucleated RBC 0.00 Nucleated RBC % 0.0 ESR 28 H Sodium 134 L Potassium 3.6 Chloride 99 L Carbon Dioxide 26 Anion Gap 9.0 BUN 12 Creatinine 1.1 Estimated GFR (MDRD) 66 L Glucose 123 H Calcium 8.4 L Total Bilirubin 1.0 AST 18 ALT 12 Alkaline Phosphatase 80 C-Reactive Protein 8.7 H Total Protein 7.0 Albumin 3.4 Globulin 3.6 Albumin/Globulin Ratio 0.9 L PD Medical Decision Making - ED course Complexity details: reviewed results, re-evaluated patient, d/w patient ED course: Patient is a 72-year-old presenting for evaluation of neck pain and bilateral shoulder pain. Initially he was having trouble describing whether the pain was radiating to his shoulders or if that was a separate issue. He did have pain on range of motion of bilateral shoulders. Clinically he does not have exam findings concerning for dislocation. X-rays were obtained which I reviewed of the shoulders with degenerative changes bilaterally. There are no fractures or dislocations. Patient initially was given p.o. oxycodone without any significant improvement. As he was initially having some difficulties in determining whether his symptoms in the shoulders were radiating pain or se parate I did obtain a CT scan of the cervical spine due to reports of prior surgeries to the area. I also ordered labs including CBC, chemistries, ESR and CRP. CRP is elevated but ESR is normal given age adjustment. Otherwise no significant findings on labs. CT scan of the cervical spine does not show fractures but does demonstrate Chronic changes and arthropathy. Patient was given IV morphine and IV dexamethasone with significant improvement in his symptoms. He has improved range of motion of bilateral shoulders And on reexam it appears that the shoulder issue is not related to the neck. The pain in the shoulder is really only bothers him when he range of motions the shoulders. Initially he was having trouble in abducting to 90 degrees but after pain medication and is able to abduct to a greater degree before feeling pain.He does have chronic pain in his neck. He does not have any new neurodeficits That would warrant an emergent MRI. He is also afebrile And normal ESR with age a djustment which I feel makes an epidural abscess less likely. Daughter is at the bedside and states that her dad does not usually do much at the home and so working in the garden a few days ago was definitely out of the ordinary. I suspect that this is the likely the exacerbation for his pain today. I have discussed continued supportive care with medications at home as well as need for close follow-up with his PCP. Patient and daughter advised on concerning symptoms to return for. Departure - Departure Disposition: 01 Home, Self Care Clinical Impression: Chronic neck pain, Bilateral shoulder pain Condition: Stable Instructions: ED Neck Pain No Trauma, ED Shoulder Pain [facility] Prescriptions: predniSONE [Deltasone] 20 mg PO [id number] #21 tab Cyclobenzaprine [Flexeril] 10 mg PO TID PRN #20 tablet PRN Reason: Spasms Lidocaine Patch 5% [Lidoderm Patch] 1 patch TOP DAILY PRN #10 patch PRN Reason: pain Oxycodone HCl/Acetaminophen [Percocet 5-325 mg Tablet] 1 each PO Q6H PRN #14 tablet PRN Reason: pain Comments: I am sending prescriptions for pain medication as well as a muscle relaxer to [facility]. We will also start you on steroids. You received the first dose here tonight. Your x-rays of your shoulders do not show anything broken or out of place but you do have significant degenerative changes in both joints. The CT of your neck also shows arthritis type changes. I believe you may have strained these areas from recent work in the garden that you are not used to doing and am hopeful your symptoms will get better with time and the medications we discussed. I would recommend close follow-up with your primary care doctor. Please call on Saturday to make an appointment for the next week. I am prescribing a short course of narcotic pain medication for you. These are potentially dangerous and addictive medications that should be used carefully. These medications may constipate you. Take an wifs-xjx-alzhtet stool softener (docusate) twice daily with plenty of water while taking these medications. If you go 24 hours without a bowel movement, take [id number] miralax, per package instructions. Do not drink or drive while taking these medications. If you received narcotic or sedating medications while in the emergency department, do not drive for 24 hours. Store this medication in a safe, secure place and out of reach of children. It is a violation of federal law to give or sell this medication to another person or to use in a manner other than prescribed. The ED will not refill narcotic prescriptions, including prescriptions lost or stolen. To dispose of unwanted medications: 1. [facility] at [address] in [place] has a medication drop box. They accept prescription medications (in pill form) Saturday through Saturday 9:00 a.m. to 5:00 p.m. 2. The [facility] [employer] accepts prescription medications (in pill form only) for disposal year round. Call for more information. 3. Contact the [facility] for the next [facility] sponsored prescription drug collection event. , [phone], or [phone]; Note that many narcotic pain relievers also contain Tylenol/acetaminophen. Please ensure that your total dose of acetaminophen from all sources does not exceed 3 g (3000 mg) per day. Return to the ER if you develop any new symptoms such as fever, weakness in your arms or legs, Trouble controlling your bowel or bladder function or any new concerns. 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 Moderate degenerative change at the left AC joint. Discharge Date/Time: 11/17/22 03:02
[2022-11-17 01:51] LABS: ALBUMIN 3.4 g/dL (3.2-5.5); ALBUMIN/GLOBULIN RATIO 0.9 (1.0-2.2); CALCIUM 8.4 mg/dL (8.5-10.3); CREATININE 1.1 mg/dL (0.6-1.2); CRP - C-REACTIVE PROTEIN 8.7 mg/dL (0-1.0); POTASSIUM 3.6 mmol/L (3.5-5.0)
[2022-11-17] MEDS ORDERED: oxyCODONE/ACET 5/325 Prepack 4 PO STA (02:44)
[2022-11-17 02:59] VITALS: BP 150/98
--- NOTE | 2022-11-17 07:06 | CT Report ---
PROCEDURE: CERVICAL SPINE WO INDICATIONS: worsening pain TECHNIQUE: Noncontrast 3 mm thick sections acquired from the skull base to the T4 level. Sagittal and coronal r eformats were then constructed. For radiation dose reduction, the following was used: automated exp osure control, adjustment of mA and/or kV according to patient size. COMPARISON: None. FINDINGS: Image quality: Excellent. Bones: No fractures or dislocations. 1 mm retrolisthesis of C2 on C3 is seen. There is partial bony fusion at C3-4 level. Loss of disc height, degenerative endplate changes and bilateral facet hypertro phic changes are noted throughout cervical spine most notably at C5-6 and C6-7 levels causing mild-to -moderate central canal stenosis and bilateral neural foraminal narrowing. Visualized superior ribs a re intact. Soft tissues: Prevertebral soft tissues are normal in thickness. No paravertebral hematomas. No ap ical pneumothoraces. IMPRESSION: 1. No acute cervical spine fracture or dislocation. 2. Degenerative disc disease throughout cervical spine as above. Findings are concordant with preliminary interpretation provided by [facility]. Reviewed by: Anival Price MD on 11/17/2022 7:04 AM PDT Approved by: Anival Price MD on 11/17/2022 7:04 AM PDT Station ID: [id number]
== END 2022-11-17 03:02 | disposition home or self-care (01) ==
LOC: ED 23:43
DX: M25.512 Pain in left shoulder (principal); M25.511 Pain in right shoulder; M54.2 Cervicalgia; G89.29 Other chronic pain; Z98.1 Arthrodesis status
CPT/HCPCS: 36415; 72125; 73030; 80053; 85025; 85651; 86140; 96374; 96375; 99284; A9270

== ENCOUNTER 2022-12-24 11:19 | Outpatient (CLI) | payer BC, MEDICARE ==
[2022-12-24 17:57] LABS: ALBUMIN 3.9 g/dL (3.2-5.5); ALBUMIN/GLOBULIN RATIO 1.1 (1.0-2.2); BILIRUBIN,TOTAL 0.7 mg/dL (0.2-1.0); CALCIUM 9.1 mg/dL (8.5-10.3); CREATININE 1.2 mg/dL (0.6-1.2); POTASSIUM 4.2 mmol/L (3.5-5.0); TOTAL PROTEIN 7.6 g/dL (6.7-8.2)
[2022-12-24 22:08] LABS: ESTIMATED AVERAGE GLUCOSE 126 mg/dL (70-100)
== END 2022-12-24 11:20 | disposition home or self-care (01) ==
LOC: LAB.N 11:19
PROVIDERS: ATTEND Physician Assistant Medical
DX: R73.9 Hyperglycemia, unspecified (principal)
CPT/HCPCS: 36415; 80053; 83036

== ENCOUNTER 2022-12-26 08:00 | Outpatient (CLI) | payer BC, MEDICARE | END 2022-12-26 23:59 | disposition home or self-care (01) | LOC: LAB.WCP 08:00 | PROVIDERS: ATTEND Physician Assistant Medical | DX: R30.0 Dysuria (principal) | CPT/HCPCS: 87077; 87086; 87181 ==

== ENCOUNTER 2023-03-23 08:00 | Outpatient (CLI) | payer BC, MEDICARE | END 2023-03-23 23:59 | disposition home or self-care (01) | LOC: LAB.N 08:00 | PROVIDERS: ATTEND Family Medicine | DX: R30.0 Dysuria (principal) | CPT/HCPCS: 87077; 87086 ==

== ENCOUNTER 2023-06-22 09:35 | Outpatient (CLI) | payer BC, MEDICARE ==
[2023-06-22 19:20] LABS: BASOPHILS % (AUTO) 0.6 %; EOSINOPHILS # (AUTO) 0.2 10^3/uL (0.0-0.7); EOSINOPHILS % (AUTO) 2.3 %; HCT - HEMATOCRIT 43.7 % (42.0-52.0); HGB - HEMOGLOBIN 14.3 g/dL (14.0-18.0); LYMPHOCYTES % (AUTO) 30.5 %; MEAN CORPUSCULAR HEMOGLOBIN 30.6 pg (27.0-31.0); MEAN CORPUSCULAR HGB CONC 32.7 g/dL (32.0-36.0); MEAN CORPUSCULAR VOLUME 93.4 fL (80.0-94.0); MEAN PLATELET VOLUME 10.7 fL (7.4-11.4); MONOCYTES # (AUTO) 0.7 10^3/uL (0.0-1.0); MONOCYTES % (AUTO) 10.7 %; NEUTROPHILS # (AUTO) 3.7 10^3/uL (1.5-6.6); NEUTROPHILS % (AUTO) 55.4 %; PLT - PLATELET COUNT 342 10^3/uL (130-450); RED BLOOD COUNT 4.68 10^6/uL (4.70-6.10); WHITE BLOOD COUNT 6.7 x10^3/uL (4.8-10.8)
[2023-06-22 19:34] LABS: ALBUMIN 3.9 g/dL (3.2-5.5); ALBUMIN/GLOBULIN RATIO 1.4 (1.0-2.2); ALKALINE PHOSPHATASE 80 IU/L (42-121); ALT ALANINE AMINOTRANSFERASE 12 IU/L (10-60); AST ASPARTATE AMINOTRANSFERASE 14 IU/L (10-42); BILIRUBIN,TOTAL 0.5 mg/dL (0.2-1.0); BUN - BLOOD UREA NITROGEN 13 mg/dL (6-20); CARBON DIOXIDE - CO2 28 mmol/L (21-32); CHLORIDE 102 mmol/L (101-111); CHOL/HDL RATIO 2.4 (<5.0); CHOLESTEROL 142 mg/dL; GFR - MDRD 73 (>89); GLUCOSE 112 mg/dL (74-104); HDL CHOLESTEROL 59 mg/dL; LDL CHOLESTEROL,CALCULATED 66 mg/dL; LDL/HDL RATIO 1.1 (<3.6); POTASSIUM 4.3 mmol/L (3.5-4.5); SODIUM 135 mmol/L (135-145); TOTAL PROTEIN 6.7 g/dL (6.4-8.9); TRIGLYCERIDES 85 mg/dL (48-352); VLDL CHOLESTEROL 17 mg/dL
== END 2023-06-22 09:36 | disposition home or self-care (01) ==
LOC: LAB.N 09:35
PROVIDERS: ATTEND Physician Assistant Medical
DX: K21.9 Gastro-esophageal reflux disease without esophagitis (principal); E78.5 Hyperlipidemia, unspecified
CPT/HCPCS: 36415; 80053; 80061; 83721; 85025

== ENCOUNTER 2023-06-26 16:50 | Outpatient (CLI) | payer BC, MEDICARE ==
--- NOTE | 2023-06-27 10:03 | XRAY Report ---
PROCEDURE: Hips 2V BILAT INDICATIONS: HIP PAIN, LEFT TECHNIQUE: 3 views of the hip were acquired. COMPARISON: None. FINDINGS: Bones: No fractures or dislocations. Moderate bilateral hip joint osteoarthritic changes are seen w ith joint space narrowing, subchondral sclerosis and small marginal osteophyte formation. No evidence of avascular necrosis of femoral head. Degenerative disc disease in visualized lower lumbar spine is seen. No suspicious bony lesions. Soft tissues: No suspicious soft tissue calcifications or masses. IMPRESSION: Symmetric appearing moderate bilateral hip joint osteoarthritis. No pelvic or hip fracture. No eviden ce of avascular necrosis. Degenerative disc disease in visualized lower lumbar spine. Reviewed by: Anival Price MD on 06/27/2023 10:02 AM [facility] Approved by: Anival Price MD on 06/27/2023 10:02 AM PST Station ID: [id number]
== END 2023-06-26 16:51 | disposition home or self-care (01) ==
LOC: DI 16:50
PROVIDERS: ATTEND Physician Assistant Medical
DX: M16.0 Bilateral primary osteoarthritis of hip (principal); M51.36 Other intervertebral disc degeneration, lumbar region

== ENCOUNTER 2023-09-11 08:00 | Outpatient (CLI) | payer BC, MEDICARE | END 2023-09-11 23:59 | disposition home or self-care (01) | LOC: LAB 08:00 | PROVIDERS: ATTEND Urology | DX: N32.81 Overactive bladder (principal) | CPT/HCPCS: 87086 ==

== ENCOUNTER 2023-10-07 03:46 | Emergency (ER) | payer BC, MEDICARE ==
--- NOTE | 2023-10-07 04:19 | ED Physician Documentation ---
PD HPI NECK PAIN - Stated complaint Stated Complaint: NECK PX - Chief complaint Chief Complaint: Ext Problem - History obtained from History obtained from: Patient - Additional information Additional information: HPI from patient. Patient c/o atraumatic neck pain, gradual onset one week ago. No inciting event. Pain is constant , most pronounced on left posterolateral aspect of neck. The pain has steadily progressed in severity since onset. Pain is exacerbated with movement, particularly turning head to either side. Denies h/o similar pain. Denies numbness, weakness. He has history of cervical spine fusion. He was evaluated in an outpatient clinic 3 days ago for this pain, was prescribed flexeril and given IM toradol. He has not had any noticeable relief/improvement with these medications. Review of Systems Musculoskeletal: reports: Neck pain Neurologic: denies: Focal weakness, Numbness, Headache PD PAST MEDICAL HISTORY - Past Medical History Past Medical History: Yes Cardiovascular: Hypertension, High cholesterol, Coronary artery disease, Peripheral Vascular Disease, Atrial fibrillation, Murmur, Arrhythmia Respiratory: COPD, Sleep apnea Neuro: Headaches, Peripheral neuropathy Endocrine/Autoimmune: None GI: GERD, Hiatal hernia, Other : Benign prostate hypertrophy, Retention, Nocturia, Frequency HEENT: Chronic vision loss, Chronic sinusitis, Chronic hearing loss Psych: None Musculoskeletal: Chronic back pain Derm: None - Past Surgical History Past Surgical History: Yes General: Colonoscopy, EGD Ortho: Spine surgery, Other Cardiovascular: Other - Present Medications Home Medications: Ambulatory Orders Medication Instructions Recorded Confirmed Melatonin 10 mg PO QPM 06/18/17 05/29/21 Omeprazole 20 mg PO BIDAC 06/18/17 05/29/21 Trazodone HCl 100 mg PO QPM 06/18/17 05/29/21 Alfuzosin HCl [Alfuzosin HCl ER] 10 mg PO DAILY 09/26/19 05/29/21 Cyclobenzaprine HCl 10 mg PO TID PRN 09/26/19 05/29/21 Famotidine 20 mg PO DAILY 09/26/19 05/29/21 Furosemide [Lasix] 20 mg PO DAILY 09/26/19 05/29/21 Multivitamin [Multivitamins] 1 cap PO DAILY 09/26/19 05/29/21 Pramipexole [Mirapex] 0.25 mg PO DAILY 09/26/19 05/29/21 oxyBUTYnin chloride [Ditropan Xl] 10 mg PO DAILY 09/26/19 05/29/21 Rivaroxaban [Xarelto] 20 mg PO DAILY #30 tablet 09/27/19 05/29/21 Acetaminophen [Tylenol] 650 mg PO Q4HR PRN #0 tablet 09/30/19 05/29/21 Spironolactone [Aldactone] 25 mg PO DAILY #30 tablet 09/30/19 05/29/21 Diclofenac Sodium [Voltaren] 2 gm TP Q8H PRN #1 gel..gram. 01/15/20 05/29/21 Metoprolol Succinate [Toprol Xl] 50 mg PO BIDWM 01/15/20 05/29/21 Losartan Potassium 12.5 mg PO DAILY 05/29/21 05/29/21 Magnesium Oxide [Mag Ox] 400 mg PO DAILY 05/29/21 05/29/21 polyethylene glycoL 3350 [Miralax] 17 gm PO DAILY PRN 05/29/21 05/29/21 Benzonatate [Tessalon] 100 mg PO TID PRN #20 tab 08/22/22 Cyclobenzaprine [Flexeril] 10 mg PO TID PRN #20 tablet 11/17/22 Lidocaine Patch 5% [Lidoderm Patch] 1 patch TOP DAILY PRN #10 patch 11/17/22 Oxycodone HCl/Acetaminophen 1 each PO Q6H PRN #14 tablet 11/17/22 [Percocet 5-325 mg Tablet] predniSONE [Deltasone] 20 mg PO [id number] #21 tab 11/17/22 Oxycodone HCl/Acetaminophen 1 - 2 each PO Q6H PRN #14 tablet 10/07/23 [Percocet 5-325 mg Tablet] - Allergies Allergies/Adverse Reactions: Allergies Allergy/AdvReac Type Severity Reaction Status Date / Time methadone AdvReac sleep apnea Verified 10/07/23 04:03 - Social History Does the pt smoke?: No Smoking Status: Never smoker Does the pt drink ETOH?: Yes Does the pt have substance abuse?: No - Immunizations Immunizations are current?: Yes - POLST Patient has POLST: No POLST Status: Full Code PD ED PE NORMAL - Vitals Vital signs reviewed: Yes - General General: Alert and oriented X 3, No acute distress (NAD at rest but obvious painful discomfort when moving head /neck, particularly turning/rotating either direction), Well developed/nourished - Neck Neck: No bony TTP, No adenopathy - Neuro Neuro: No motor deficit (5/5 bilateral doctor of osteopathy and bicep strength), No sensory deficit (LTS intact BUE (tested at deltoids, FA, fingertips)) Results - Vitals Vitals: Oxygen O2 Source Room air - Rads (name of study) cervical spine xrays Relevant Findings:: Prelim report reviewed, See rad report PD Medical Decision Making - ED course Complexity details: reviewed results, re-evaluated patient, considered differential, d/w patient, d/w family ED course: plain-film xrays with abnormalities (multilevel DDD, C2-C3 retrolisthesis, C5-C6 anterolisthesis, C3-C4 fusion) that are unchanged compared to CT study performed 11/17/22. HPI is s/o musculoskeletal etiology with possible muscle spasm. Given oxycodone 10mg PO in ED and rx for same provided. Advised to continue the flexeril as prescribed, and to seek follow up with PCP for reevaluation. Return precautions discussed. Departure - Departure Disposition: 01 Home, Self Care Clinical Impression: Neck pain Condition: Good Instructions: ED Neck Pain No Trauma Prescriptions: Oxycodone HCl/Acetaminophen [Percocet 5-325 mg Tablet] 1 - 2 each PO Q6H PRN #14 tablet PRN Reason: pain Comments: There were no concerning findings on tonight's x-rays of the neck. As we discussed, there are abnormalities on these x-rays, but the radiologist specifically notes that none of these findings are new or worse compared to the CT scan you had last year of your neck. Thus, the specific cause of your neck pain is not apparent at this time. I have electronically submitted a prescription for Percocet (narcotic/opiate pain medication) to the [facility] pharmacy in [place]. Contact your primary care provider's office when they open later this morning to arrange for the next available appointment for reevaluation. I am prescribing a short course of narcotic pain medication for you. These are potentially dangerous and addictive medications that should be used carefully. These medications may constipate you. Take an nggc-kti-wblxbyj stool softener (docusate) twice daily with plenty of water while taking these medications. If you go 24 hours without a bowel movement, take ljvi-brl-[id number] miralax, per package instructions. Do not drink or drive while taking these medications. If you received narcotic or sedating medications while in the emergency department, do not drive for 24 hours. Store this medication in a safe, secure place and out of reach of children. It is a violation of federal law to give or sell this medication to another person or to use in a manner other than prescribed. The ED will not refill narcotic prescriptions, including prescriptions lost or stolen. To dispose of unwanted medications: 1. [facility] at [address] in [place] has a medication drop box. They accept prescription medications (in pill form) Saturday through Saturday 9:00 a.m. to 5:00 p.m. 2. The [facility] [employer] accepts prescription medications (in pill form only) for disposal year round. Call for more information. 3. Contact the [facility] for the next [facility] sponsored prescription drug collection event. , [phone], or [phone]; Forms: PCP List Discharge Date/Time: 10/07/23 06:30
[2023-10-07] MEDS: oxyCODONE 5 MG TABLET PO STA (04:58)
[2023-10-07 06:42] VITALS: BP 138/96; O2SAT 96
--- NOTE | 2023-10-07 08:18 | XRAY Report ---
PROCEDURE: Cervical Spine 2-3V INDICATIONS: neck pain TECHNIQUE: 3 view(s) of the cervical spine were acquired. COMPARISON: CT cervical spine dated 11/17/2022 FINDINGS: Bones: No fractures or dislocations to the T1 level. The lateral masses of C1 appear intact on the odontoid view. No suspicious bony lesions. Unchanged alignment. Retrolisthesis of C2 on C3. Interbo dy fusion at C3-C4. Trace anterolisthesis of C4 on C5 and C5 on C6. Multilevel facet arthropathy, anabell te prominent on the left at C4-C5. Soft tissues: No prevertebral soft tissue swelling. IMPRESSION: 1. No acute cervical fracture or dislocation. 2. Cervical spondylitic change. 3. No significant change identified from previous CT. Findings are concordant with preliminary interpretation provided by [facility]. Reviewed by: Julio C Marx MD on 10/07/2023 8:17 AM PST Approved by: Julio C Marx MD on 10/07/2023 8:17 AM PST Station ID: [id number]
== END 2023-10-07 06:30 | disposition home or self-care (01) ==
LOC: ED 03:46
DX: M54.2 Cervicalgia (principal); I10 Essential (primary) hypertension; E78.00 Pure hypercholesterolemia, unspecified; I25.10 Atherosclerotic heart disease of native coronary artery without angina pectoris; I48.91 Unspecified atrial fibrillation; J44.9 Chronic obstructive pulmonary disease, unspecified; Z79.899 Other long term (current) drug therapy; Z79.01 Long term (current) use of anticoagulants
CPT/HCPCS: 72040; 99283; 99284; A9270

== ENCOUNTER 2023-12-12 21:27 | Outpatient (CLI) | payer MEDICARE, BC | END 2023-12-12 21:28 | disposition critical access hospital (66) | LOC: EMS 21:27 | DX: R41.82 Altered mental status, unspecified (principal); W18.30XA Fall on same level, unspecified, initial encounter; Y92.009 Unspecified place in unspecified non-institutional (private) residence as the place of occurrence of the external cause; F10.90 Alcohol use, unspecified, uncomplicated | CPT/HCPCS: A0425; A0429 ==

== ENCOUNTER 2023-12-12 21:46 | Emergency (ER) | payer BC, MEDICARE ==
--- NOTE | 2023-12-12 21:52 | ED Physician Documentation ---
PD HPI HEAD INJURY - Stated complaint Stated Complaint: GLF/ETOH - History obtained from History obtained from: Patient, EMS - Additional information Additional information: 73-year-old gentleman on Xarelto for atrial fibrillation. His had stepped out for a second and he had a ground-level fall. He was under the hard surface.. He was indoors. He does not recall it per se and does not feel injured, does have some chronic neck pain which she does not think is worse than normal. PD PAST MEDICAL HISTORY - Past Medical History Cardiovascular: Hypertension, High cholesterol, Coronary artery disease, Peripheral Vascular Disease, Atrial fibrillation, Murmur, Arrhythmia Respiratory: COPD, Sleep apnea Neuro: Headaches, Peripheral neuropathy Endocrine/Autoimmune: None GI: GERD, Hiatal hernia, Other : Benign prostate hypertrophy, Retention, Nocturia, Frequency HEENT: Chronic vision loss, Chronic sinusitis, Chronic hearing loss Psych: None Musculoskeletal: Chronic back pain Derm: None - Past Surgical History Past Surgical History: Yes General: Colonoscopy, EGD Ortho: Spine surgery, Other Cardiovascular: Other - Present Medications Home Medications: Ambulatory Orders Medication Instructions Recorded Confirmed Melatonin 10 mg PO QPM 06/18/17 12/12/23 Trazodone HCl 100 mg PO QPM 06/18/17 12/12/23 Alfuzosin HCl [Alfuzosin HCl ER] 10 mg PO DAILY 09/26/19 12/12/23 Furosemide [Lasix] 20 mg PO DAILY 09/26/19 12/12/23 Multivitamin [Multivitamins] 1 cap PO DAILY 09/26/19 12/12/23 Rivaroxaban [Xarelto] 20 mg PO DAILY #30 tablet 09/27/19 12/12/23 Metoprolol Succinate [Toprol Xl] 50 mg PO BIDWM 01/15/20 12/12/23 Losartan Potassium 12.5 mg PO DAILY 05/29/21 12/12/23 Magnesium Oxide [Mag Ox] 400 mg PO DAILY 05/29/21 12/12/23 Atorvastatin [Lipitor] 20 mg PO DAILY 12/12/23 12/12/23 - Allergies Allergies/Adverse Reactions: Allergies Allergy/AdvReac Type Severity Reaction Status Date / Time methadone AdvReac sleep apnea Verified 12/12/23 22:04 - Social History Does the pt smoke?: No Smoking Status: Never smoker Does the pt drink ETOH?: Yes Does the pt have substance abuse?: No - Immunizations Immunizations are current?: Yes - POLST Patient has POLST: No POLST Status: Full Code PD ED PE NORMAL - Vitals Vital signs reviewed: Yes - General General: Alert and oriented X 3, Other (A jovial man with slightly slurred speech.) - HEENT HEENT: PERRL, EOMI (Mild horizontal nystagmus) - Neck Neck: No bony TTP - Cardiac Cardiac: RRR, No murmur - Respiratory Respiratory: No respiratory distress, Clear bilaterally - Abdomen Abdomen: Non tender - Derm Derm: Normal color, Warm and dry, No rash - Extremities Extremities: No edema, No calf tenderness / cord - Neuro Neuro: Alert and oriented X 3, manager field 2-12 intact, No motor deficit, No sensory deficit, Normal speech Eye Opening: Spontaneous Motor: Obeys Commands Verbal: Oriented GCS Score: 15 Results - Vitals Vitals: Vital Signs - 24 hr 12/12/23 12/12/23 12/12/23 21:45 22:15 22:38 Temperature 36.5 C 36.7 C Heart Rate 52 L 67 74 Respiratory 13 16 13 Rate Blood Pressure 110/70 106/61 104/71 O2 Saturation 98 95 97 Oxygen O2 Source Room air - Rads (name of study) CT of the head and cervical spine were negative except for extensive degenerative changes. No trauma. Relevant Findings:: Final report received, EMP independent interpretation of test PD Medical Decision Making - ED course ED course: He is very mildly intoxicated and had a ground-level fall. He is unsure whether he hit his head and he is on Xarelto. Out of an abundance of precaution CT of the head and cervical spine will be obtained. arrived and was appropriately worried about him. CT imaging was subsequently negative for acute trauma. Departure - Departure Disposition: 01 Home, Self Care Clinical Impression: Injury of head and neck Qualifiers: Encounter type: initial encounter Qualified Code(s): S09.90XA - Unspecified injury of head, initial encounter Condition: Good Record reviewed to determine appropriate education?: Yes Instructions: ED Head Injury Closed Comments: Refrain from drinking any more alcohol tonight and do not drive tonight. Return for new or worsening symptoms and follow-up with your primary care physician, next available appointment. Forms: PCP List Discharge Date/Time: 12/12/23 22:55
--- NOTE | 2023-12-12 22:21 | CT Report ---
PROCEDURE: Head WO INDICATIONS: fall etoh TECHNIQUE: Noncontrast 4.5 mm thick angled axial sections acquired from the foramen magnum to the vertex. For r adiation dose reduction, the following was used: automated exposure control, adjustment of mA and/or kV according to patient size. COMPARISON: 08/15/2020 FINDINGS: Image quality: Diagnostic CSF spaces: Basal cisterns are patent. Lateral ventricles are symmetric. Volume: Vascular calcifications. Periventricular white matter disease is commonly seen with chronic m icroangiopathy. Volume loss is present. These findings are mild to moderate. Brain: No intracranial hemorrhage. Land-white differentiation is grossly maintained. Craniofacial structures: Mild paranasal sinus mucosal thickening. IMPRESSION: No acute intracranial abnormality. Reviewed by: Ajay Villalobos MD on 12/12/2023 10:20 PM PDT Approved by: Ajay Villalobos MD on 12/12/2023 10:20 PM PDT Station ID: [id number]
--- NOTE | 2023-12-12 22:25 | CT Report ---
PROCEDURE: Cervical Spine WO INDICATIONS: fall etoh TECHNIQUE: Noncontrast 3 mm thick sections acquired from the skull base to the T4 level. Sagittal and coronal r eformats were then constructed. For radiation dose reduction, the following was used: automated exp osure control, adjustment of mA and/or kV according to patient size. COMPARISON: 11/17/2022 FINDINGS: Image quality: Diagnostic Bones: Trace retrolisthesis of C2 on C3 is unchanged. There is partial fusion as before of C3-C4. Mod erate overall degenerative changes, focal kyphosis also unchanged at C6-C7. Soft tissues: No pathologic prevertebral soft tissue swelling. No apical pneumothorax. IMPRESSION: Moderate degenerative changes. Chronic findings as above, unchanged. No acute fracture or traumatic s ubluxation. If there is high concern for further derangement, consider MRI evaluation. Reviewed by: Ajay Villalobos MD on 12/12/2023 10:24 PM PDT Approved by: Ajay Villalobos MD on 12/12/2023 10:24 PM PDT Station ID: [id number]
[2023-12-12 22:43] VITALS: BP 104/71; O2SAT 97
== END 2023-12-12 22:55 | disposition home or self-care (01) ==
LOC: EDUNIT# → ED 21:46
DX: S09.90XA Unspecified injury of head, initial encounter (principal); W18.30XA Fall on same level, unspecified, initial encounter; I48.91 Unspecified atrial fibrillation; E78.00 Pure hypercholesterolemia, unspecified; I25.10 Atherosclerotic heart disease of native coronary artery without angina pectoris; J44.9 Chronic obstructive pulmonary disease, unspecified; Z79.01 Long term (current) use of anticoagulants; Z79.899 Other long term (current) drug therapy
CPT/HCPCS: 99283; 99284

== ENCOUNTER 2024-02-10 21:43 | Emergency (ER) | payer BC, MEDICARE ==
[2024-02-10 22:21] LABS: BASOPHILS % (AUTO) 0.3 %; EOSINOPHILS % (AUTO) 0.1 %; HCT - HEMATOCRIT 37.9 % (42.0-52.0); LYMPHOCYTES # (AUTO) 0.7 10^3/uL (1.5-3.5); LYMPHOCYTES % (AUTO) 5.9 %; MEAN CORPUSCULAR HEMOGLOBIN 29.8 pg (27.0-31.0); MEAN CORPUSCULAR HGB CONC 34.3 g/dL (32.0-36.0); MEAN CORPUSCULAR VOLUME 86.9 fL (80.0-94.0); MEAN PLATELET VOLUME 9.9 fL (7.4-11.4); MONOCYTES # (AUTO) 0.8 10^3/uL (0.0-1.0); MONOCYTES % (AUTO) 6.6 %; NEUTROPHILS # (AUTO) 9.8 10^3/uL (1.5-6.6); NEUTROPHILS % (AUTO) 86.6 %; PLT - PLATELET COUNT 181 10^3/uL (130-450); RED BLOOD COUNT 4.36 10^6/uL (4.70-6.10); RED CELL DISTRIBUTION WIDTH 13.3 % (12.0-15.0); WHITE BLOOD COUNT 11.3 x10^3/uL (4.8-10.8)
[2024-02-10 22:42] LABS: ALBUMIN 3.5 g/dL (3.2-5.5); ALBUMIN/GLOBULIN RATIO 1.2 (1.0-2.2); ALKALINE PHOSPHATASE 103 IU/L (42-121); ALT ALANINE AMINOTRANSFERASE 13 IU/L (10-60); AST ASPARTATE AMINOTRANSFERASE 21 IU/L (10-42); BILIRUBIN,TOTAL 1.8 mg/dL (0.2-1.0); BUN - BLOOD UREA NITROGEN 16 mg/dL (6-20); CALCIUM 8.7 mg/dL (8.5-10.3); CARBON DIOXIDE - CO2 25 mmol/L (21-32); CHLORIDE 93 mmol/L (101-111); CREATININE 1.1 mg/dL (0.6-1.3); GFR - MDRD 66 (>89); GLUCOSE 143 mg/dL (74-104); LIPASE < 10 U/L (11-82); POTASSIUM 3.3 mmol/L (3.5-4.5); SODIUM 126 mmol/L (135-145); TOTAL PROTEIN 6.4 g/dL (6.4-8.9)
[2024-02-10 22:42] LABS: BILIRUBIN,URINE NEGATIVE (NEGATIVE); GLUCOSE, URINE (UA) NEGATIVE (NEGATIVE); KETONES,URINE (UA) 15 mg/dL (NEGATIVE); LEUKOCYTE ESTERASE, URINE SMALL (NEGATIVE); NITRITE,URINE NEGATIVE (NEGATIVE); OCCULT BLOOD,URINE SMALL (NEGATIVE); PROTEIN,URINE 30 mg/dL (NEGATIVE); UROBILINOGEN,URINE 1 (NORMAL) E.U./dL (NORMAL)
[2024-02-10 22:46] LABS: CLARITY,URINE HAZY (CLEAR)
[2024-02-10 22:49] LABS: RBC,URINE 0-5 /HPF (0-5); SQUAMOUS EPITHELIAL CELL,UR MOD Squamous (<= Few)
[2024-02-10 22:50] LABS: BACTERIA,URINE Few /HPF (None Seen)
[2024-02-10 23:41] LABS: B. PARAPERTUSSIS- RESP PCR PAN NOT DETECTED; B. PERTUSSIS- RESP PCR PANEL NOT DETECTED; C. PNEUMONIAE- RESP PCR PANEL NOT DETECTED; CORONAVIRUS 229E-RESP PCR NOT DETECTED; CORONAVIRUS HKU1-RESP PCR NOT DETECTED; CORONAVIRUS NL63-RESP PCR NOT DETECTED; CORONAVIRUS OC43-RESP PCR NOT DETECTED; HUMAN METAPNEUMOVIRUS NOT DETECTED; INFLUENZA A- RESP PCR PANEL NOT DETECTED; INFLUENZA B - RESP PCR PANEL NOT DETECTED; M. PNEUMONIAE- RESP PCR PANEL NOT DETECTED; PARAINFLUENZA VIRUS 1 NOT DETECTED; PARAINFLUENZA VIRUS 2 NOT DETECTED; PARAINFLUENZA VIRUS 3 NOT DETECTED; PARAINFLUENZA VIRUS 4 NOT DETECTED; RHINOVIRUS/ENTEROVIRUS NOT DETECTED; RSV- RESP PCR PANEL NOT DETECTED; SARS-CoV-2 -RESP PCR PANEL NOT DETECTED
[2024-02-11] MEDS: SODIUM CHLORIDE 0.9% 1,000 ML IV STA (00:52)
--- NOTE | 2024-02-11 01:50 | ED Physician Documentation ---
History of Present Illness - Stated complaint Stated Complaint: Weakness, vomiting - Chief complaint Chief Complaint: General - History obtained from History obtained from: Patient, Family - Additonal information Additional information: The patient is brought to the emergency department by his daughter for chief complaint of vomiting and weakness over the last 24 hours. He has been able to hold down Gatorade prior to coming here but otherwise was seemingly vomiting everything up. He has not been running any fevers. He has had some lower abdominal pain but no dysuria. He has a history of frequent UTIs, due to prostatic hypertrophy and is followed by urology for this. His daughter states that he was weak this afternoon and she had trouble getting him up to a standing position in a chair. The patient states he has felt tired but denies any focal weakness. The patient has some dementia according to his daughter, and lives at home with her. No other complaints at this time. PD PAST MEDICAL HISTORY - Past Medical History Past Medical History: Yes Cardiovascular: Hypertension, High cholesterol, Coronary artery disease, Peripheral Vascular Disease, Atrial fibrillation, Murmur, Arrhythmia Respiratory: COPD, Sleep apnea Neuro: Headaches, Peripheral neuropathy Endocrine/Autoimmune: None GI: GERD, Hiatal hernia, Other : Benign prostate hypertrophy, Retention, Nocturia, Frequency HEENT: Chronic vision loss, Chronic sinusitis, Chronic hearing loss Psych: None Musculoskeletal: Chronic back pain Derm: None - Past Surgical History Past Surgical History: Yes General: Colonoscopy, EGD Ortho: Spine surgery, Other Cardiovascular: Other - Present Medications Home Medications: Ambulatory Orders Medication Instructions Recorded Confirmed Melatonin 10 mg PO QPM 06/18/17 12/12/23 Trazodone HCl 100 mg PO QPM 06/18/17 12/12/23 Alfuzosin HCl [Alfuzosin HCl ER] 10 mg PO DAILY 09/26/19 12/12/23 Furosemide [Lasix] 20 mg PO DAILY 09/26/19 12/12/23 Multivitamin [Multivitamins] 1 cap PO DAILY 09/26/19 12/12/23 Rivaroxaban [Xarelto] 20 mg PO DAILY #30 tablet 09/27/19 12/12/23 Metoprolol Succinate [Toprol Xl] 50 mg PO BIDWM 01/15/20 12/12/23 Losartan Potassium 12.5 mg PO DAILY 05/29/21 12/12/23 Magnesium Oxide [Mag Ox] 400 mg PO DAILY 05/29/21 12/12/23 Atorvastatin [Lipitor] 20 mg PO DAILY 12/12/23 12/12/23 Ondansetron Odt [Zofran] 4 mg TL Q6H PRN #10 tablet 02/11/24 Sulfamethox/Trimeth 800/160 1 each PO BID #14 tablet 02/11/24 [Bactrim Ds 800/160] - Allergies Allergies/Adverse Reactions: Allergies Allergy/AdvReac Type Severity Reaction Status Date / Time methadone AdvReac sleep apnea Verified 02/10/24 21:49 - Social History Does the pt smoke?: No Smoking Status: Never smoker Does the pt drink ETOH?: Yes Does the pt have substance abuse?: No - Immunizations Immunizations are current?: Yes - POLST Patient has POLST: No POLST Status: Full Code PD ED PE NORMAL - Vitals Vital signs reviewed: Yes - General General: No acute distress, Well developed/nourished, Other (Alert, appropriate) - HEENT HEENT: Atraumatic, PERRL, EOMI, Moist mucous membranes - Neck Neck: Supple, no meningeal sign - Cardiac Cardiac: RRR, No murmur - Respiratory Respiratory: No respiratory distress, Clear bilaterally - Abdomen Abdomen: Soft, Non tender, Non distended - Derm Derm: Normal color, Warm and dry, No rash - Extremities Extremities: No deformity, No edema - Neuro Neuro: Alert and oriented X 3, varnish remover 2-12 intact, Normal speech - Psych Psych: Normal mood, Normal affect Results - Vitals Vitals: Vital Signs - 24 hr 02/10/24 02/10/24 02/11/24 21:49 23:25 00:57 Temperature 36.8 C Heart Rate 100 85 96 Respiratory 16 18 18 Rate Blood Pressure 142/70 H 127/78 129/82 H O2 Saturation 97 99 97 02/11/24 02:04 Temperature Heart Rate 94 Respiratory 18 Rate Blood Pressure 130/91 H O2 Saturation 99 Oxygen O2 Source Room air - Labs Labs: Laboratory Tests 02/10/24 02/10/24 02/10/24 22:12 22:12 22:20 WBC 11.3 H RBC 4.36 L Hgb 13.0 L Hct 37.9 L MCV 86.9 MCH 29.8 MCHC 34.3 RDW 13.3 Plt Count 181 MPV 9.9 Neut # (Auto) 9.8 H Lymph # (Auto) 0.7 L [place] # (Auto) 0.8 Eos # (Auto) 0.0 Baso # (Auto) 0.0 Absolute Nucleated RBC 0.00 Nucleated RBC % 0.0 Sodium 126 L Potassium 3.3 L Chloride 93 L Carbon Dioxide 25 Anion Gap 8.0 BUN 16 Creatinine 1.1 Estimated GFR (MDRD) 66 L Glucose 143 H Calcium 8.7 Total Bilirubin 1.8 H AST 21 ALT 13 Alkaline Phosphatase 103 Total Protein 6.4 Albumin 3.5 Globulin 2.9 Albumin/Globulin Ratio 1.2 Lipase < 10 L Urine Color YELLOW Urine Clarity HAZY Urine pH 6.0 Ur Specific [place] 1.015 Urine Protein 30 H Urine Glucose (UA) NEGATIVE Urine Ketones 15 H Urine Occult Blood SMALL H Urine Nitrite NEGATIVE Urine Bilirubin NEGATIVE Urine Urobilinogen 1 (NORMAL) Ur Leukocyte Esterase SMALL H Urine RBC 0-5 Urine WBC 11-25 H Ur Squamous Epith Cells MOD Squamous H Urine Bacteria Few Ur Microscopic Review INDICATED Urine Culture Comments NOT INDICATED Nasal Adenovirus (PCR) Nasal B. parapertussis DNA (PCR) Nasal Coronavir 229E PCR Nasal Coronavir HKU1 PCR Nasal Coronavir NL63 PCR Nasal Coronavir OC43 PCR Nasal Enterovir/Rhinovir PCR Nasal Influenza B PCR Nasal Influenza A PCR Nasal Parainfluen 1 PCR Nasal Parainfluen 2 PCR Nasal Parainfluen 3 PCR Nasal Parainfluen 4 PCR Nasal RSV (PCR) Nasal B.pertussis DNA PCR Nasal C.pneumoniae (PCR) Mike Human Metapneumo PCR Nasal M.pneumoniae (PCR) Nasal SARS-CoV-2 (PCR) 02/10/24 22:36 WBC RBC Hgb Hct MCV MCH MCHC RDW Plt Count MPV Neut # (Auto) Lymph # (Auto) [place] # (Auto) Eos # (Auto) Baso # (Auto) Absolute Nucleated RBC Nucleated RBC % Sodium Potassium Chloride Carbon Dioxide Anion Gap BUN Creatinine Estimated GFR (MDRD) Glucose Calcium Total Bilirubin AST ALT Alkaline Phosphatase Total Protein Albumin Globulin Albumin/Globulin Ratio Lipase Urine Color Urine Clarity Urine pH Ur Specific [place] Urine Protein Urine Glucose (UA) Urine Ketones Urine Occult Blood Urine Nitrite Urine Bilirubin Urine Urobilinogen Ur Leukocyte Esterase Urine RBC Urine WBC Ur Squamous Epith Cells Urine Bacteria Ur Microscopic Review Urine Culture Comments Nasal Adenovirus (PCR) NOT DETECTED Nasal B. parapertussis DNA (PCR) NOT DETECTED Nasal Coronavir 229E PCR NOT DETECTED Nasal Coronavir HKU1 PCR NOT DETECTED Nasal Coronavir NL63 PCR NOT DETECTED Nasal Coronavir OC43 PCR NOT DETECTED Nasal Enterovir/Rhinovir PCR NOT DETECTED Nasal Influenza B PCR NOT DETECTED Nasal Influenza A PCR NOT DETECTED Nasal Parainfluen 1 PCR NOT DETECTED Nasal Parainfluen 2 PCR NOT DETECTED Nasal Parainfluen 3 PCR NOT DETECTED Nasal Parainfluen 4 PCR NOT DETECTED Nasal RSV (PCR) NOT DETECTED Nasal B.pertussis DNA PCR NOT DETECTED Nasal C.pneumoniae (PCR) NOT DETECTED Mike Human Metapneumo PCR NOT DETECTED Nasal M.pneumoniae (PCR) NOT DETECTED Nasal SARS-CoV-2 (PCR) NOT DETECTED PD Medical Decision Making - ED course Complexity details: reviewed results, re-evaluated patient, considered diff erential, d/w patient, d/w family ED course: The patient was worked up with labs, which showed hyponatremia at 126. He was also worked up with urinalysis which did show some contamination but was also convincingly positive. The patient was given a liter 0.9 normal saline as well as doses of Zofran and Bactrim. He had no complaints of nausea in the ED and did not vomit. He ambulated to the bathroom with his cane and otherwise unassisted twice without difficulty. The patient was not found to have any focal deficits on exam and I felt he was stable for discharge home. I have prescribed the remainder of his antibiotics plus Zofran. We have discussed the usual indications for return. Departure - Departure Disposition: 01 Home, Self Care Clinical Impression: Dehydration, Hyponatremia Vomiting Qualifiers: Vomiting type: bilious vomiting Nausea presence: with nausea Qualified Code(s): R11.14 - Bilious vomiting UTI (urinary tract infection) Qualifiers: Urinary tract infection type: acute cystitis Hematuria presence: without hematuria Qualified Code(s): N30.00 - Acute cystitis without hematuria Condition: Stable Instructions: ED Dehydration, ED UTI Cystitis Male, ED Nausea Vomiting Prescriptions: Sulfamethox/Trimeth 800/160 [Bactrim Ds 800/160] 1 each PO BID #14 tablet Ondansetron Odt [Zofran] 4 mg TL Q6H PRN #10 tablet PRN Reason: Nausea / Vomiting Comments: You were dehydrated today and we have treated you with IV fluids for this. Your sodium was also low, probably from the vomiting, and the IV fluids that you received contains sodium to help with this. You were given a dose of nausea medicine in the emergency department, and we have also given you a dose of antibiotics for urinary tract infection. You have been able to walk to the bathroom twice without difficulty while here and you are stable for discharge home. A prescription for your antibiotics on some nausea medicine has been electronically transmitted to the [facility] pharmacy in [place]. Please pick these up tomorrow and take them as directed. Is important that you get plenty of clear liquids to drink. You should take your nausea medicine 30 to 60 minutes before trying to drink anything to minimize the chances of vomiting again. Please do not try to eat anything until you have gone at least 24 hours without any vomiting. When you do try eating again, stick with simple starches such as Ramen noodles or saltine crackers that are easy to digest and light on your system. If you tolerate these okay then you may advance your diet slowly back to normal foods. Please follow-up with your primary doctor as needed. Forms: PCP List Discharge Date/Time: 02/11/24 02:05
[2024-02-11] MEDS ORDERED: SULFAMETH/TRIMETH DS 800/160 MG TABLET PO ONE (01:52)
[2024-02-11] MEDS ORDERED: ONDANSETRON ODT 4 MG TABLET ONE (01:52)
[2024-02-11] MEDS: ONDANSETRON ODT 4 MG TABLET TL STA (01:54)
[2024-02-11] MEDS: SULFAMETH/TRIMETH DS 800/160 MG TABLET PO STA (01:54)
[2024-02-11 02:13] VITALS: BP 130/91; O2SAT 99
== END 2024-02-11 02:05 | disposition home or self-care (01) ==
LOC: ED 21:43
DX: E86.0 Dehydration (principal); E87.1 Hypo-osmolality and hyponatremia; N39.0 Urinary tract infection, site not specified; R11.14 Bilious vomiting; I10 Essential (primary) hypertension; E78.00 Pure hypercholesterolemia, unspecified; I25.10 Atherosclerotic heart disease of native coronary artery without angina pectoris; I48.91 Unspecified atrial fibrillation; I73.9 Peripheral vascular disease, unspecified; J44.9 Chronic obstructive pulmonary disease, unspecified; G47.30 Sleep apnea, unspecified; N40.1 Benign prostatic hyperplasia with lower urinary tract symptoms; Z79.01 Long term (current) use of anticoagulants; Z79.899 Other long term (current) drug therapy
CPT/HCPCS: 36415; 80053; 81001; 83690; 85025; 87633; 96360; 99283; A9270; Q0162; 81003; 87086